=== PATIENT | male | born 1950 | race Caucasian/White ===

== ENCOUNTER 2016-04-28 04:21 | Observation (INO) | payer MEDICARE ==
[~2016-04-28] VITALS: Ht 172.7 cm; Wt 70.0 kg
[2016-04-28] VITALS (8 sets, daily range): BP systolic 92–135; BP diastolic 51–89; PULSE 63–75; RESP 16–26; TEMP 97.4–99.1; O2SAT 96–100
[~2016-04-28 04:21] MED LIST: ASPI81 PO; CIAL5TAB PO; CLOP75TA PO; LISI2.5T3 PO; METO50TA11 PO; NEXI40CA PO; NITR.4 SL; OXYC20TA; PRAV20 PO; PROT40TA PO; SPIR25TA PO
[2016-04-28] MEDS ORDERED: SODIUM CHLORIDE 0.9% FLUSH 5 ML FLUSH IVF PRN (04:45)
[2016-04-28 04:53] LABS: AUTOMATED NEUTROPHIL # 4.9 TH/MM3 (1.8-7.7); BASOPHIL # 0.1 TH/MM3 (0-0.2); BASOPHIL % 1.3 % (0.0-2.0); EOSINOPHIL # 0.6 TH/MM3 (0-0.4); EOSINOPHIL % 8.3 % (0.0-4.0); HEMATOCRIT 42.6 % (39.0-51.0); HEMO FLAGS DIFF FINAL; LYMPH % 14.4 % (9.0-44.0); MEAN CELL VOLUME 85.4 FL (80.0-100.0); MEAN CORPUSCULAR HEMOGLOBIN 28.6 PG (27.0-34.0); MEAN CORPUSCULAR HGB CONC 33.5 % (32.0-36.0); MONO % 7.7 % (0.0-8.0); NEUT % 68.3 % (16.0-70.0); PLATELET COUNT 232 TH/MM3 (150-450); RED BLOOD COUNT 4.99 MIL/MM3 (4.50-5.90); RED CELL DISTRIBUTION WIDTH 16.6 % (11.6-17.2); WHITE BLOOD COUNT 7.1 TH/MM3 (4.0-11.0)
[2016-04-28 05:04] LABS: APTT (PATIENT) 32.2 SEC (24.3-30.1); INTERNATIONAL NORMALIZED RATIO 1.8 RATIO; PROTHROMBIN TIME - PATIENT 20.7 SEC (9.8-11.6)
[2016-04-28 05:06] LABS: ANION GAP 8 MEQ/L (5-15); AST (GOT) 139 U/L (15-37); BICARBONATE 27.1 MEQ/L (21.0-32.0); BLOOD UREA NITROGEN 20 MG/DL (7-18); CHLORIDE 103 MEQ/L (98-107); GLOMERULAR FILTRATION RATE 76 ML/MIN (>89); MAGNESIUM 1.9 MG/DL (1.5-2.5); POTASSIUM 4.5 MEQ/L (3.5-5.1); SODIUM (NA) 138 MEQ/L (136-145)
[2016-04-28 05:11] LABS: ALKALINE PHOSPHATASE 157 U/L (45-117); ALT (GPT) 139 U/L (12-78); TOTAL BILIRUBIN ADULT 0.6 MG/DL (0.2-1.0)
[2016-04-28] MEDS ORDERED: LISI2.5T3 PO (05:18)
[2016-04-28] MEDS ORDERED: TORS10TA2 PO (05:18)
[2016-04-28] MEDS ORDERED: METO-426 PO (05:18)
[2016-04-28] MEDS ORDERED: COUM5TAB PO (05:18)
[2016-04-28] MEDS ORDERED: ASPI81CH CHEW (05:18)
[2016-04-28 05:28] LABS: CREATINE KINASE 58 U/L (39-308)
--- NOTE | 2016-04-28 05:32 | PD ---
HPI Chief Complaint: Respiratory Distress Time Seen by Provider: 04:37 Travel History International Travel<30 days: No Contact w/Intl Traveler<30days: No Traveled to known affect area: No History of Present Illness HPI The patient is 65 year old male who presents to the [facility] emergency department with a history of coronary artery disease and congestive heart failure with an ejection fraction that ranges between 14 and 18%, reportedly currently on the transplant list. The patient reports that he is followed by in [place], as well as a DrQian at the [facility] for his cardiac care. The patient reports that a month ago he developed atrial fibrillation. He reports that he is anticoagulated with warfarin. The patient reports that he is scheduled to have synchronized cardioversion. The patient reports that he has been experiencing shortness of breath over the last 2-3 months thought to be related to his congestive heart failure. The patient reports that this evening the shortness of breath came so severe just with any movement that he called ambulance services. He reports that he has had a chronic cough. He denies having any increased congestion, we gain, or lower extremity edema. He reports that he is on a diuretic. He reports that he last had a cardiac catheterization with stent placement in October 2015 in [place]. He reports that he's had a total of 4 stents placed previously. On review of systems, he reports that yesterday he did have an episode of diarrhea. The patient denies having any recent fevers, worsening cough, congestion, neck pain, chest pain, abdominal pain, vomiting, urinary symptoms, or neurologic symptoms. [facility] Past Medical History Narrative Medical The patient's past medical history is significant for hyperlipidemia, ulcerative colitis, history of pneumonia, history of acid reflux, history of an ischemic cardiomyopathy, history of recently being diagnosed with atrial fibrillation, coronary artery disease status post 4 prior stents being placed, history of atrial fibrillation Hx Anticoagulant Therapy: Yes Heart Rhythm Problems: No (PATIENT STATES HE DOES NOT HAVE ANY CARDIAC RHYTHM ISSUES DESPITE PACER) Cancer: No Cardiac Catheterization: Yes (4 STENTS) Cardiovascular Problems: Yes High Cholesterol: No Chest Pain: No Congestive Heart Failure: No Diminished Hearing: No Diverticulitis: Yes Endocrine: No Gastrointestinal Disorders: Yes (ULCERATIVE CHOLITIS, ESOPHAGEAL REFLUX) GERD: Yes Genitourinary: No Hiatal Hernia: Yes (REPAIRED 25 YRS AGO) Hypertension: Yes Immune Disorder: No Implanted Vascular Access Dvce: Yes Musculoskeletal: No Neurologic: No Psychiatric: No Reproductive: No Respiratory: Yes Myocardial Infarction: Yes Ulcer: Yes Influenza Vaccination: No Past Surgical History Narrative Surgical The patient's past surgical history is significant for cardiac catheterization with 4 prior stents placed, history of a hiatal hernia repair with Maribel fundoplication, bilateral rotator cuff surgery, sinus surgery, back surgery, central hernia repair, tonsillectomy, partial colon resection, appendectomy, right femoral-popliteal bypass. Abdominal Surgery: Yes (HERNIA REPAIR X2) AICD: Yes (2007 metronic defib placed on r; defib on l removed) Appendectomy: Yes Cardiac Surgery: Yes (PACEMAKER) Cholecystectomy: Yes Coronary Stent: Yes Ear Surgery: No Endocrine Surgery: No Eye Surgery: Yes (2007) Genitourinary Surgery: No Neurologic Surgery: Yes (BACK) Oral Surgery: Yes (TONSILS REMOVED) Pacemaker: Yes Thoracic Surgery: No Tonsillectomy: Yes (1966) Other Surgery: Yes (SINUS KIMBERLY; 10" bowel removed 1986; hernia 2007) Social History Alcohol Use: Yes (BEER A DAY) Tobacco Use: No Substance Use: No Allergies-Medications (Allergen,Severity, Reaction): Coded Allergies: Clindamycin (Verified Allergy, Severe, RASH, FEVER, 04/28/16) Penicillin (Verified Allergy, Severe, RASH, 04/28/16) Remicade (Verified Allergy, Severe, FEVER, RASH, 04/28/16) Reported Meds & Prescriptions Reported Meds & Active Scripts Active Reported Coumadin (Warfarin) 5 Mg Tab 5 Mg PO DAILY Torsemide 10 Mg Tab 10 Mg PO DAILY PRN Lisinopril 2.5 Mg Tab 2.5 Mg PO DAILY Metoprolol Tartrate 75 Mg Tab 75 Mg PO BID Aspirin 81 Mg Chew 81 Mg CHEW DAILY Review of Systems General / Constitutional: No: Fever Eyes: No: Visual changes HENT: No: Headaches Cardiovascular: Positive: Dyspnea on exertion, No: Chest Pain or Discomfort, Edema Respiratory: Positive: Cough (chronic, no worsening), Shortness of Breath Gastrointestinal: No: Abdominal Pain Genitourinary: No: Dysuria Musculoskeletal: No: Pain Skin: No Rash Neurologic: No: Weakness Psychiatric: No: Depression Endocrine: No: Polydipsia Hematologic/Lymphatic: No: Easy Bruising Physical Exam Narrative General: The patient is a well-developed well-nourished male in no acute distress. Head and Neck exam: Head is normocephalic atraumatic. Eyes: Pupils are equal round and reactive to light. Nose: Midline septum with pink mucous membranes Mouth: Dentition unremarkable. Moist mucus membranes. Posterior oropharynx is not erythematous. No tonsillar hypertrophy. Uvula midline. Airway patent. Neck: No palpable lymphadenopathy. No nuchal rigidity. No thyromegaly. Cardiovascular: Regular rate and rhythm without murmurs, gallops, or rubs. Atrial flutter noted on telemetry. Lungs: The patient has decreased breath sounds in bilateral bases, no wheezes, rhonchi , or crackles are audible. Patient's O2 saturation on room air is 99-100%. Abdomen: Soft, without tenderness to palpation in all 4 quadrants of the abdomen. No guarding, rebound, or rigidity. Normal bowel sounds are audible. Extremities: No clubbing or cyanosis, the patient has trace lower extremity edema. 2+ pulses in all 4 extremities. Back: No spinous process tenderness to palpation. No costovertebral angle tenderness to palpation. Neurologic Exam: Grossly nonfocal. Skin Exam: No rash noted. Intact skin that is warm and dry. Data Data Last Documented VS Vital Signs Date Time Temp Pulse Resp B/P Pulse Ox O2 Delivery O2 Flow Rate FiO2 04/28/16 04:44 100 Nasal Cannula 2 04/28/16 04:39 26 04/28/16 04:35 97.9 68 114/82 Orders Electrocardiogram (04/28/16 04:40) B-Type Natriuretic Peptide (04/28/16 04:40) Ckmb (Isoenzyme) Profile (04/28/16 04:40) Complete Blood Count With Diff (04/28/16 04:40) Comprehensive Metabolic Panel (04/28/16 04:40) D-Dimer (04/28/16 04:40) Magnesium (Mg) (04/28/16 04:40) Prothrombin Time / Inr (Pt) (04/28/16 04:40) Act Partial Throm Time (Ptt) (04/28/16 04:40) Troponin I (04/28/16 04:40) Lipase (04/28/16 04:40) Chest, Single Ap (04/28/16 04:40) Ecg Monitoring (04/28/16 04:40) Bilateral Bp Monitoring (04/28/16 04:40) Iv Access Insert/Monitor (04/28/16 04:40) Oximetry (04/28/16 04:40) Oxygen Administration (04/28/16 04:40) Sodium Chloride 0.9% Flush (Ns Flush) (04/28/16 04:45) Nitroglycerin 2% Oint (Nitroglycerin 2% (04/28/16 05:45) Aspirin Chew (Aspirin Chew) (04/28/16 05:45) Ct Pulmonary Angiogram (04/28/16 05:34) Magnesium Sulfate 1 Gm Premix (Magnesium (04/28/16 05:45) Thiamine Inj (Thiamine Inj) (04/28/16 05:45) Iohexol 350 Inj (Omnipaque 350 Inj) (04/28/16 06:05) Lactic Acid Sepsis Protocol (04/28/16 06:16) Blood Culture (04/28/16 06:16) Aztreonam Inj (Azactam Inj) (04/28/16 06:16) Levofloxacin 750 Mg Premix Inj (Levaquin (04/28/16 06:16) Furosemide Inj (Lasix Inj) (04/28/16 06:30) Admit Order (Ed Use Only) (04/28/16 06:32) Labs Laboratory Tests Test 04/28/16 04:45 White Blood Count 7.1 TH/MM3 Red Blood Count 4.99 MIL/MM3 Hemoglobin 14.3 GM/DL Hematocrit 42.6 % Mean Corpuscular Volume 85.4 FL Mean Corpuscular Hemoglobin 28.6 PG Mean Corpuscular Hemoglobin 33.5 % Concent Red Cell Distribution Width 16.6 % Platelet Count 232 TH/MM3 Mean Platelet Volume 8.1 FL Neutrophils (%) (Auto) 68.3 % Lymphocytes (%) (Auto) 14.4 % Monocytes (%) (Auto) 7.7 % Eosinophils (%) (Auto) 8.3 % Basophils (%) (Auto) 1.3 % Neutrophils # (Auto) 4.9 TH/MM3 Lymphocytes # (Auto) 1.0 TH/MM3 Monocytes # (Auto) 0.6 TH/MM3 Eosinophils # (Auto) 0.6 TH/MM3 Basophils # (Auto) 0.1 TH/MM3 CBC Comment DIFF FINAL Differential Comment Prothrombin Time 20.7 SEC Prothromb Time International 1.8 RATIO Ratio Activated Partial 32.2 SEC Thromboplast Time D-Dimer Quantitative (PE/DVT) 1.94 MG/L FEU Sodium Level 138 MEQ/L Potassium Level 4.5 MEQ/L Chloride Level 103 MEQ/L Carbon Dioxide Level 27.1 MEQ/L Anion Gap 8 MEQ/L Blood Urea Nitrogen 20 MG/DL Creatinine 0.98 MG/DL Estimat Glomerular Filtration 76 ML/MIN Rate Random Glucose 87 MG/DL Calcium Level 8.7 MG/DL Magnesium Level 1.9 MG/DL Total Bilirubin 0.6 MG/DL Aspartate Amino Transf 139 U/L (AST/SGOT) Alanine Aminotransferase 139 U/L (ALT/SGPT) Alkaline Phosphatase 157 U/L Total Creatine Kinase 58 U/L Troponin I 0.03 NG/ML B-Type Natriuretic Peptide 1264 PG/ML Total Protein 7.1 GM/DL Albumin 3.1 GM/DL Lipase 66 U/L [facility] Medical Decision Making Medical Screen Exam Complete: Yes Emergency Medical Condition: Yes Medical Record Reviewed: Yes Interpretation(s) Last Impressions Chest X-Ray 04/28/16 0440 Signed Impressions: Service Date/Time: Thursday, April 28, 2016 04:38 - CONCLUSION: 1. Bibasilar density could be atelectasis or pneumonia. 2. Cardiomegaly. Trever Hinojosa MD Differential Diagnosis Congestive heart failure exacerbation, versus pneumonia, versus pulmonary hypertension, versus pulmonary fibrosis Narrative Course During the course of the patients emergency department visit, the patients history, examination, and differential diagnosis were reviewed with the patient. The patient had IV access obtained and blood work sent for analysis. The patient was placed on a monitor technician with oximetry and blood pressure monitoring. An EKG was done on arrival. The patient's EKG shows atrial flutter heart rate of 66, no acute ST segment elevation is noted. Occasional PVCs are noted. The patient was provided aspirin 162 mg by mouth 1. The patient was given nitroglycerin 1/2 inch the chest mcdonald patient's blood pressures a systolic in the 1 teens to 120s. The patients laboratory studies were reviewed and remarkable for a CBC that shows a white count 7.1, hemoglobin 14.3, platelets 232 with eosinophils 8.3. CMP is remarkable for BUN is 20, GFR of 76, AST 139, ALT 139, alkaline phosphatase 157, total bilirubin 0.6, initial set of cardiac enzymes are negative, BNP is 1264, lipase 66, INR is 1.8, d-dimer is 1.94, CTA to rule out PE has been ordered. Radiology studies were reviewed and remarkable for a chest x-ray that shows by bibasilar infiltrates, atelectasis versus pneumonia according to the reading radiologist, cardiomegaly. I suspect that the patient's infiltrates are really related to pulmonary edema given the patient's history of congestive heart failure and elevated BNP. However, a CTA to rule out PE has also been ordered which showed shows a more detailed the patient's lungs. In the meantime the patient had blood cultures 2 collected, lactic acid was ordered. The patient was given an initial dose of IV antibiotics to cover for pneumonia. The patient was also given Lasix 40 mg IV. CTA shows a filling defect within the right lower lobe branches that could be related to small pulmonary emboli, versus unopacified blood, radiologist recommends repeating the study in 24 hours, may be warranted. Cardiomegaly with evidence of coronary artery stenting is noted, minimal right basilar density which could be atelectasis versus minimal infiltrate. Given the fact that the patient is subtherapeutic regarding his anticoagulation on Coumadin, the patient will be started on heparin while PE is being further evaluated. The patients results were discussed with the patient, including the plan of care. I explained that further testing and/ or monitoring is indicated based on the patients history, examination, and/ or laboratory findings. Therefore, I recommended admission for additional evaluation. The patient expressed understanding and was agreeable with this plan. The patient was admitted to the hospital in stable condition and [facility] Sepsis Criteria SIRS Criteria (2 or more): RR > 20 or PaCO2 < 32 Physician Communication Physician Communication The patient's case is discussed with Dr. Watts who did agree to admit the patient for further evaluation and treatment at this time. Diagnosis Primary Impression: Acute exacerbation of congestive heart failure Qualified Code: I50.23 - Acute on chronic systolic congestive heart failure Additional Impression: Atrial flutter Qualified Code: I48.92 - Atrial flutter, unspecified type Admitting Information Admitting Physician Requests: Evelyn Catherine MD Apr 28, 2016 05:32
[2016-04-28] MEDS ORDERED: MAGNESIUM SULFATE 1 GM PREMIX 100 ML IV ONE (05:45)
[2016-04-28] MEDS ORDERED: NITROGLYCERIN 2% OINT 1 GM PACKET TOPICAL ONE (05:45)
[2016-04-28] MEDS ORDERED: THIAMINE INJ 100 MG in SODIUM CHLORIDE 0.9% INJ 100 ML IV ONE (05:45)
[2016-04-28] MEDS ORDERED: ASPIRIN 81 MG CHEW TAB CHEW ONE (05:45)
--- NOTE | 2016-04-28 05:47 | RADRPT ---
EXAM DATE/TIME: 04/28/2016 04:38 [facility] COMPARISON: CHEST SINGLE AP, February 12, 2014, 5:13. INDICATIONS : Pt having shortness of breath x few hours. MEDICAL HISTORY : None. SURGICAL HISTORY : None. ENCOUNTER: Initial ACUITY: 1 day PAIN SCORE: 8/10 LOCATION: Bilateral chest FINDINGS: A single view of the chest demonstrates cardiomegaly and a right-sided defibrillator, unchanged. Righ t basilar density. The cardiomediastinal contours are unremarkable. Osseous structures are intact. CONCLUSION: 1. Bibasilar density could be atelectasis or pneumonia. 2. Cardiomegaly. Trever Hinojosa MD on April 28, 2016 at 5:43 Board Certified Radiologist. This report was verified electronically.
[2016-04-28] MEDS ORDERED: IOHEXOL 350 MG/ML 10 ML VIAL (for RAD DIAG) IV ONE (06:05)
[2016-04-28] MEDS ORDERED: LEVOFLOXACIN 750 MG PREMIX INJ 150 ML IV STA (06:16)
[2016-04-28] MEDS ORDERED: AZTREONAM INJ 2,000 MG in SODIUM CHLORIDE 0.9% INJ 100 ML IV STA (06:16)
[2016-04-28] MEDS ORDERED: FUROSEMIDE 40 MG/4 ML VIAL IV PUSH ONE (06:30)
[2016-04-28] MEDS ORDERED: BISACODYL 10 MG SUPP PR PRN (06:45)
[2016-04-28] MEDS ORDERED: SODIUM CHLORIDE 0.9% FLUSH 5 ML FLUSH FLUSH PRN (06:45)
[2016-04-28] MEDS ORDERED: RESP: ALBUTEROL 2.5 MG/IPRATROPIUM 0.5 MG NEB (PRN) NEB (06:45)
[2016-04-28] MEDS ORDERED: ACETAMINOPHEN/HYDROcodone 325 MG/5 MG TAB PO PRN (06:45)
[2016-04-28] MEDS ORDERED: ACETAMINOPHEN 325 MG TAB PO PRN (06:45)
--- NOTE | 2016-04-28 06:45 | RADRPT ---
EXAM DATE/TIME: 04/28/2016 05:52 [facility] COMPARISON: CHEST SINGLE AP, April 28, 2016, 4:38. INDICATIONS : Short of breath. Evaluate for embolism. IV CONTRAST: 80 cc Omnipaque 350 (iohexol) IV RADIATION DOSE: 9.16 CTDIvol (mGy) MEDICAL HISTORY : Hypertension. Myocardial infarction. Gastroesophageal reflux disease.Cardiac stent. SURGICAL HISTORY : Appendectomy. Cholecystectomy.Pacemaker.Cardiac catherization. ENCOUNTER: Initial ACUITY: 1 day PAIN SCALE: 0/10 LOCATION: chest TECHNIQUE: Volumetric scanning of the chest was performed using a pulmonary embolism protocol MIP images were re constructed. Using automated exposure control and adjustment of the mA and/or kV according to patien t size, radiation dose was kept as low as reasonably achievable to obtain optimal diagnostic quality images. FINDINGS: PULMONARY ARTERIES: Small filling defect within right lower lobe branches and suspected small pulmonary emboli versus sofia pacified blood. No filling defects are seen in the pulmonary arteries through the segmental level on the left.LUNGS: There is minimal density in the right lower lobe. Left lung clear. There is pneumothorax . No concer calista pulmonary nodule is visualized. PLEURAE: There is no pleural thickening or pleural effusion. MEDIASTINUM: There is good visualization of the great vessels of the middle mediastinum. No evidence of mediastin al or hilar adenopathy/mass. Cardiomegaly. Coronary artery stents. MUSCULOSKELETAL: Within normal limits for patient age. MISCELLANEOUS: The visualized upper abdominal organs demonstrate no acute abnormality. CONCLUSION: 1. Filling defects within right lower lobe branches could be related to small pulmonary emboli versus unopacified blood. Repeat study in 24 hours may be warranted. 2. Cardiomegaly and coronary artery stents. 3. Minimal right basilar density, could be atelectasis or minimal infiltrate. Trever Hinojosa MD on April 28, 2016 at 6:34 Board Certified Radiologist. This report was verified electronically.
[2016-04-28] MEDS ORDERED: PILL SPLITTER OTHER PRN (07:30)
[2016-04-28] MEDS: HEPARIN-D5W INJ 250 ML IV SCH ×2 (08:11→23:56)
--- NOTE | 2016-04-28 08:23 | EKG ---
Date Performed: 04/28/2016 Time Performed: 04:30:03 PTAGE: 65 years EKG: ATRIAL FLUTTER/TACHYCARDIA WITH ABERRANT CONDUCTION OR VENTRICULAR PREMATURE COMPLEXES ANTE ROLATERAL MYOCARDIAL INFARCTION NONSPECIFIC ST/T CHANGES ABNORMAL ECG PREVIOUS TRACING : 02/12/2014 05.05 Compared to previous tracing, atrial flutter has replaced S inus rhythm . DOCTOR: Augustin Hamilton Interpretating Date/Time 04/28/2016 08:22:05
--- NOTE | 2016-04-28 08:50 | HHI.HP ---
[facility] Nikolas Diego M.D. Admission Diagnosis CHF exacerbation Diagnoses: Chief Complaint: Shortness of breath, CHF Travel History International Travel<30 Days: No Contact w/Intl Traveler <30 Da: No Traveled to Known Affected Are: No History of Present Illness Mr. Hooker is a pleasant 65-year-old male with a history of coronary artery disease status post 4 stents, congestive heart failure with LVEF 14-18% who presents to the emergency department today due to worsening shortness of breath over the last 2-3 months. On the day of admission, his shortness of breath became very severe within small movement and subsequently called ambulance service. Per patient he is currently on a transplant list. His last cardiac catheterization with stent placements was done in October 2015 in [place]. At the time of this interview patient reports much improvement of his symptoms after Lasix in the emergency department. He denies any chest pain, shortness of breath, fever or chills. Denies any changes in bowel or bladder habits. He has seen Dr. Alicia before. Review of Systems ROS Limitations: Other (negative except as noted in the history of present illness) Past Family Social History Past Medical History Ischemic cardiomyopathy, atrial fibrillation, CAD status post stent placements. Ulcerative colitis, GERD Past Surgical History Hernia repair 2, appendectomy, cholecystectomy, pacemaker placement, tonsillectomy, back surgery, bowel resection in 1986. Reported Medications Coumadin (Warfarin) 5 Mg Tab 5 Mg PO DAILY Torsemide 10 Mg Tab 10 Mg PO DAILY PRN Lisinopril 2.5 Mg Tab 2.5 Mg PO DAILY Metoprolol Tartrate 75 Mg Tab 75 Mg PO BID Aspirin 81 Mg Chew 81 Mg CHEW DAILY Allergies: Coded Allergies: Clindamycin (Verified Allergy, Severe, RASH, FEVER, 04/28/16) Penicillin (Verified Allergy, Severe, RASH, 04/28/16) Remicade (Verified Allergy, Severe, FEVER, RASH, 04/28/16) Family History No family history of heart disease, Alzheimer's, Parkinson's. Social History Drinks 1 beer a day. Denies smoking or using illicit drugs. Physical Exam Vital Signs Vital Signs Date Time Temp Pulse Resp B/P Pulse Ox O2 Delivery O2 Flow Rate FiO2 04/28/16 06:00 63 21 135/89 100 Nasal Cannula 2 04/28/16 04:44 100 Nasal Cannula 2 04/28/16 04:39 26 100 Nasal Cannula 2 04/28/16 04:35 97.9 68 26 114/82 100 Physical Exam GENERAL: This is a well-nourished, well-developed patient, in no apparent distress. SKIN: No rashes, ecchymoses or lesions. Warm and dry. HEAD: Atraumatic. Normocephalic. No temporal or scalp tenderness. EYES: Pupils equal round and reactive. No injection or drainage. ENT: Nose without bleeding, purulent drainage or septal hematoma. Airway patent. NECK: Trachea midline. No lymphadenopathy. Supple, nontender, no meningeal signs. CARDIOVASCULAR: Regular rate and rhythm without murmurs, gallops, or rubs. No JVD. RESPIRATORY: Clear to auscultation. Breath sounds equal bilaterally. No wheezes , rales, or rhonchi. GASTROINTESTINAL: Abdomen soft, non-tender, nondistended. No guarding. MUSCULOSKELETAL: Extremities without clubbing, cyanosis, or edema. NEUROLOGICAL: Awake and alert. Cranial nerves II through XII intact. No focal neurological deficits. Normal speech. Laboratory Laboratory Tests Test 04/28/16 04/28/16 04:45 06:30 White Blood Count 7.1 Red Blood Count 4.99 Hemoglobin 14.3 Hematocrit 42.6 Mean Corpuscular Volume 85.4 Mean Corpuscular Hemoglobin 28.6 Mean Corpuscular Hemoglobin 33.5 Concent Red Cell Distribution Width 16.6 Platelet Count 232 Mean Platelet Volume 8.1 Neutrophils (%) (Auto) 68.3 Lymphocytes (%) (Auto) 14.4 Monocytes (%) (Auto) 7.7 Eosinophils (%) (Auto) 8.3 Basophils (%) (Auto) 1.3 Neutrophils # (Auto) 4.9 Lymphocytes # (Auto) 1.0 Monocytes # (Auto) 0.6 Eosinophils # (Auto) 0.6 Basophils # (Auto) 0.1 CBC Comment DIFF FINAL Differential Comment Prothrombin Time 20.7 Prothromb Time International 1.8 Ratio Activated Partial 32.2 Thromboplast Time D-Dimer Quantitative (PE/DVT) 1.94 Sodium Level 138 Potassium Level 4.5 Chloride Level 103 Carbon Dioxide Level 27.1 Anion Gap 8 Blood Urea Nitrogen 20 Creatinine 0.98 Estimat Glomerular Filtration 76 Rate Random Glucose 87 Calcium Level 8.7 Magnesium Level 1.9 Total Bilirubin 0.6 Aspartate Amino Transf 139 (AST/SGOT) Alanine Aminotransferase 139 (ALT/SGPT) Alkaline Phosphatase 157 Total Creatine Kinase 58 Troponin I 0.03 B-Type Natriuretic Peptide 1264 Total Protein 7.1 Albumin 3.1 Lipase 66 Lactic Acid Level 1.0 Date/Time Procedure Status Source Growth 04/28/16 06:35 Aerobic Blood Culture Received Blood Peripheral Pending 04/28/16 06:35 Anaerobic Blood Culture Received Blood Peripheral Pending Result Diagram: 04/28/1644404/28/[address] Angiography 04/28/1634 Signed Impressions: Service Date/Time: Thursday, April 28, 2016 05:52 - CONCLUSION: 1. Filling defects within right lower lobe branches could be related to small pulmonary emboli versus unopacified blood. Repeat study in 24 hours may be warranted. 2. Cardiomegaly and coronary artery stents. 3. Minimal right basilar density, could be atelectasis or minimal infiltrate. Trever Hinojosa MD Chest X-Ray 04/28/16439 Signed Impressions: Service Date/Time: Thursday, April 28, 2016 04:38 - CONCLUSION: 1. Bibasilar density could be atelectasis or pneumonia. 2. Cardiomegaly. Trever Hinojosa MD Assessment and Plan Problem List: (1) Acute exacerbation of congestive heart failure ICD Code: I50.9 Status: Acute (2) Ischemic cardiomyopathy ICD Code: I25.5 Status: Acute (3) CAD (coronary artery disease) ICD Code: I25.10 Status: Chronic Assessment and Plan Mr. Hooker is a 65-year-old male with a history of coronary artery disease status post 4 stents, ischemic cardiomyopathy with ejection fraction 14-18% status post AICD placement who presents to the emergency department due to shortness of breath that started 2-3 months ago but much worse last night. After Lasix in the ED patient reports much improvement of his symptoms. - Acute exacerbation of congestive heart failuresystolic - BNP 1264. - Received furosemide 40 mg IV once. Also received Levaquin IV and aztreonam IV. - CT PE protocol is equivocal regarding pulmonary embolism. Radiologist recommends repeat CT PE protocol in 24 hours. - If repeat CT PE shows no PE, we can discontinue heparin drip. - Patient's blood pressure is on the lower side. We will switch to Bumex 1mg PO Qday starting 04/29/2016. - Patient reports leg cramps when he takes Torsemide. - Possible Community Acquired pneumonia - Patient received aztreonam and levofloxacin in the ED. - We'll continue Levaquin PO for 7 days. - Ischemic cardiomyopathy - LVEF reportedly 14-18%. 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. - AICD noted on CXR - Continue Aspirin, metoprolol 75mg Qday, Lisinopril 2.5mg Qday. - Atrial flutter. - EKG reviewed by me. - Currently on warfarin. INR 1.8 on admission. - Will consult Dr. Alicia for further input. Full code. Warfarin (INR 1.8), Heparin drip. Problem Qualifiers (1) Acute exacerbation of congestive heart failure: Qualified Code: I50.23 - Acute on chronic systolic congestive heart failure Iris Damon DO Apr 28, 2016 08:50
[2016-04-28] MEDS ORDERED: WARFARIN SOD 5 MG TAB PO SCH (09:00)
[2016-04-28 09:36] LABS: HEMATOCRIT 43.2 % (39.0-51.0); MEAN CELL VOLUME 84.2 FL (80.0-100.0); MEAN CORPUSCULAR HEMOGLOBIN 28.1 PG (27.0-34.0); MEAN CORPUSCULAR HGB CONC 33.3 % (32.0-36.0); PLATELET COUNT 233 TH/MM3 (150-450); RED BLOOD COUNT 5.13 MIL/MM3 (4.50-5.90); RED CELL DISTRIBUTION WIDTH 16.4 % (11.6-17.2); REVIEW FLAG FINAL; WHITE BLOOD COUNT 7.3 TH/MM3 (4.0-11.0)
[2016-04-28 09:49] LABS: APTT (PATIENT) 39.7 SEC (24.3-30.1); INTERNATIONAL NORMALIZED RATIO 2.1 RATIO; PROTHROMBIN TIME - PATIENT 23.8 SEC (9.8-11.6)
[2016-04-28] MEDS: METOPROLOL TARTRATE 25 MG TAB PO SCH ×2 (11:03→22:59)
[2016-04-28] MEDS: LISINOPRIL 5 MG TAB PO SCH (11:03)
[2016-04-28] MEDS: SODIUM CHLORIDE 0.9% FLUSH 5 ML FLUSH FLUSH SCH ×2 (11:03→19:45)
[2016-04-28] MEDS: ONDANSETRON HCL 4 MG/2 ML VIAL IVP PRN ×2 (13:05→19:46)
[2016-04-28] MEDS ORDERED: PROCHLORPERAZINE INJ 10 MG/2 ML VIAL IM PRN (16:00)
[2016-04-28 17:26] LABS: APTT (PATIENT) 57.4 SEC (24.3-30.1)
[2016-04-28] MEDS: WARFARIN SOD 5 MG TAB PO SCH (17:48)
[2016-04-28 22:14] LABS: APTT (PATIENT) 58.4 SEC (24.3-30.1)
[2016-04-29] VITALS (8 sets, daily range): BP systolic 94–103; BP diastolic 57–74; PULSE 56–72; RESP 16–20; TEMP 96.5–98.4; O2SAT 94–99
[2016-04-29 05:13] LABS: AUTOMATED NEUTROPHIL # 4.1 TH/MM3 (1.8-7.7); BASOPHIL # 0.1 TH/MM3 (0-0.2); BASOPHIL % 1.2 % (0.0-2.0); EOSINOPHIL # 0.7 TH/MM3 (0-0.4); EOSINOPHIL % 9.4 % (0.0-4.0); HEMATOCRIT 43.7 % (39.0-51.0); HEMO FLAGS DIFF FINAL; LYMPH % 21.1 % (9.0-44.0); LYMPHOCYTE # 1.5 TH/MM3 (1.0-4.8); MEAN CELL VOLUME 84.6 FL (80.0-100.0); MEAN CORPUSCULAR HEMOGLOBIN 28.2 PG (27.0-34.0); MEAN CORPUSCULAR HGB CONC 33.3 % (32.0-36.0); MONO % 10.3 % (0.0-8.0); PLATELET COUNT 223 TH/MM3 (150-450); RED BLOOD COUNT 5.16 MIL/MM3 (4.50-5.90); RED CELL DISTRIBUTION WIDTH 16.2 % (11.6-17.2); WHITE BLOOD COUNT 7.1 TH/MM3 (4.0-11.0)
[2016-04-29 05:29] LABS: ALT (GPT) 94 U/L (12-78); ANION GAP 6 MEQ/L (5-15); AST (GOT) 46 U/L (15-37); BICARBONATE 27.8 MEQ/L (21.0-32.0); BLOOD UREA NITROGEN 19 MG/DL (7-18); CHLORIDE 103 MEQ/L (98-107); GLOMERULAR FILTRATION RATE 65 ML/MIN (>89); MAGNESIUM 1.8 MG/DL (1.5-2.5); POTASSIUM 4.1 MEQ/L (3.5-5.1); SODIUM (NA) 137 MEQ/L (136-145)
[2016-04-29 05:32] LABS: ALKALINE PHOSPHATASE 121 U/L (45-117); TOTAL BILIRUBIN ADULT 0.8 MG/DL (0.2-1.0)
[2016-04-29] MEDS ORDERED: LEVOFLOXACIN 750 MG PREMIX INJ 150 ML IV SCH (06:00)
--- NOTE | 2016-04-29 07:27 | MB ---
cc: ISAIAS COUGHLIN HANSCY M.D. DATE OF CONSULTATION: 04/28/2016 REASON FOR CONSULTATION Uncompensated heart failure. HISTORY OF PRESENT ILLNESS Mr. Hooker is a 65-year-old gentleman with coronary artery disease, previous PTCA plus stent, ejection fraction 14-18%, previously seen in my office room, was referred for transplant at [facility]. This October he was in [place] and had another stent placement. He is in atrial fibrillation/atrial flutter. He is supposed to be at [facility] today for cardioversion as well as a transplant work-up. He has atrial flutter. The gentleman developed shortness of breath and tiredness. He was brought to the emergency room. He was found in heart failure. IV diuretic was given. I was consulted for further evaluation and management. The chart was reviewed. The patient was evaluated. ALLERGIES 1. CLINDAMYCIN. 2. PENICILLIN. 3. REMICADE. SOCIAL HISTORY Negative for smoking and drinking. FAMILY HISTORY Noncontributory to his current medical condition. MEDICATIONS 1. Aspirin. 2. Heparin. 3. Levaquin. 4. Thiamine. 5. Magnesium. 6. Lasix. 7. Levofloxacin. 8. Lisinopril. 9. Metoprolol. 10.Morphine p.r.n. 11.Coumadin. REVIEW OF SYSTEMS He refers tiredness and shortness of breath, but no chest pain or chest discomfort. PHYSICAL EXAMINATION GENERAL: Alert, fully oriented. VITAL SIGNS: Blood pressure 98/63, pulse 63, respiratory rate 18. LUNGS: Ventilated. CARDIOVASCULAR: S1, S2, irregular. No gallop. ABDOMEN: Soft. No mass. EXTREMITIES: No edema. EKG DATA Electrocardiogram shows atrial flutter. LABORATORY DATA Hemoglobin 14.4, white blood cell count 7.3. Potassium 4.5, creatinine 0.98. BNP close to 1300. INR 2.1. ASSESSMENT AND RECOMMENDATION Mr. Hooker is very symptomatic. He has heart failure. He is on optimal medical treatment. He has severe coronary artery disease. Because his ejection fraction is 14% that makes him less likely to tolerate atrial flutter. He is apparently scheduled to be ablated at [facility]. At this point I am going to cardiovert him into sinus rhythm and send him to [facility] for ablation and transplant work-up. I will continue on the current medical management. He can be switched n.p.o. Lasix in the morning. The case was extensively discussed with him. I will keep him n.p.o. after breakfast and cardioversion tomorrow. MD CASSANDRA Sepulveda/TAMMY /8:05 PM /7:15 AM
[2016-04-29] MEDS: BUMETANIDE 1 MG TAB PO SCH (09:01)
[2016-04-29] MEDS: METOPROLOL TARTRATE 25 MG TAB PO SCH ×2 (09:01→20:26)
[2016-04-29] MEDS: SODIUM CHLORIDE 0.9% FLUSH 5 ML FLUSH FLUSH SCH ×2 (09:01→20:26)
[2016-04-29] MEDS: LISINOPRIL 5 MG TAB PO SCH (09:01)
[2016-04-29] MEDS: ASPIRIN 81 MG CHEW TAB CHEW SCH (09:01)
[2016-04-29] MEDS: LEVOFLOXACIN 500 MG TAB PO SCH (09:01)
[2016-04-29] MEDS ORDERED: INFLUENZA VIRUS VACCINE (QUADRIVALENT) 0.5 ML SYR IM ONE (10:00)
[2016-04-29] MEDS ORDERED: PNEUMOCOCCAL POLYVALENT INJ 25 MCG/0.5 ML SYR IM ONE (10:00)
[2016-04-29 11:02] LABS: APTT (PATIENT) 53.4 SEC (24.3-30.1)
[2016-04-29] MEDS ORDERED: PROPOFOL 200 MG/20 ML AMP IV ONE (12:26)
--- NOTE | 2016-04-29 16:43 | EKG ---
Date Performed: 04/28/2016 Time Performed: 10:56:14 PTAGE: 65 years EKG: ATRIAL FLUTTER/TACHYCARDIA WITH ABERRANT CONDUCTION OR VENTRICULAR PREMATURE COMPLEXES Prol onged corrected QT interval Consider anterolateral MA-age indterminate PREVIOUS TRACING : 04/28/2016 04.30.03 DOCTOR: Gerardo Miranda Interpretating Date/Time 04/29/2016 16:43:01
--- NOTE | 2016-04-29 16:51 | EKG ---
Date Performed: 04/28/2016 Time Performed: 17:03:55 PTAGE: 65 years EKG: ATRIAL FLUTTER/TACHYCARDIA Consider anterolateral [place]-ageindterminate. Prolonged corrected Q T interval PREVIOUS TRACING : 04/28/2016 10.56 DOCTOR: Gerardo Miranda Interpretating Date/Time 04/29/2016 16:49:51
--- NOTE | 2016-04-29 16:51 | EKG ---
Date Performed: 04/29/2016 Time Performed: 05:06:28 PTAGE: 65 years EKG: ATRIAL FLUTTER/TACHYCARDIA MARKED LEFT AXIS DEVIATION INTRAVENTRICULAR CONDUCTION DELAY Con sideranteroseptal [place]-ageindeterminate. PREVIOUS TRACING : 04/28/2016 22.40 DOCTOR: Gerardo Miranda Interpretating Date/Time 04/29/2016 16:51:19
--- NOTE | 2016-04-29 16:51 | EKG ---
Date Performed: 04/28/2016 Time Performed: 22:40:26 PTAGE: 65 years EKG: ATRIAL FLUTTER/TACHYCARDIA Consideranteroseptal [place]-ageindeterminate. Prolonged corrected QT interval PREVIOUS TRACING : 04/28/2016 17.03 DOCTOR: Gerardo Miranda Interpretating Date/Time 04/29/2016 16:50:36
[2016-04-29] MEDS: WARFARIN SOD 5 MG TAB PO SCH (17:11)
--- NOTE | 2016-04-29 17:17 | HHI.PR ---
Subjective Remarks Follow up for cardiomyopathy, Atrial flutter. Mr. Hooker is doing well. No acute concerns. He has been evaluated by EP (Dr. Alicia) and an ablation procedure is planned for today. Denies any CP, SOB, fever, chills. Objective Vitals Vital Signs Date Time Temp Pulse Resp B/P Pulse Ox O2 Delivery O2 Flow Rate FiO2 04/29/16 15:47 97.3 66 16 102/65 97 04/29/16 12:23 97.3 66 16 100/57 97 04/29/16 08:05 96.5 65 16 103/66 99 04/29/16 04:11 98.4 72 20 98/58 94 04/28/16 22:56 98.1 69 20 100/58 97 04/28/16 19:30 99.1 63 20 98/63 98 I/O 04/28/16 04/28/16 04/28/16 04/29/16 04/29/16 04/29/16 06:59 14:59 22:59 06:59 14:59 22:59 Output Total 600 ml Balance -600 ml Output Urine Total 600 ml # Voids 1 Result Diagram: 04/29/16 0500 04/29/16 [address] Angiography 04/28/16 0534 Signed Impressions: Service Date/Time: Thursday, April 28, 2016 05:52 - CONCLUSION: 1. Filling defects within right lower lobe branches could be related to small pulmonary emboli versus unopacified blood. Repeat study in 24 hours may be warranted. 2. Cardiomegaly and coronary artery stents. 3. Minimal right basilar density, could be atelectasis or minimal infiltrate. Trever Hinojosa MD Chest X-Ray 04/28/16 0440 Signed Impressions: Service Date/Time: Thursday, April 28, 2016 04:38 - CONCLUSION: 1. Bibasilar density could be atelectasis or pneumonia. 2. Cardiomegaly. Trever Hinojosa MD Objective Remarks GENERAL: AOX3, NAD. SKIN: Warm and dry. HEAD: Normocephalic. EYES: No scleral icterus. No injection or drainage. NECK: Supple, trachea midline. No JVD or lymphadenopathy. CARDIOVASCULAR: Regular rate and rhythm without murmurs, gallops, or rubs. RESPIRATORY: Breath sounds equal bilaterally. No accessory muscle use. GASTROINTESTINAL: Abdomen soft, non-tender, nondistended. MUSCULOSKELETAL: No cyanosis, or edema. BACK: Nontender without obvious deformity. No CVA tenderness. Procedures None. A/P Problem List: (1) Acute exacerbation of congestive heart failure ICD Code: I50.9 Status: Acute (2) Ischemic cardiomyopathy ICD Code: I25.5 Status: Acute (3) CAD (coronary artery disease) ICD Code: I25.10 Status: Chronic Assessment and Plan Mr. Hooker is a 65-year-old male with a history of coronary artery disease status post 4 stents, ischemic cardiomyopathy with ejection fraction 14-18% status post AICD placement who presents to the emergency department due to shortness of breath that started 2-3 months ago but much worse last night. After Lasix in the ED patient reports much improvement of his symptoms. - Acute exacerbation of congestive heart failuresystolic - BNP 1264 on admission. - Received furosemide 40 mg IV once. Also received Levaquin IV and aztreonam IV. - CT PE protocol is equivocal regarding pulmonary embolism. Radiologist recommends repeat CT PE protocol in 24 hours. - Discussed with patient at length. Patient is already on Warfarin. Repeat CT PE may not provide much benefit. - Patient opted not to undergo another CT PE study which I agree is a reasonable option. - Patient's blood pressure is on the lower side. Bumex 1mg PO Qday starting . - Patient reports leg cramps when he takes Torsemide. - Possible Community Acquired pneumonia - Patient received aztreonam and levofloxacin in the ED. - We'll continue Levaquin PO for 7 days. - Ischemic cardiomyopathy - LVEF reportedly 14-18%. 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 - AICD noted on CXR - Continue Aspirin, metoprolol 75mg Qday, Lisinopril 2.5mg Qday. - Atrial flutter. - EKG reviewed by me on 04/29/2016. - Currently on warfarin. INR 1.8 on admission. Repeat INR 2.1 on 04/28/2016. - Cardioversion planned for today 04/29/2016. Full code. Warfarin (Last INR 2.1). Will repeat INR in the AM. Problem Qualifiers (1) Acute exacerbation of congestive heart failure: Qualified Code: I50.23 - Acute on chronic systolic congestive heart failure Iris Damon DO Apr 29, 2016 17:16
--- NOTE | 2016-04-29 19:47 | HHI.PR ---
Subjective Remarks Tired Objective Vital Signs Date Time Temp Pulse Resp B/P Pulse Ox O2 Delivery O2 Flow Rate FiO2 04/29/16 15:47 97.3 66 16 102/65 97 04/29/16 12:23 97.3 66 16 100/57 97 04/29/16 08:05 96.5 65 16 103/66 99 04/29/16 04:11 98.4 72 20 98/58 94 04/28/16 22:56 98.1 69 20 100/58 97 I/O 04/28/16 04/28/16 04/28/16 04/29/16 04/29/16 04/29/16 07:00 15:00 23:00 07:00 15:00 23:00 Output Total 600 ml Balance -600 ml Output Urine Total 600 ml # Voids 1 Result Diagram: 04/29/16 0500 04/29/16 0500 Imaging Alert, fully oriented Lungs: ventilated Heart: S1, S2 irregular Abdomen: soft, no mass Ext: no edema Current Medications Medications (Trade) Dose Ordered Sig/Ami Route Start Time Stop Time Status Last Admin (NS Flush) 2 ml UNSCH PRN FLUSH 04/28/16 06:45 (NS Flush) 2 ml BID FLUSH 04/28/16 09:00 04/29/16 09:01 (Zofran Inj) 4 mg Q6H PRN IVP 04/28/16 06:45 04/28/16 19:46 (Dulcolax Supp) 10 mg DAILY PRN LA 04/28/16 06:45 (Tylenol) 650 mg Q6H PRN PO 04/28/16 06:45 ([place] 5-325 Mg) 1 tab Q4H PRN PO 04/28/16 06:45 04/28/16 11:49 (Morphine Inj) 2 mg Q3H PRN IV 04/28/16 06:45 (Aspirin Chew) 81 mg DAILY CHEW 04/29/16 09:00 04/29/16 09:01 (Prinivil) 2.5 mg DAILY PO 04/28/16 09:00 04/29/16 09:01 (Lopressor) 75 mg BID PO 04/28/16 09:00 04/29/16 09:01 (Coumadin) 5 mg DAILY@1600 PO 04/28/16 16:00 04/29/16 17:11 (Pill Splitter) 1 ea UNSCH PRN OTHER 04/28/16 07:30 (Levaquin) 500 mg DAILY PO 04/29/16 09:00 05/06/16 08:59 04/29/16 09:01 (Compazine Inj) 10 mg Q6H PRN IM 04/28/16 16:00 04/28/16 16:17 (Bumetanide) 1 mg DAILY PO 04/29/16 09:00 04/29/16 09:01 Assessment and Plan Problem List: (1) Atrial flutter Status: Acute Plan: SP cardioversion. Stable. Can be DH whenever is ok with the managing team (2) Congestive heart failure Status: Acute Plan: On optimal medical management. Follow up with the transplant team in [place] Problem Qualifiers (1) Atrial flutter: Qualified Code: I48.92 - Atrial flutter, unspecified type Joan Alicia MD Apr 29, 2016 19:47
[2016-04-30 00:08] VITALS: BP 104/58; PULSE 52; RESP 20; TEMP 97.2; O2SAT 93
[2016-04-30] MEDS: MORPHINE SULFATE 4 MG/ML INJ IV PRN ×3 (00:48→07:44)
--- NOTE | 2016-04-30 05:17 | MA ---
cc: SPARKLE LIRIANO M.D. DATE 04/29/2016 PROCEDURE Cardioversion. INDICATIONS Mr. Hooker is a 65-year-old gentleman with coronary artery disease, congestive heart failure, cardiomyopathy, dual defibrillators inserted, heart failure, on list for transplant, atrial flutter very symptomatic to undergo cardioversion. The risks, the nature and the benefit of the procedure are clearly stated to him. The risks include cardiac arrest, stroke, need for open heart surgery even . The patient understood and agreed to proceed. PROCEDURE After written informed consent was obtained, the patient was evaluated by the anesthesiologist. Once sedation verified, anterolateral pad was placed. A 200 sync biphasic joule was delivered that converted the patient into sinus rhythm. No incident reported. The patient tolerated the procedure. CONCLUSION Successful cardioversion. COMMENT AND RECOMMENDATION The patient will be kept in his room. He can be discharged home whenever it is okay with the managing team. Followup by the transplant team at [place]. MD CASSANDRA Sepulveda/CAROL /7:44 PM /5:03 AM
[2016-04-30 05:23] VITALS: BP 121/69; PULSE 69; RESP 20; TEMP 98.4; O2SAT 93
[2016-04-30 06:38] LABS: APTT (PATIENT) 34.7 SEC (24.3-30.1); INTERNATIONAL NORMALIZED RATIO 2.7 RATIO; PROTHROMBIN TIME - PATIENT 31.5 SEC (9.8-11.6)
[2016-04-30 07:12] VITALS: BP 117/77; PULSE 72; RESP 18; TEMP 97.8; O2SAT 97
[2016-04-30 07:49] VITALS: RESP 14
[2016-04-30 08:57] VITALS: PULSE 77
[2016-04-30] MEDS: SODIUM CHLORIDE 0.9% FLUSH 5 ML FLUSH FLUSH SCH (09:00)
[2016-04-30] MEDS: METOPROLOL TARTRATE 25 MG TAB PO SCH (09:43)
[2016-04-30] MEDS: ASPIRIN 81 MG CHEW TAB CHEW SCH (09:43)
[2016-04-30] MEDS: LISINOPRIL 5 MG TAB PO SCH (09:43)
[2016-04-30] MEDS: BUMETANIDE 1 MG TAB PO SCH (09:44)
[2016-04-30] MEDS: LEVOFLOXACIN 500 MG TAB PO SCH (09:44)
[2016-04-30] MEDS ORDERED: BUME1TAB PO (10:31)
--- NOTE | 2016-04-30 10:32 | HHI.PR ---
Objective Vitals Vital Signs Date Time Temp Pulse Resp B/P Pulse Ox O2 Delivery O2 Flow Rate FiO2 04/30/16 08:57 77 04/30/16 07:49 14 04/30/16 07:12 97.8 72 18 117/77 97 04/30/16 05:23 98.4 69 20 121/69 93 04/30/16 00:08 97.2 52 20 104/58 93 04/29/16 21:39 94/60 04/29/16 21:21 97.4 56 20 94 04/29/16 20:25 102/74 04/29/16 20:24 70 04/29/16 15:47 97.3 66 16 102/65 97 04/29/16 12:23 97.3 66 16 100/57 97 Result Diagram: 04/29/16 0500 04/29/16 0500 Objective Remarks GENERAL: AOX3, NAD. SKIN: Warm and dry. HEAD: Normocephalic. EYES: No scleral icterus. No injection or drainage. NECK: Supple, trachea midline. No JVD or lymphadenopathy. CARDIOVASCULAR: Regular rate and rhythm without murmurs, gallops, or rubs. RESPIRATORY: Breath sounds equal bilaterally. No accessory muscle use. GASTROINTESTINAL: Abdomen soft, non-tender, nondistended. MUSCULOSKELETAL: No cyanosis, or edema. BACK: Nontender without obvious deformity. No CVA tenderness. Procedures None. A/P Problem List: (1) Acute exacerbation of congestive heart failure ICD Code: I50.9 Status: Acute (2) Ischemic cardiomyopathy ICD Code: I25.5 Status: Acute (3) CAD (coronary artery disease) ICD Code: I25.10 Status: Chronic Assessment and Plan Mr. Hooker is a 65-year-old male with a history of coronary artery disease status post 4 stents, ischemic cardiomyopathy with ejection fraction 14-18% status post AICD placement who presents to the emergency department due to shortness of breath that started 2-3 months ago but much worse last night. After Lasix in the ED patient reports much improvement of his symptoms. - Acute exacerbation of congestive heart failuresystolic - BNP 1264 on admission. - Received furosemide 40 mg IV once. Also received Levaquin IV and aztreonam IV. - CT PE protocol is equivocal regarding pulmonary embolism. Radiologist recommends repeat CT PE protocol in 24 hours. - Discussed with patient at length. Patient is already on Warfarin. Repeat CT PE may not provide much benefit. - Patient opted not to undergo another CT PE study which I agree is a reasonable option. - Patient's blood pressure is on the lower side. Bumex 1mg PO Qday starting . - Patient reports leg cramps when he takes Torsemide. - Possible Community Acquired pneumonia - Patient received aztreonam and levofloxacin in the ED. - We'll continue Levaquin PO for 7 days. - Ischemic cardiomyopathy - LVEF reportedly 14-18%. - Followed by [facility] in [place] as well as [facility]. - AICD noted on CXR - Continue Aspirin, metoprolol 75mg Qday, Lisinopril 2.5mg Qday. - Atrial flutter. - EKG reviewed by me on 04/29/2016. - Currently on warfarin. INR 1.8 on admission. Repeat INR 2.1 on 04/28/2016. - Cardioversion planned for today 04/29/2016. Full code. Warfarin (Last INR 2.1). Will repeat INR in the AM. Problem Qualifiers (1) Acute exacerbation of congestive heart failure: Qualified Code: I50.23 - Acute on chronic systolic congestive heart failure Iris Damon DO Apr 30, 2016 10:32
--- NOTE | 2016-04-30 19:24 | HHI.DS ---
Discharge Summary Admission Date Apr 28, 2016 at 06:33 Discharge Date: Apr 30, 2016 Admitting Diagnosis CHF exacerbation (1) Acute exacerbation of congestive heart failure ICD Code: I50.9 Diagnosis: Principal (2) Ischemic cardiomyopathy ICD Code: I25.5 (3) CAD (coronary artery disease) ICD Code: I25.10 (4) Atrial flutter ICD Code: I48.92 Diagnosis: Principal Procedures None. Brief History - From Admission Mr. Hooker is a pleasant 65-year-old male with a history of coronary artery disease status post 4 stents, congestive heart failure with LVEF 14-18% who presents to the emergency department today due to worsening shortness of breath over the last 2-3 months. On the day of admission, his shortness of breath became very severe within small movement and subsequently called ambulance service. Per patient he is currently on a transplant list. His last cardiac catheterization with stent placements was done in October 2015 in [place]. At the time of this interview patient reports much improvement of his symptoms after Lasix in the emergency department. He denies any chest pain, shortness of breath, fever or chills. Denies any changes in bowel or bladder habits. He has seen Dr. Alicia before. CBC/BMP: 04/29/16 0500 04/29/16 0500 Significant Findings Laboratory Tests Test 04/28/16 04/28/16 04/28/16 04/28/16 04:45 09:26 16:35 20:59 Eosinophils (%) (Auto) 8.3 % (0.0-4.0) Eosinophils # (Auto) 0.6 TH/MM3 (0-0.4) Prothrombin Time 20.7 SEC 23.8 SEC (9.8-11.6) (9.8-11.6) Activated Partial 32.2 SEC 39.7 SEC 57.4 SEC 58.4 SEC Thromboplast Time (24.3-30.1) (24.3-30.1) (24.3-30.1) (24.3-30.1) D-Dimer Quantitative (PE/DVT) 1.94 MG/L FEU (0.00-0.50) Blood Urea Nitrogen 20 MG/DL (7-18) Estimat Glomerular Filtration 76 ML/MIN (>89) Rate Aspartate Amino Transf 139 U/L (15-37) (AST/SGOT) Alanine Aminotransferase 139 U/L (12-78) (ALT/SGPT) Alkaline Phosphatase 157 U/L (45-117) B-Type Natriuretic Peptide 1264 PG/ML (0-100) Albumin 3.1 GM/DL (3.4-5.0) Lipase 66 U/L (73-393) Test 04/29/16 04/29/16 04/30/16 05:00 10:03 05:45 Monocytes (%) (Auto) 10.3 % (0.0-8.0) Eosinophils (%) (Auto) 9.4 % (0.0-4.0) Eosinophils # (Auto) 0.7 TH/MM3 (0-0.4) Blood Urea Nitrogen 19 MG/DL (7-18) Estimat Glomerular Filtration 65 ML/MIN (>89) Rate Aspartate Amino Transf 46 U/L (15-37) (AST/SGOT) Alanine Aminotransferase 94 U/L (12-78) (ALT/SGPT) Alkaline Phosphatase 121 U/L (45-117) Albumin 2.7 GM/DL (3.4-5.0) Activated Partial 53.4 SEC 34.7 SEC Thromboplast Time (24.3-30.1) (24.3-30.1) Prothrombin Time 31.5 SEC (9.8-11.6) Imaging Last Impressions CT Angiography 04/28/16 0555 Signed Impressions: Service Date/Time: Thursday, April 28, 2016 05:52 - CONCLUSION: 1. Filling defects within right lower lobe branches could be related to small pulmonary emboli versus unopacified blood. Repeat study in 24 hours may be warranted. 2. Cardiomegaly and coronary artery stents. 3. Minimal right basilar density, could be atelectasis or minimal infiltrate. Trever Hinojosa MD Chest X-Ray 04/28/16 1507 Signed Impressions: Service Date/Time: Thursday, April 28, 2016 04:38 - CONCLUSION: 1. Bibasilar density could be atelectasis or pneumonia. 2. Cardiomegaly. Trever Hinojosa MD PE at Discharge GENERAL: AOX3, NAD. SKIN: Warm and dry. HEAD: Normocephalic. EYES: No scleral icterus. No injection or drainage. NECK: Supple, trachea midline. No JVD or lymphadenopathy. CARDIOVASCULAR: Regular rate and rhythm without murmurs, gallops, or rubs. RESPIRATORY: Breath sounds equal bilaterally. No accessory muscle use. GASTROINTESTINAL: Abdomen soft, non-tender, nondistended. MUSCULOSKELETAL: No cyanosis, or edema. BACK: Nontender without obvious deformity. No CVA tenderness. Pt update on day of discharge Mr. Hooker is doing well. No acute concerns. He underwent cardioversion on 01/2017. No CP, SOB, fever, chills. Hospital Course Mr. Hooker is a 65-year-old male with a history of coronary artery disease status post 4 stents, ischemic cardiomyopathy with ejection fraction 14-18% status post AICD placement who presents to the emergency department due to shortness of breath that started 2-3 months ago but much worse last night. After Lasix in the ED patient reports much improvement of his symptoms. - Acute exacerbation of congestive heart failuresystolic - BNP 1264 on admission. - Received furosemide 40 mg IV once. Also received Levaquin IV and aztreonam IV. - CT PE protocol is equivocal regarding pulmonary embolism. Radiologist recommends repeat CT PE protocol in 24 hours. - Discussed with patient at length. Patient is already on Warfarin. Repeat CT PE may not provide much benefit. - Patient opted not to undergo another CT PE study which I agree is a reasonable option. - Patient's blood pressure is on the lower side. Bumex 1mg PO Qday starting . - Patient reports leg cramps when he takes Torsemide. - Possible Community Acquired pneumonia - Patient received aztreonam and levofloxacin in the ED. - No sign of infection - no fever, chills, cough. No leukocytosis. - Will not continue any abx on discharge. - Ischemic cardiomyopathy - LVEF reportedly 14-18%. 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 - AICD noted on CXR - Continue Aspirin, metoprolol 75mg Qday, Lisinopril 2.5mg Qday. - Atrial flutter. - EKG reviewed by me on 04/29/2016. - Currently on warfarin. INR 1.8 on admission. Repeat INR 2.1 on 04/28/2016. - Cardioversion performed 04/29/2016. - Patient will follow up with [facility] regarding ablation and possible heart transplant. Full code. Warfarin - INR 2.7. Pt Condition on Discharge: Good Discharge Disposition: Discharge Home Discharge Time: <= 30 minutes Discharge Instructions DIET: Follow Instructions for: Heart Healthy Diet Activities you can perform: Regular-No Restrictions Follow up Referrals: PCP Follow-up - 1 Week New Medications: Bumetanide (Bumetanide) 1 Mg Tab 1 MG PO DAILY CHF #30 TAB Continued Medications: Aspirin (Aspirin) 81 Mg Chew 81 MG CHEW DAILY Ref 0 TAB Lisinopril (Lisinopril) 2.5 Mg Tab 2.5 MG PO DAILY #30 Ref 0 TAB Metoprolol Tartrate (Metoprolol Tartrate) 75 Mg Tab 75 MG PO BID #60 Ref 0 TAB Warfarin (Coumadin) 5 Mg Tab 5 MG PO DAILY Blood Clot Prevention #30 Ref 0 TAB Discontinued Medications: Torsemide (Torsemide) 10 Mg Tab 10 MG PO DAILY PRN DYSPEPSIA #30 Ref 0 TAB Iris Damon DO Apr 30, 2016 19:24
== END 2016-04-30 11:31 | disposition home or self-care (01) ==
LOC: NEPE 04:21 → NEDA 06:33 → NEPHCDU 09:06
PROVIDERS: ADMIT Hospitalist; ATTEND Hospitalist
DX: I50.23 Acute on chronic systolic (congestive) heart failure (principal); I25.5 Ischemic cardiomyopathy; I25.10 Atherosclerotic heart disease of native coronary artery without angina pectoris; I48.92 Unspecified atrial flutter; I48.91 Unspecified atrial fibrillation; I10 Essential (primary) hypertension; I25.2 Old myocardial infarction; E78.5 Hyperlipidemia, unspecified; K21.9 Gastro-esophageal reflux disease without esophagitis; Z76.82 Awaiting organ transplant status; Z87.01 Personal history of pneumonia (recurrent); Z95.0 Presence of cardiac pacemaker; Z95.5 Presence of coronary angioplasty implant and graft; Z23 Encounter for immunization; Z79.01 Long term (current) use of anticoagulants
CPT/HCPCS: 71010; 71275; 80053; 82550; 83605; 83690; 83735; 83880; 84484; 85025; 85027; 85379; 85610; 85730; 87040; 90732; 93005; 99285; G0378; J0780; J1644; J1940; J1956; J2270; J2405; Q2038; Q9967; 90471; 90472; 90686; G0008; G0009

== ENCOUNTER 2016-09-24 11:16 | Observation (INO) | payer MEDICARE ==
[~2016-09-24] VITALS: Ht 172.7 cm; Wt 70.0 kg
[2016-09-24] VITALS (9 sets, daily range): BP systolic 104–138; BP diastolic 55–91; PULSE 56–88; RESP 16–19; TEMP 98.1–98.5; O2SAT 93–96
[~2016-09-24 11:16] MED LIST changes: -ASPI81 PO; +ASPI81CH CHEW; +BUME1TAB PO; -CIAL5TAB PO; -CLOP75TA PO; +COUM5TAB PO; +METO-426 PO; -METO50TA11 PO; -NEXI40CA PO; -NITR.4 SL; -OXYC20TA; -PRAV20 PO; -PROT40TA PO; -SPIR25TA PO
[2016-09-24] MEDS ORDERED: SODIUM CHLORIDE 0.9% FLUSH 10 ML FLUSH IVF PRN (11:30)
[2016-09-24 11:52] LABS: AUTOMATED NEUTROPHIL # 6.7 TH/MM3 (1.8-7.7); BASOPHIL # 0.1 TH/MM3 (0-0.2); BASOPHIL % 0.9 % (0.0-2.0); EOSINOPHIL # 0.3 TH/MM3 (0-0.4); EOSINOPHIL % 3.4 % (0.0-4.0); HEMATOCRIT 47.5 % (39.0-51.0); HEMO FLAGS DIFF FINAL; LYMPH % 11.9 % (9.0-44.0); LYMPHOCYTE # 1.1 TH/MM3 (1.0-4.8); MEAN CELL VOLUME 88.8 FL (80.0-100.0); MEAN CORPUSCULAR HEMOGLOBIN 30.2 PG (27.0-34.0); MONO % 10.3 % (0.0-8.0); NEUT % 73.5 % (16.0-70.0); PLATELET COUNT 183 TH/MM3 (150-450); RED BLOOD COUNT 5.35 MIL/MM3 (4.50-5.90); RED CELL DISTRIBUTION WIDTH 16.2 % (11.6-17.2); WHITE BLOOD COUNT 9.1 TH/MM3 (4.0-11.0)
[2016-09-24 12:02] LABS: APTT (PATIENT) 32.4 SEC (24.3-30.1); INTERNATIONAL NORMALIZED RATIO 2.1 RATIO; PROTHROMBIN TIME - PATIENT 23.6 SEC (9.8-11.6)
--- NOTE | 2016-09-24 12:02 | RADRPT ---
EXAM DATE/TIME: 09/24/2016 11:31 [place] COMPARISON: CT PULMONARY ANGIOGRAM, April 28, 2016, 5:52. CHEST SINGLE AP, April 28, 2016, 4:38. INDICATIONS : Chest pain. MEDICAL HISTORY : Myocardial infarction. Hypertension SURGICAL HISTORY : Pacemaker. Coronary artery stent. ENCOUNTER: Initial ACUITY: 1 day PAIN SCORE: 10/10 LOCATION: Left upper chest FINDINGS: Single lead left-sided AICD device in stable position. No significant focal pleural or parenchymal op acities. Stable enlargement of the cardiac silhouette. Minimal mediastinal prominence likely due to t he portable technique. Bony thorax is intact. CONCLUSION: 1. Cardiomegaly without evidence for failure. 2. No acute abnormality. Karl Robbins MD on September 24, 2016 at 11:57 Board Certified Radiologist. This report was verified electronically.
[2016-09-24 12:09] LABS: ALT (GPT) 21 U/L (12-78); ANION GAP 8 MEQ/L (5-15); AST (GOT) 16 U/L (15-37); BICARBONATE 28.3 MEQ/L (21.0-32.0); BLOOD UREA NITROGEN 23 MG/DL (7-18); CHLORIDE 105 MEQ/L (98-107); GLOMERULAR FILTRATION RATE 65 ML/MIN (>89); MAGNESIUM 2.2 MG/DL (1.5-2.5); POTASSIUM 4.2 MEQ/L (3.5-5.1); SODIUM (NA) 141 MEQ/L (136-145)
[2016-09-24 12:13] LABS: ALKALINE PHOSPHATASE 81 U/L (45-117); TOTAL BILIRUBIN ADULT 0.4 MG/DL (0.2-1.0)
[2016-09-24 12:16] LABS: CREATINE KINASE 49 U/L (39-308)
--- NOTE | 2016-09-24 12:57 | PD ---
HPI Chief Complaint: Chest Pain Time Seen by Provider: 11:21 Travel History International Travel<30 days: No Contact w/Intl Traveler<30days: No Traveled to known affect area: No History of Present Illness HPI 65-year-old male with history of previous OR, defibrillator, hypertension, presents to the ER today brought in by EMS because he states he has been dizzy for several days, and this morning he felt like he was going to pass out and his defibrillator fired. He reports no chest pains, shortness of breath, or any other symptoms. On initial evaluation by EMS, they noted that he had ST elevations in the V1 and V2 and V3 leads and they're concerned of an ST elevation OR and ST elevation OR was called in the field. Modifying Factors: None Associated Signs & Symptoms: Defibrillator firing, possible ST elevation OR Risk Factors: Previous OR, defibrillator PFSH Past Medical History Hx Anticoagulant Therapy: Yes Heart Rhythm Problems: No (PATIENT STATES HE DOES NOT HAVE ANY CARDIAC RHYTHM ISSUES DESPITE PACER) Cancer: No Cardiac Catheterization: Yes (4 STENTS) Cardiovascular Problems: Yes (OR, DEFIBULATOR, AND PACEMAKER ) High Cholesterol: No Chest Pain: No Congestive Heart Failure: No Diminished Hearing: No Diverticulitis: Yes Endocrine: No Gastrointestinal Disorders: Yes (ULCERATIVE CHOLITIS, ESOPHAGEAL REFLUX) GERD: Yes Genitourinary: No Hiatal Hernia: Yes (REPAIRED 25 YRS AGO) Hypertension: Yes Immune Disorder: No Implanted Vascular Access Dvce: Yes Musculoskeletal: No Neurologic: No Psychiatric: No Reproductive: No Respiratory: Yes Myocardial Infarction: Yes Ulcer: Yes Tetanus Vaccination: Unknown Past Surgical History Abdominal Surgery: Yes (HERNIA REPAIR X2) AICD: Yes (2007 metronic defib placed on r; defib on l removed) Appendectomy: Yes Cardiac Surgery: Yes (PACEMAKER) Cholecystectomy: Yes Coronary Stent: Yes Ear Surgery: No Endocrine Surgery: No Eye Surgery: Yes (2007) Genitourinary Surgery: No Neurologic Surgery: Yes (BACK) Oral Surgery: Yes (TONSILS REMOVED) Pacemaker: Yes Thoracic Surgery: No Tonsillectomy: Yes (1966) Other Surgery: Yes (SINUS KIMBERLY; 10" bowel removed 1986; hernia 2007) Social History Alcohol Use: Yes (BEER A DAY) Tobacco Use: No Substance Use: No Allergies-Medications (Allergen,Severity, Reaction): Coded Allergies: Clindamycin (Verified Allergy, Severe, RASH, FEVER, 09/24/16) Penicillin (Verified Allergy, Severe, RASH, 09/24/16) STATES HES NOT ALLERGIC ANY MORE Remicade (Verified Allergy, Severe, FEVER, RASH, 09/24/16) Reported Meds & Prescriptions Reported Meds & Active Scripts Active Bumetanide 1 Mg Tab 1 Mg PO DAILY Reported Coumadin (Warfarin) 5 Mg Tab 5 Mg PO DAILY Lisinopril 2.5 Mg Tab 2.5 Mg PO DAILY Metoprolol Tartrate 75 Mg Tab 75 Mg PO BID Aspirin 81 Mg Chew 81 Mg CHEW DAILY Review of Systems Except as stated in HPI: all other systems reviewed are Neg Physical Exam Narrative GENERAL: Well-developed elderly white male patient currently in mild distress. Awake and oriented 3. SKIN: Focused skin assessment warm/dry. HEAD: Atraumatic. Normocephalic. EYES: Pupils equal and round. No scleral icterus. No injection or drainage. ENT: No nasal bleeding or discharge. Mucous membranes pink and moist. NECK: Trachea midline. No JVD. CARDIOVASCULAR: Regular rate and rhythm. No murmur appreciated. Pulses are present and equal bilaterally. RESPIRATORY: No accessory muscle use. Clear to auscultation. Breath sounds equal bilaterally. GASTROINTESTINAL: Abdomen soft, non-tender, nondistended. Hepatic and splenic margins not palpable. MUSCULOSKELETAL: No obvious deformities. No clubbing. No cyanosis. No edema. NEUROLOGICAL: Awake and alert. No obvious cranial nerve deficits. Motor grossly within normal limits. Normal speech. PSYCHIATRIC: Appropriate mood and affect; insight and judgment normal. Data Data Last Documented VS Vital Signs Date Time Temp Pulse Resp B/P Pulse Ox O2 Delivery O2 Flow Rate FiO2 09/24/16 11:54 96 Nasal Cannula 2.00 09/24/16 11:36 88 127/79 09/24/16 11:27 16 09/24/16 11:22 98.5 09/24/16 11:22 21 Orders Electrocardiogram (09/24/16 11:27) Ckmb (Isoenzyme) Profile (09/24/16 11:27) Complete Blood Count With Diff (09/24/16 11:27) Comprehensive Metabolic Panel (09/24/16 11:27) Magnesium (Mg) (09/24/16 11:27) Prothrombin Time / Inr (Pt) (09/24/16 11:27) Act Partial Throm Time (Ptt) (09/24/16 11:27) Troponin I (09/24/16 11:27) Chest, Single Ap (09/24/16 11:27) Ecg Monitoring (09/24/16 11:27) Bilateral Bp Monitoring (09/24/16 11:27) Iv Access Insert/Monitor (09/24/16 11:27) Oximetry (09/24/16 11:27) Oxygen Administration (09/24/16 11:27) Sodium Chloride 0.9% Flush (Ns Flush) (09/24/16 11:30) Admit Order (Ed Use Only) (09/24/16 12:49) Consult Cardiology (09/24/16 ) Labs Laboratory Tests Test 09/24/16 11:34 White Blood Count 9.1 TH/MM3 Red Blood Count 5.35 MIL/MM3 Hemoglobin 16.1 GM/DL Hematocrit 47.5 % Mean Corpuscular Volume 88.8 FL Mean Corpuscular Hemoglobin 30.2 PG Mean Corpuscular Hemoglobin 34.0 % Concent Red Cell Distribution Width 16.2 % Platelet Count 183 TH/MM3 Mean Platelet Volume 9.1 FL Neutrophils (%) (Auto) 73.5 % Lymphocytes (%) (Auto) 11.9 % Monocytes (%) (Auto) 10.3 % Eosinophils (%) (Auto) 3.4 % Basophils (%) (Auto) 0.9 % Neutrophils # (Auto) 6.7 TH/MM3 Lymphocytes # (Auto) 1.1 TH/MM3 Monocytes # (Auto) 0.9 TH/MM3 Eosinophils # (Auto) 0.3 TH/MM3 Basophils # (Auto) 0.1 TH/MM3 CBC Comment DIFF FINAL Differential Comment Prothrombin Time 23.6 SEC Prothromb Time International 2.1 RATIO Ratio Activated Partial 32.4 SEC Thromboplast Time Sodium Level 141 MEQ/L Potassium Level 4.2 MEQ/L Chloride Level 105 MEQ/L Carbon Dioxide Level 28.3 MEQ/L Anion Gap 8 MEQ/L Blood Urea Nitrogen 23 MG/DL Creatinine 1.12 MG/DL Estimat Glomerular Filtration 65 ML/MIN Rate Random Glucose 102 MG/DL Calcium Level 9.0 MG/DL Magnesium Level 2.2 MG/DL Total Bilirubin 0.4 MG/DL Aspartate Amino Transf 16 U/L (AST/SGOT) Alanine Aminotransferase 21 U/L (ALT/SGPT) Alkaline Phosphatase 81 U/L Total Creatine Kinase 49 U/L Troponin I 0.03 NG/ML Total Protein 7.1 GM/DL Albumin 3.5 GM/DL MDM Medical Decision Making Medical Screen Exam Complete: Yes Emergency Medical Condition: Yes Medical Record Reviewed: Yes Interpretation(s) Initial EKG shows questionable ST elevations in V2 and V3 otherwise did not see any significant ST depressions. When compared to previous EKG in 2013, the STs segments do not look significantly changed. Laboratory Tests Test 09/24/16 11:34 Neutrophils (%) (Auto) 73.5 % (16.0-70.0) Monocytes (%) (Auto) 10.3 % (0.0-8.0) Prothrombin Time 23.6 SEC (9.8-11.6) Activated Partial 32.4 SEC Thromboplast Time (24.3-30.1) Blood Urea Nitrogen 23 MG/DL (7-18) Estimat Glomerular Filtration 65 ML/MIN (>89) Rate Last 24 hours Impressions Chest X-Ray 09/24/16 1127 Signed Impressions: Service Date/Time: Saturday, September 24, 2016 11:31 - CONCLUSION: 1. Cardiomegaly without evidence for failure. 2. No acute abnormality. Karl Robbins MD Differential Diagnosis ST elevation OR versus dysrhythmias versus metabolic issues versus pericarditis Narrative Course Case was initially discussed with Dr. Kearney who saw the EKGs and agrees that he has not impressed for an ST elevation OR. At this point, he has recommended that we get further pacemaker and defibrillator interrogations and admission. Case was admitted to [facility] practice resident service. Lab work returned not showing any significant cardiac enzyme elevation or significant metabolic issues. Diagnosis Primary Impression: Syncope Additional Impression: Defibrillator discharge Admitting Information Admitting Physician Requests: Admit Sorin Crooks MD Sep 24, 2016 12:57
[2016-09-24] MEDS ORDERED: DOCUSATE SODIUM 50 MG/SENNA 8.6 MG TAB PO PRN (14:15)
[2016-09-24] MEDS ORDERED: NALOXONE HCL 0.4 MG/ML AMP IV PRN (14:15)
[2016-09-24] MEDS ORDERED: ONDANSETRON HCL 4 MG/2 ML VIAL IVP PRN (14:15)
[2016-09-24] MEDS ORDERED: SODIUM CHLORIDE 0.9% FLUSH 10 ML FLUSH IV FLUSH PRN (14:15)
[2016-09-24] MEDS ORDERED: WARF-18 PO (15:21)
[2016-09-24] MEDS ORDERED: SPIR25TA PO (15:22)
--- NOTE | 2016-09-24 16:36 | HHI.HP ---
[facility] Service Family Medicine Primary Care Physician Unknown Admission Diagnosis tachycardia dysrhythmia/defibrillator fired Diagnoses: International Travel<30 Days: No Contact w/Intl Traveler<30days: No Known Affected Area: No History of Present Illness 65 year old male with a history of prior OK, defibrillator/pacemaker, severe cardiomyopathy with poor ejection fraction, presents after defibrillator fired. It occurred this morning at about 10:30 AM. He was sitting on the couch. He leaned forward and felt lightheaded and faint. At that time the defibrillator went off. He did not lose consciousness. He has no chest pain or shortness of breath. He has diarrhea and crampy abdominal pain with nausea, but no vomiting, for the past 4 weeks. He has a history of chronic colitis. He is having one to two soft to liquid stools a day. No blood in stools noted. He was recently on amoxicillin and Z-pack for a respiratory infection back in July. He has been getting lightheaded over the past few weeks with standing. He has not lost consciousness during any of these events. He notes that his defibrillator has fired about 5 times over the past 5 years. The defibrillator was reviewed and was noted to have discharged for a heart rate in the low 200's. ST elevations were noted on the EKG by EMS in V1, V2, V3. Case was initially discussed with Dr. Kearney who saw the EKGs and agrees that he has not impressed for an ST elevation OK. Initial troponin negative, subsequent cardiac enzymes and EKG's are pending. He sometimes feels his heart pounding, but this is a chronic issue for him. He gets mild dyspnea when walking to the mailbox. No lower extremity edema. Review of Systems Constitutional: COMPLAINS OF: Change in appetite, DENIES: Diaphoretic episodes , Fever Endocrine: DENIES: Polydipsia, Polyuria Eyes: DENIES: Diplopia, Eye inflammation, Double Vision Ears, nose, mouth, throat: DENIES: Oral lesions, Running Nose, Sinus Pain Respiratory: DENIES: Cough, Sputum production, Shortness of breath Cardiovascular: COMPLAINS OF: Palpitations, DENIES: Chest pain, Syncope, Lower Extremity Edema Gastrointestinal: COMPLAINS OF: Abdominal pain, Diarrhea, Nausea, DENIES: Black stools, Bloody stools, Constipation, Vomiting Genitourinary: DENIES: Dysuria Integumentary: DENIES: Rash Hematologic/lymphatic: DENIES: Lymphadenopathy Neurologic: DENIES: Headache, Seizures, Poor Balance Psychiatric: DENIES: Anxiety, Confusion, Mood changes Past Family Social History Past Medical History OK 12 years ago On list for heart transplant Had 4 coronary artery stents Defibrillator/pacemaker dependent Historiography Professor is Dr. Alicia Has mild Crohn's disease GI doctor is Dr. Baldwin Had Atrial flutter that was electrically cardioverted 18% EF one year ago Past Surgical History Stents X4 Pacemaker/defibrillator Hemangioma removed Tonsillectomy rotator cuff surgery bilateral Aneurysm of leg - bypass Colectomy for diverticulitis 3 hernia repairs: abdominal Sinus surgery Reported Medications Reported Meds & Active Scripts Active Reported Spironolactone 25 Mg Tab 12.5 Mg PO DAILY Warfarin 2.5 Mg Tab 2.5 Mg PO EVERY OTHER DAY Coumadin (Warfarin) 5 Mg Tab 5 Mg PO DAILY Lisinopril 2.5 Mg Tab 2.5 Mg PO DAILY Metoprolol Tartrate 75 Mg Tab 75 Mg PO BID Aspirin 81 Mg Chew 81 Mg CHEW DAILY Allergies: Coded Allergies: Clindamycin (Verified Allergy, Severe, RASH, FEVER, 09/24/16) Penicillin (Verified Allergy, Severe, RASH, 09/24/16) STATES HES NOT ALLERGIC ANY MORE Remicade (Verified Allergy, Severe, FEVER, RASH, 09/24/16) Active Ordered Medications Inpatient Medications Acetaminophen (Tylenol) 650 mg Q4H PRN PO TEMP > 100.4; Start 09/24/16 at 14:15 Aspirin (Aspirin Chew) 81 mg DAILY CHEW ; Start 09/25/16 at 09:00 Bumetanide (Bumetanide) 1 mg DAILY PO ; Start 09/25/16 at 09:00 Lisinopril (Prinivil) 2.5 mg DAILY PO ; Start 09/25/16 at 09:00 Metoprolol Tartrate (Lopressor) 75 mg BID PO ; Start 09/24/16 at 21:00 Naloxone HCl (Narcan Inj) 0.4 mg UNSCH PRN IV SEE LABEL COMMENTS; Start at 14:15 Ondansetron HCl (Zofran Inj) 4 mg Q6H PRN IVP NAUSEA OR VOMITING; Start at 14:15 Senna/Docusate Sodium (Radha-Colace) 1 tab BID PRN PO CONSTIPATION; Start at 14:15 Sodium Chloride (NS Flush) 2 ml BID IV FLUSH ; Start 09/24/16 at 21:00 Warfarin Sodium (Coumadin) 5 mg DAILY PO ; Start 09/25/16 at 09:00 Family History Mom: stroke age 69 Father age 84 Sisters: GI problems Social History Smoked for 18 years, PPD Quit at age 40 Rare alcohol use No drug use Lives with Retired Physical Exam Vital Signs Vital Signs Date Time Temp Pulse Resp B/P Pulse Ox O2 Delivery O2 Flow Rate FiO2 09/24/16 11:54 96 Nasal Cannula 2.00 09/24/16 11:36 88 127/79 09/24/16 11:33 97 Nasal Cannula 2 09/24/16 11:27 80 16 95 Room Air 09/24/16 11:22 98.5 80 18 138/91 96 09/24/16 11:22 95 21 Physical Exam GENERAL: Lying in bed, no distress, comfortable SKIN: No rashes, ecchymoses or lesions. HEAD: Atraumatic. Normocephalic. No temporal or scalp tenderness. EYES: Pupils equal round and reactive. Extraocular motions intact. No scleral icterus. No injection or drainage. ENT: Nose without bleeding, purulent drainage or septal hematoma. Throat without erythema, tonsillar hypertrophy or exudate. Uvula midline. Airway patent. NECK: Trachea midline. No JVD or lymphadenopathy. Supple, nontender, no meningeal signs. CARDIOVASCULAR: Regular rate and rhythm without murmurs, gallops, or rubs. Defibrillator palpable on right chest. RESPIRATORY: Clear to auscultation. Breath sounds equal bilaterally. No wheezes , rales, or rhonchi. GASTROINTESTINAL: Abdomen soft, non-tender, nondistended. No hepato-splenomegaly , or palpable masses. No guarding. Normal bowel sounds. MUSCULOSKELETAL: Extremities without clubbing, cyanosis, or edema. No joint tenderness, effusion, or edema noted. No calf tenderness. Negative Homans sign bilaterally. NEUROLOGICAL: Awake and alert. Cranial nerves II through XII intact. Motor and sensory grossly within normal limits. Five out of 5 muscle strength in all muscle groups. Normal speech. Laboratory Laboratory Tests Test 09/24/16 11:34 White Blood Count 9.1 Red Blood Count 5.35 Hemoglobin 16.1 Hematocrit 47.5 Mean Corpuscular Volume 88.8 Mean Corpuscular Hemoglobin 30.2 Mean Corpuscular Hemoglobin 34.0 Concent Red Cell Distribution Width 16.2 Platelet Count 183 Mean Platelet Volume 9.1 Neutrophils (%) (Auto) 73.5 Lymphocytes (%) (Auto) 11.9 Monocytes (%) (Auto) 10.3 Eosinophils (%) (Auto) 3.4 Basophils (%) (Auto) 0.9 Neutrophils # (Auto) 6.7 Lymphocytes # (Auto) 1.1 Monocytes # (Auto) 0.9 Eosinophils # (Auto) 0.3 Basophils # (Auto) 0.1 CBC Comment DIFF FINAL Differential Comment Prothrombin Time 23.6 Prothromb Time International 2.1 Ratio Activated Partial 32.4 Thromboplast Time Sodium Level 141 Potassium Level 4.2 Chloride Level 105 Carbon Dioxide Level 28.3 Anion Gap 8 Blood Urea Nitrogen 23 Creatinine 1.12 Estimat Glomerular Filtration 65 Rate Random Glucose 102 Calcium Level 9.0 Magnesium Level 2.2 Total Bilirubin 0.4 Aspartate Amino Transf 16 (AST/SGOT) Alanine Aminotransferase 21 (ALT/SGPT) Alkaline Phosphatase 81 Total Creatine Kinase 49 Troponin I 0.03 Total Protein 7.1 Albumin 3.5 Result Diagram: 09/24/16 1134 09/24/16 1134 Imaging Last 72 hours Impressions Chest X-Ray 09/24/16 1127 Signed Impressions: Service Date/Time: Saturday, September 24, 2016 11:31 - CONCLUSION: 1. Cardiomegaly without evidence for failure. 2. No acute abnormality. Karl Robbins MD Septic Shock Reassessment Heart: Regular rate and rhythm Lungs: Clear Skin: Warm Capillary Refill: <2 seconds Assessment and Plan Assessment and Plan 65 year old male with defibrillator discharge after pulse in the low 200's, feelings of lightheadedness with standing, crampy abdominal pain, nausea, and diarrhea Code Status FULL CODE Discussed Condition With Seen and discussed with Dr. Muhammad, Dr. Cornelius Problem List: (1) Defibrillator discharge Status: Acute Plan: Defibrillator discharge after rate in the low 200's. EKG showing ST elevations in V1, V2, V3, V4. No chest pain or shortness of breath. EKG reviewed with assistant department manager, no immediate intervention indicated at this time per the assistant department manager. Similar to EKG in 2014. - Continuous cardiac monitoring. - Trend cardiac enzymes and EKG's. - Cardiology on board - Fall precautions - Orthostatic vital signs (2) Lightheadedness Status: Acute Plan: Lightheadedness especially with standing. No loss of consciousness. Most recent episode of lightheadedness occurred with defibrillator discharge. - Continuous cardiac monitoring. - Echocardiogram - Cardiology consulted (3) Ischemic cardiomyopathy Status: Acute Plan: History of ischemic cardiomyopathy with 18% ejection fraction. No evidence of acute CHF exacerbation. History of OK with 4 stents. - Continue Lisinopril 2.5 mg daily - Continue metoprolol 75 mg bid - Continue Bumex 1 mg daily - Continue daily aspirin 81 mg daily (4) Diarrhea Status: Acute Plan: One to two loose stools daily for the past month. Has a history of mild Crohn's disease. GI doctor is Dr. Baldwin. Mild dehydration with lightheadedness with standing. - Zofran for nausea - PO fluids for hydration due to history of poor ejection fraction - Orthostatic vitals for lightheadedness when standing. (5) No contraindication to deep vein thrombosis (DVT) prophylaxis Status: Acute Plan: - Continue Coumadin from home, INR is 2.1 (6) Nutrition, metabolism, and development symptoms Status: Acute Plan: PO fluids Electrolytes stable Heart healthy diet Sohail Ch MD R2 Sep 24, 2016 16:36
--- NOTE | 2016-09-24 16:46 | HHI.FPPN ---
Subjective Remarks Patient seen, examined and discussed with the medicine team. This is a 65-year-old male with a long cardiac history who has a pacemaker and defibrillator who this morning, sitting on the couch, leaned forward and felt faint and lightheaded and his defibrillator went off. For the past few months he's had a sensation of some irregular or pounding heartbeats particularly when he goes to bed. Not really noticing fast heart rate but frequent periods of lightheadedness. He's also experience some GI issues over the last few months related to intermittent loose stools. He reports having a touch of Crohn's and reports also discussed current bowel symptom constellation does not seem like his Crohn's. He's had multiple stents placed after an RI. He's really not having chest pain now, and feels minimally short of breath with exertion such as walking to the mailbox. See detailed history and physical examination for this admission for additional historical information such as past, family, social history and review of systems for this admission. is with the patient and helps him recall details. He quit smoking more than 10 years ago, rare alcohol, no illicits. At times seen, he is resting in bed and does not complain of any chest pain or shortness of breath at rest. Prior to the onset of his symptoms of intermittent loose stools, he was on antibiotics for a sinus problem, namely ampicillin followed by a Z-Ronn. He sees Dr. Alicia for his cardiology physician. Dr. Baldwin is his GI doctor. Objective Vitals Vital Signs Date Time Temp Pulse Resp B/P Pulse Ox O2 Delivery O2 Flow Rate FiO2 09/24/16 11:54 96 Nasal Cannula 2.00 09/24/16 11:36 88 127/79 09/24/16 11:33 97 Nasal Cannula 2 09/24/16 11:27 80 16 95 Room Air 09/24/16 11:22 98.5 80 18 138/91 96 09/24/16 11:22 95 21 Result Diagram: 09/24/16 1134 09/24/16 1134 Other Results Laboratory Tests Test 09/24/16 11:34 Neutrophils (%) (Auto) 73.5 % Monocytes (%) (Auto) 10.3 % Prothrombin Time 23.6 SEC Activated Partial 32.4 SEC Thromboplast Time Blood Urea Nitrogen 23 MG/DL Estimat Glomerular Filtration 65 ML/MIN Rate Imaging EKG shows ST elevation and ST depression as well as multiple premature complexes. When compared to 2013, very similar. Last Impressions Chest X-Ray 09/24/16 1127 Signed Impressions: Service Date/Time: Saturday, September 24, 2016 11:31 - CONCLUSION: 1. Cardiomegaly without evidence for failure. 2. No acute abnormality. Karl Robbins MD Objective Remarks O. CONSTITUTIONAL/GEN: normally nourished, in NAD. EYES: conjunctiva normal, PERRLA, EOMI. ENT: Mouth and pharynx normal. NECK: Supple LUNGS: clear A-P, respiratory effort is normal. Increased AP diameter CARDIOVASCULAR: RR without murmur or gallop. No significant edema. He has implanted pacer and defibrillator. GI/ABD: soft without masses, without organomegaly. Active bowel sounds : no CVA tenderness NEURO: No focal deficits. SKIN: color normal, no rashes noted. HEME/LYMPH: no bruising, petechia or significant adenopathy MUSC: back is kyphotic in appearance. Extremities are normal in appearance except perhaps some mild ulnar deviation of his fingers and varicosities in the right lower extremity. PSYCH/MENTAL STATUS: Alert and oriented x 3. A/P Assessment and Plan Tachycardia with implanted defibrillator discharge in a 65-year-old male with a long cardiac history. Attending Attestation Patient seen and examined. Case reviewed and discussed with the resident team. Agree with plan of care as discussed with me and documented in the resident note. Karen Muhammad MD Sep 24, 2016 16:46
--- NOTE | 2016-09-24 18:34 | MB ---
cc: DIONE LOZANO DATE OF CONSULTATION 09/24/2016 DATE OF 1950 REASON FOR CONSULTATION AICD shocks. HISTORY OF PRESENT ILLNESS 65-year-old male with past medical history significant for ischemic cardiomyopathy on transplant least at [facility], atrial flutter status post dilation that presented to the hospital after AICD shock. The patient reports he was in his usual state of health at home when AICD fired. He denies any chest pain, shortness of breath, dizziness, syncope, fever or chills. However, he reports diarrhea for the last 2 weeks and decreased p.o. intake. EKG showed interventricular conduction delay concerning for ST elevation, however this EKG is unchanged from previous. Thus STEMI was cancel. Cardiology has been consulted for further management and evaluation. REVIEW OF SYSTEMS Negative except for what is mentioned in HPI. PAST MEDICAL HISTORY 1. Ischemic cardiomyopathy status post AICD [employer]. 2. Hypertension. 3. Hyperlipidemia. 4. Atrial flutter status post ablation. 5. Diverticulitis. 6. Peripheral vascular disease. 7. Gastroesophageal reflux disease. PAST SURGICAL HISTORY 1. Hernia repair. 2. AICD placement. 3. Tonsillectomy. SOCIAL HISTORY Denies alcohol use, tobacco abuse or illicit substance use. ALLERGIES CLINDAMYCIN, PENICILLIN AND REMICADE. MEDICATIONS Cardiac home medications: 1. Lisinopril 2.5 mg p.o. daily. 2. Metoprolol 75 mg p.o. b.i.d. 3. Aspirin 81 mg p.o. daily. 4. Coumadin 5 mg p.o. daily. FAMILY HISTORY Noncontributory. PHYSICAL EXAMINATION VITAL SIGNS: Temperature 98, respiratory rate 18, pulse 80, blood pressure 138/91, O2 sat 95% room air. GENERAL: Awake, alert and oriented times three in no acute distress. NECK: No JVD, no carotid bruits. CARDIOVASCULAR: Heart regular rate and rhythm. No murmurs, rubs or gallops. LUNGS: Clear to auscultation bilaterally. ABDOMEN: Soft, nontender, nondistended. Positive bowel sounds. EXTREMITIES: No cyanosis or edema. LABORATORY DATA CBC, hemoglobin 16, hematocrit 47, platelet count 183. INR 2.1. Chemistries sodium 141, potassium 4.2, BUN 23, creatinine 1.1. Troponin less than 0.03. EKG normal sinus rhythm with interventricular conduction delay. IMAGING Chest x-ray unremarkable. ASSESSMENT/PLAN 65-year-old with a known history of coronary artery disease presented after an AICD shock in the setting of recent gastric illness with diarrhea and nausea, decreased p.o. intake. He remains afebrile and hemodynamically stable with no cardiovascular complaints. At this point I agree with admission to the hospital for observation, cycle cardiac enzymes, AICD interrogation and optimization of medical therapy for coronary artery disease. Thank you for the opportunity to take part in the care of this patient. Further management to be determined. MD SALAS Bryant/MASON /4:12 PM /5:59 PM [email or web address]
[2016-09-24] MEDS ORDERED: AMBI12.5 (18:37)
[2016-09-24] MEDS: METOPROLOL TARTRATE 25 MG TAB PO SCH (21:00)
[2016-09-24] MEDS: SODIUM CHLORIDE 0.9% FLUSH 10 ML FLUSH IV FLUSH SCH (21:15)
[2016-09-24] MEDS: ZOLPIDEM TARTRATE 10 MG TAB PO PRN (23:30)
[2016-09-25] VITALS (10 sets, daily range): BP systolic 80–130; BP diastolic 52–78; PULSE 61–79; RESP 17–19; TEMP 96.1–98.7; O2SAT 94–97
[2016-09-25 03:16] LABS: AUTOMATED NEUTROPHIL # 5.4 TH/MM3 (1.8-7.7); BASOPHIL # 0.1 TH/MM3 (0-0.2); BASOPHIL % 1.2 % (0.0-2.0); EOSINOPHIL # 0.6 TH/MM3 (0-0.4); EOSINOPHIL % 6.7 % (0.0-4.0); HEMATOCRIT 45.3 % (39.0-51.0); HEMO FLAGS DIFF FINAL; LYMPH % 17.9 % (9.0-44.0); LYMPHOCYTE # 1.5 TH/MM3 (1.0-4.8); MEAN CELL VOLUME 87.4 FL (80.0-100.0); MEAN CORPUSCULAR HEMOGLOBIN 30.3 PG (27.0-34.0); MEAN CORPUSCULAR HGB CONC 34.7 % (32.0-36.0); MONO % 9.4 % (0.0-8.0); NEUT % 64.8 % (16.0-70.0); PLATELET COUNT 181 TH/MM3 (150-450); RED BLOOD COUNT 5.18 MIL/MM3 (4.50-5.90); RED CELL DISTRIBUTION WIDTH 15.9 % (11.6-17.2); WHITE BLOOD COUNT 8.3 TH/MM3 (4.0-11.0)
[2016-09-25 03:46] LABS: BICARBONATE 28.4 MEQ/L (21.0-32.0)
[2016-09-25] MEDS: LISINOPRIL 5 MG TAB PO SCH (08:02)
[2016-09-25] MEDS: METOPROLOL TARTRATE 25 MG TAB PO SCH ×2 (08:02→20:35)
[2016-09-25] MEDS: BUMETANIDE 1 MG TAB PO SCH (08:13)
[2016-09-25] MEDS: ASPIRIN 81 MG CHEW TAB CHEW SCH (08:13)
[2016-09-25] MEDS: WARFARIN SOD 5 MG TAB PO SCH (08:13)
[2016-09-25] MEDS: SODIUM CHLORIDE 0.9% FLUSH 10 ML FLUSH IV FLUSH SCH ×2 (08:13→20:35)
--- NOTE | 2016-09-25 08:24 | HHI.DCPOC ---
Discharge Care Plan Diagnosis: (1) Congestive heart failure (2) Defibrillator discharge (3) Diarrhea (4) Pre-syncope Goals to Promote Your Health * To prevent worsening of your condition and complications * To maintain your health at the optimal level Directions to Meet Your Goals Take your medications as prescribed Follow your dietary instruction Follow activity as directed Keep your appointments as scheduled Take your immunizations and boosters as scheduled If your symptoms worsen call your PCP, if no PCP go to Urgent Care Center or Emergency Room Smoking is Dangerous to Your Health. Avoid second hand smoke Call the 24-hour hour crisis hotline for domestic abuse at Sohail Ch MD R2 Sep 25, 2016 08:24
[2016-09-25] MEDS: ACETAMINOPHEN 325 MG TAB PO PRN (10:35)
--- NOTE | 2016-09-25 11:38 | ECHRPT ---
Indication: Syncope and collapse CONCLUSIONS Technically difficult study. Moderately dilated left ventricle. Wall thickness is measured at the upper limits of normal. The lef t ventricular systolic function is severely reduced with an estimated ejection fraction in the range o f 20-25%. There is diffuse global hypokinesis with distinct regional wall motion abnormalities. Akinetic mid t o distal anterior, apical, anteroseptal, [id number] anterolateral. wall motion. A pacemaker wire is noted. There is mild tricuspid valve regurgitation. Pulmonary arterial systolic pressure could not be ko mated due to an insufficient tricuspid valve regurgitation doppler jet for measurement. BP: 96 / 56 HR: 70 Rhythm: Other MEASUREMENTS (Male / Female) Normal Values Technical Quality:Technically difficult study 2D ECHO RV Internal Dim ED PLAX 2.9 cm LVOT Diameter 2.2 cm LA Systolic Diameter LX 4.0 cm 3.0 - 4.0 / 2.7 - 3.8 cm LV Ejection Fraction MOD BP 7.3 % >= 55 % LV Cardiac Index MOD BP 887.8 cm/minm LV Ejection Fraction MOD 4C 5.5 % LV Cardiac Index MOD 4C 694.8 cm/minm LV Ejection Fraction 4C AL 5.6 % LV Cardiac Index 4C AL 731.7 cm/minm LV Ejection Fraction MOD 2C 3.7 % LV Cardiac Index MOD 2C 424.6 cm/minm LV Ejection Fraction 2C AL 5.8 % LV Cardiac Index 2C AL 687.7 cm/minm M-MODE Aortic Root Diameter MM 3.6 cm LA Systolic Diameter MM 4.6 cm LA Ao Ratio MM 1.3 DOPPLER AV Peak Velocity 162.0 cm/s AV Peak Gradient 10.5 mmHg AI Peak Velocity 322.0 cm/s AI Peak Gradient 41.5 mmHg AI Pressure Half Time 1210.0 ms LVOT Peak Velocity 68.1 cm/s LVOT Peak Gradient 1.9 mmHg AV Area Cont Eq pk 1.6 cm LV E' Lateral Velocity 11.7 cm/s LV E' Septal Velocity 2.7 cm/s TR Peak Velocity 244.0 cm/s TR Peak Gradient 23.8 mmHg FINDINGS Left Ventricle Moderately dilated left ventricle. Wall thickness is measured at the upper limits of normal. The lef t ventricular systolic function is severely reduced with an estimated ejection fraction in the range o f 20-25%. There is diffuse global hypokinesis with distinct regional wall motion abnormalities. Akinetic mid t o distal anterior, apical, anteroseptal, [id number] anterolateral. wall motion. Right Ventricle A pacemaker wire is noted. Normal right ventricular size and systolic function. Left Atrium The left atrial size is normal. Right Atrium The right atrial size is normal. Atrial Septum Normal atrial septal thickness without atrial level shunting by limited color doppler interrogation. Aorta The aortic root and proximal ascending aorta are normal in size on limited imaging. Mitral Valve Structurally normal mitral valve. No mitral valve stenosis or regurgitation. Aortic Valve Trileaflet aortic valve. No aortic valve stenosis or regurgitation. Tricuspid Valve There is mild tricuspid valve regurgitation. Pulmonary arterial systolic pressure could not be ko mated due to an insufficient tricuspid valve regurgitation doppler jet for measurement. Pulmonary Valve The pulmonary valve is not well visualized. Vessels The inferior vena cava is normal in size. Pericardium No pericardial effusion. Arya Major MD, FACC (Electronically Signed) Final Date:25 September 2016 11:38
--- NOTE | 2016-09-25 11:42 | PD.CARD.PN ---
Subjective Subjective Remarks No CV complaints, however reports dizziness Objective Medications Current Medications Medications (Trade) Dose Ordered Sig/Ami Route Start Time Stop Time Status Last Admin (Aspirin Chew) 81 mg DAILY CHEW 09/25/16 09:00 09/25/16 08:13 (Bumetanide) 1 mg DAILY PO 09/25/16 09:00 09/25/16 08:13 (Lopressor) 75 mg BID PO 09/24/16 21:00 (Coumadin) 5 mg DAILY PO 09/25/16 09:00 09/25/16 08:13 (Prinivil) 2.5 mg DAILY PO 09/25/16 09:00 (NS Flush) 2 ml UNSCH PRN IV FLUSH 09/24/16 14:15 (NS Flush) 2 ml BID IV FLUSH 09/24/16 21:00 09/25/16 08:13 (Tylenol) 650 mg Q4H PRN PO 09/24/16 14:15 09/25/16 10:35 (Zofran Inj) 4 mg Q6H PRN IVP 09/24/16 14:15 (Narcan Inj) 0.4 mg UNSCH PRN IV 09/24/16 14:15 (Radha-Colace) 1 tab BID PRN PO 09/24/16 14:15 (Ambien) 10 mg HS PRN PO 09/24/16 23:00 09/24/16 23:30 Vital Signs / I&O Vital Signs Date Time Temp Pulse Resp B/P Pulse Ox O2 Delivery O2 Flow Rate FiO2 09/25/16 11:14 98.7 66 18 107/60 96 09/25/16 08:28 96 09/25/16 07:20 98.4 70 19 96/56 95 09/25/16 04:21 98.0 70 18 130/78 97 09/25/16 01:13 98.4 66 18 95/52 94 09/24/16 20:00 68 09/24/16 19:57 94 21 09/24/16 19:52 98.4 56 16 104/63 93 09/24/16 17:59 98.1 76 19 111/59 96 123/71 113/65 09/24/16 16:46 76 16 125/55 95 Nasal Cannula 2 09/24/16 16:42 85 18 120/55 96 09/24/16 11:54 96 Nasal Cannula 2.00 I/O 09/24/16 09/24/16 09/24/16 09/25/16 09/25/16 09/25/16 06:59 14:59 22:59 06:59 14:59 22:59 Intake Total 250 ml Balance 250 ml Intake Oral 250 ml # Voids 2 Physical Exam GENERAL: Well-nourished, well-developed patient. SKIN: Warm and dry. HEAD: Normocephalic. EYES: No scleral icterus. No injection or drainage. NECK: Supple, trachea midline. No JVD or lymphadenopathy. CARDIOVASCULAR: Regular rate and rhythm without murmurs, gallops, or rubs. RESPIRATORY: Breath sounds equal bilaterally. No accessory muscle use. GASTROINTESTINAL: Abdomen soft, non-tender, nondistended. EXTREMITIES: No cyanosis, or edema. NEUROLOGICAL: Awake, alert, and oriented x 3. Non-focal. Laboratory Laboratory Tests Test 09/24/16 09/25/16 20:20 03:04 Total Creatine Kinase 54 U/L 45 U/L Troponin I 0.08 NG/ML 0.06 NG/ML White Blood Count 8.3 TH/MM3 Red Blood Count 5.18 MIL/MM3 Hemoglobin 15.7 GM/DL Hematocrit 45.3 % Mean Corpuscular Volume 87.4 FL Mean Corpuscular Hemoglobin 30.3 PG Mean Corpuscular Hemoglobin 34.7 % Concent Red Cell Distribution Width 15.9 % Platelet Count 181 TH/MM3 Mean Platelet Volume 8.8 FL Neutrophils (%) (Auto) 64.8 % Lymphocytes (%) (Auto) 17.9 % Monocytes (%) (Auto) 9.4 % Eosinophils (%) (Auto) 6.7 % Basophils (%) (Auto) 1.2 % Neutrophils # (Auto) 5.4 TH/MM3 Lymphocytes # (Auto) 1.5 TH/MM3 Monocytes # (Auto) 0.8 TH/MM3 Eosinophils # (Auto) 0.6 TH/MM3 Basophils # (Auto) 0.1 TH/MM3 CBC Comment DIFF FINAL Differential Comment Sodium Level 141 MEQ/L Potassium Level 4.0 MEQ/L Chloride Level 104 MEQ/L Carbon Dioxide Level 28.4 MEQ/L Anion Gap 9 MEQ/L Blood Urea Nitrogen 23 MG/DL Creatinine 0.94 MG/DL Estimat Glomerular Filtration 80 ML/MIN Rate Random Glucose 94 MG/DL Calcium Level 8.8 MG/DL Imaging Last Impressions Chest X-Ray 09/24/16 1127 Signed Impressions: Service Date/Time: Saturday, September 24, 2016 11:31 - CONCLUSION: 1. Cardiomegaly without evidence for failure. 2. No acute abnormality. Karl Robbins MD Assessment and Plan Problem List: (1) Defibrillator discharge Assessment and Plan: No CV complaints AICD interrogation- SVT No need for [facility] Continue medical management Follow up with [place] [facility] upon discharge (2) Peripheral vascular disease (3) Hypertension (4) Paroxysmal SVT (supraventricular tachycardia) (5) Atrial flutter (6) CAD (coronary artery disease) (7) Ischemic cardiomyopathy (8) Diarrhea Lloyd Dozier MD Sep 25, 2016 11:42 Lloyd Dozier MD Sep 25, 2016 11:42
[2016-09-25] MEDS: IBUPROFEN 400 MG TAB PO PRN (13:35)
--- NOTE | 2016-09-25 14:29 | EKG ---
Date Performed: 09/24/2016 Time Performed: 11:19:07 PTAGE: 65 years EKG: Sinus rhythm WITH FIRST DEGREE AV BLOCK WITH FREQUENT VENTRICULAR PREMATURE COMPLEXES ANTEROLATERAL MYOCARDIAL IN FARCTION PREVIOUS TRACING : 04/29/2016 05.06.28 Compared to previous tracing, sinus rhythm has rep laced atrial flutter and old anterior/anteroseptal NE is present. The ST elevations seen in leads V1- V3 are more prominent, however, so consider acute ischemia/injury. DOCTOR: Nikolas Contreras Interpretating Date/Time 09/25/2016 14:28:59
[2016-09-25] MEDS ORDERED: CIME200T23 (16:14)
--- NOTE | 2016-09-25 18:14 | HHI.FPPN ---
Subjective Remarks Patient seen and examined this morning by medical team. No acute events overnight with vital signs stable. Patient currently complaining of 10/10 headache with radiation down his neck. He states that he needed has had this headache intermittently since his ICD fired. He asks examiners to palpate his neck for a finding, however none was found. Otherwise he has no complaints and denies any fevers, chills, shortness of breath, chest pain, NVD, abdominal pain , or calf tenderness. (Leonel Cornelius MD R1) Objective Vitals Vital Signs Date Time Temp Pulse Resp B/P Pulse Ox O2 Delivery O2 Flow Rate FiO2 09/25/16 15:15 98.7 62 18 103/62 95 09/25/16 14:40 19 09/25/16 11:14 98.7 66 18 107/60 96 09/25/16 10:15 79 09/25/16 08:28 96 09/25/16 07:20 98.4 70 19 96/56 95 09/25/16 04:21 98.0 70 18 130/78 97 09/25/16 01:13 98.4 66 18 95/52 94 09/24/16 20:00 68 09/24/16 19:57 94 21 09/24/16 19:52 98.4 56 16 104/63 93 I/O 09/24/16 09/24/16 09/24/16 09/25/16 09/25/16 09/25/16 07:00 15:00 23:00 07:00 15:00 23:00 Intake Total 250 ml Balance 250 ml Intake Oral 250 ml # Voids 2 (Leonel Cornelius MD R1) Result Diagram: 09/25/16 0304 09/25/16 0304 Objective Remarks GENERAL: 65-year-old male lying in bed in mild distress secondary to headache. SKIN: No rashes, ecchymoses or lesions. HEENT: Atraumatic, normocephalic with EOMI. MMM. No LAD or JVD appreciated. CARDIOVASCULAR: Regular rate and rhythm without murmurs, gallops, or rubs. Defibrillator palpable on right chest. RESPIRATORY: Clear to auscultation bilaterally with no CRW. GASTROINTESTINAL: Abdomen soft, non-tender, nondistended with positive bowel sounds. No masses appreciated. MUSCULOSKELETAL: Extremities without cyanosis or edema. No calf tenderness. NEUROLOGICAL: AAO 3. Motor and sensory grossly within normal limits. Five out of 5 muscle strength in all muscle groups. Normal speech (Leonel Cornelius MD R1) A/P Assessment and Plan Mr. Blank is a 65-year-old male admitted for observation s/p his ICD firing secondary to SVT. Discharge Planning Likely tomorrow pending clinical course. (Leonel Cornelius MD R1) Attending Attestation Patient seen and examined. Case reviewed and discussed with the resident team. Agree with plan of care as discussed with me and documented in the resident note. (Karen Muhammad MD) Problem List: (1) Defibrillator discharge Status: Acute Plan: Defibrillator discharge after rate in the low 200's (SVT). EKG showing ST elevations in V1, V2, V3, V4. No chest pain or shortness of breath. EKG reviewed with chief guard, no immediate intervention indicated at this time per the chief guard. Similar to EKG in 2014. - Continuous cardiac monitoring. - Troponins: 0.03, 0.08, 0.06 - Fall precautions - Orthostatic vital signs - Cardiology consulted and recommends continuing medical management. - Patient to follow-up with the [facility] cardiology upon discharge. (2) Lightheadedness Status: Acute Plan: Lightheadedness especially with standing. No loss of consciousness. Most recent episode of lightheadedness occurred with defibrillator discharge. - Continuous cardiac monitoring. - Echocardiogram: Left ventricular systolic function is severely reduced with an estimated ejection fraction in the range of 20-25%. There is global diffuse hypokinesis with distinct regional wall motion abnormalities. Akinetic mid to distal anterior, apical, anteroseptal, and anterolateral wall motion. Mild tricuspid valve regurgitation. Pulmonary artery systolic pressure could not be estimated due to insufficient tricuspid valve regurgitation Doppler jet for measurement. - Cardiology consulted (3) Ischemic cardiomyopathy Status: Acute Plan: History of ischemic cardiomyopathy with 18% ejection fraction. No evidence of acute CHF exacerbation. History of [place] with 4 stents. - Continue Lisinopril 2.5 mg daily - Continue metoprolol 75 mg bid - Continue Bumex 1 mg daily - Continue daily aspirin 81 mg daily (4) Diarrhea Status: Acute Plan: One to two loose stools daily for the past month. Has a history of mild Crohn's disease. GI doctor is Dr. Baldwin. Mild dehydration with lightheadedness with standing. - Zofran for nausea - PO fluids for hydration due to history of poor ejection fraction - Orthostatic vitals for lightheadedness when standing. (5) No contraindication to deep vein thrombosis (DVT) prophylaxis Status: Acute Plan: - Continue Coumadin from home, INR is 2.1 at admission (6) Nutrition, metabolism, and development symptoms Status: Acute Plan: PO fluids Electrolytes stable Heart healthy diet (Leonel Cornelius MD R1) Leonel Cornelius MD R1 Sep 25, 2016 18:14 Karen Muhammad MD Sep 25, 2016 19:19
[2016-09-25] MEDS: ZOLPIDEM TARTRATE 10 MG TAB PO PRN (18:55)
[2016-09-26] MEDS: ACETAMINOPHEN 325 MG TAB PO PRN (00:22)
[2016-09-26 05:40] VITALS: BP 123/68; PULSE 61; RESP 18; TEMP 97.5; O2SAT 96
[2016-09-26 07:20] VITALS: BP 110/75; PULSE 88; RESP 18; TEMP 98.1; O2SAT 96
[2016-09-26 07:24] VITALS: O2SAT 96
[2016-09-26 08:04] VITALS: PULSE 84
[2016-09-26] MEDS: IBUPROFEN 400 MG TAB PO PRN (08:16)
[2016-09-26] MEDS: ASPIRIN 81 MG CHEW TAB CHEW SCH (08:17)
[2016-09-26] MEDS: METOPROLOL TARTRATE 25 MG TAB PO SCH (08:17)
[2016-09-26] MEDS: LISINOPRIL 5 MG TAB PO SCH (08:17)
[2016-09-26] MEDS: WARFARIN SOD 5 MG TAB PO SCH (08:17)
[2016-09-26] MEDS: BUMETANIDE 1 MG TAB PO SCH (08:17)
[2016-09-26] MEDS: SODIUM CHLORIDE 0.9% FLUSH 10 ML FLUSH IV FLUSH SCH (08:17)
--- NOTE | 2016-09-26 10:50 | HHI.FPPN ---
Subjective Remarks No acute events. He is resting in bed. No chest pain or shortness of breath. No abdominal pain. Has mild nausea but no vomiting. No calf tenderness. Headache is mild. It starts in his neck muscles and goes to the back of his head. He states it is chronic and relieved by tylenol/nsaids. No lightheadedness or fainting. (Sohail Ch MD R2) Objective Vitals Vital Signs Date Time Temp Pulse Resp B/P Pulse Ox O2 Delivery O2 Flow Rate FiO2 09/26/16 07:24 96 21 09/26/16 07:20 98.1 88 18 110/75 96 09/26/16 05:40 97.5 61 18 123/68 96 09/25/16 23:30 98.6 61 17 121/67 96 09/25/16 20:22 96.1 64 18 80/52 94 09/25/16 18:25 78 09/25/16 15:15 98.7 62 18 103/62 95 09/25/16 14:40 19 09/25/16 11:14 98.7 66 18 107/60 96 I/O 09/25/16 09/25/16 09/25/16 09/26/16 09/26/16 09/26/16 07:00 15:00 23:00 07:00 15:00 23:00 Intake Total 240 ml Output Total 500 ml Balance -260 ml Intake Oral 240 ml Output Urine Total 500 ml # Voids 1 (Sohail Ch MD R2) Result Diagram: 09/25/16 0304 09/25/16 0304 Objective Remarks GENERAL: No distress, resting in bed SKIN: No rashes, ecchymoses or lesions. HEENT: Atraumatic, normocephalic with EOMI. MMM. No LAD or JVD CARDIOVASCULAR: Regular rate and rhythm without murmurs, gallops, or rubs. Defibrillator palpable on right chest. RESPIRATORY: Clear to auscultation bilaterally with no CRW. GASTROINTESTINAL: Abdomen soft, non-tender, nondistended with positive bowel sounds. No masses appreciated. MUSCULOSKELETAL: Extremities without cyanosis or edema. No calf tenderness. NEUROLOGICAL: AAO 3. Motor and sensory grossly within normal limits. Five out of 5 muscle strength in all muscle groups. Normal speech (Sohail Ch MD R2 ) A/P Assessment and Plan 65-year-old male admitted for observation s/p his ICD firing secondary to SVT. Also with lightheadedness, nausea, and vomiting, but no syncope. Discharge Planning Likely today. Continue current management at discharge. Will need to follow up at [place] for his potential heart transplant as scheduled. (Sohail Ch MD R2 ) Attending Attestation Patient seen and examined. Case reviewed and discussed with the resident team. Agree with plan of care as discussed with me and documented in the resident note. (Karen Muhammad MD) Problem List: (1) Defibrillator discharge Status: Acute Plan: Defibrillator discharge after rate in the low 200's (SVT). EKG showing ST elevations in V1, V2, V3, V4. No chest pain or shortness of breath. EKG reviewed with friction paint machine tender, no immediate intervention indicated at this time per the friction paint machine tender. Similar to EKG in 2014. Trops .03, .08, .06. No chest pain. ECHO showing EF of 20-25, improved from priors. - Cardiology consulted and recommends continuing medical management. - Patient to follow-up with the [facility] cardiology upon discharge. - Currently on heart transplant list for severe CHF/cardiomyopathy ] - Continue previous management with aspirin, eric inhibitor, beta kia, spironolactone (2) Lightheadedness Status: Acute Plan: Lightheadedness especially with standing. No loss of consciousness. Most recent episode of lightheadedness occurred with defibrillator discharge. Echocardiogram: Left ventricular systolic function is severely reduced with an estimated ejection fraction in the range of 20-25%. Likely there is an element of dehydration as he had some nausea/vomiting and loose stools prior to coming to the hospital. He has chronic colitis. Also multiple antihypertensive medications and diuretics may be contributing. - Cardiology consulted - Encourage good hydration - Stand up slowly - Charles machuca (3) Ischemic cardiomyopathy Status: Acute Plan: History of ischemic cardiomyopathy with 18% ejection fraction. No evidence of acute CHF exacerbation. History of [place] with 4 stents. - Continue Lisinopril 2.5 mg daily - Continue metoprolol 75 mg bid - Continue Bumex 1 mg daily - Continue spironolactone - Continue daily aspirin 81 mg daily (4) Diarrhea Status: Acute Plan: One to two loose stools daily for the past month. Has a history of mild Crohn's disease. GI doctor is Dr. Baldwin. Mild dehydration with lightheadedness with standing. - Zofran for nausea - PO fluids for hydration due to history of poor ejection fraction - Orthostatic vitals for lightheadedness when standing. (5) No contraindication to deep vein thrombosis (DVT) prophylaxis Status: Acute Plan: - Continue Coumadin from home, INR is 2.1 at admission (6) Nutrition, metabolism, and development symptoms Status: Acute Plan: PO fluids Electrolytes stable Heart healthy diet (Sohail Ch MD R2) Sohail Ch MD R2 Sep 26, 2016 10:50 Karen Muhammad MD Sep 26, 2016 12:06
[2016-09-26 12:04] VITALS: BP 90/57; PULSE 67; RESP 18; TEMP 97.6; O2SAT 96
--- NOTE | 2016-09-26 14:54 | HHI.DS ---
Discharge Summary Admission Date Sep 24, 2016 at 12:50 pm Discharge Date: Sep 26, 2016 Admitting Diagnosis tachycardia dysrhythmia/defibrillator fired (1) Defibrillator discharge Diagnosis: Principal Plan: Defibrillator discharge after rate in the low 200's (SVT). EKG showing ST elevations in V1, V2, V3, V4. No chest pain or shortness of breath. EKG reviewed with supervisor yard, no immediate intervention indicated at this time per the supervisor yard. Similar to EKG in 2014. Trops .03, .08, .06. No chest pain. ECHO showing EF of 20-25, improved from priors. - Cardiology consulted and recommends continuing medical management. - Patient to follow-up with the [facility] cardiology upon discharge. - Currently on heart transplant list for severe CHF/cardiomyopathy ] - Continue previous management with aspirin, eric inhibitor, beta kia, spironolactone (2) Lightheadedness Diagnosis: Principal Plan: Lightheadedness especially with standing. No loss of consciousness. Most recent episode of lightheadedness occurred with defibrillator discharge. Echocardiogram: Left ventricular systolic function is severely reduced with an estimated ejection fraction in the range of 20-25%. Likely there is an element of dehydration as he had some nausea/vomiting and loose stools prior to coming to the hospital. He has chronic colitis. Also multiple antihypertensive medications and diuretics may be contributing. - Cardiology consulted - Encourage good hydration - Stand up slowly - Charles machuca (3) Ischemic cardiomyopathy Diagnosis: Principal Plan: History of ischemic cardiomyopathy with 18% ejection fraction. No evidence of acute CHF exacerbation. History of OH with 4 stents. - Continue Lisinopril 2.5 mg daily - Continue metoprolol 75 mg bid - Continue Bumex 1 mg daily - Continue spironolactone - Continue daily aspirin 81 mg daily (4) Diarrhea Diagnosis: Secondary Plan: One to two loose stools daily for the past month. Has a history of mild Crohn's disease. GI doctor is Dr. Baldwin. Mild dehydration with lightheadedness with standing. - Zofran for nausea - PO fluids for hydration due to history of poor ejection fraction - Orthostatic vitals for lightheadedness when standing. (5) No contraindication to deep vein thrombosis (DVT) prophylaxis Diagnosis: Secondary Plan: - Continue Coumadin from home, INR is 2.1 at admission (6) Nutrition, metabolism, and development symptoms Diagnosis: Secondary Plan: PO fluids Electrolytes stable Heart healthy diet [facility] Cardiology Procedures ICD interrogation Brief History 65 year old male with a history of prior OH, defibrillator/pacemaker, severe cardiomyopathy with poor ejection fraction, presents after defibrillator fired. It occurred this morning at about 10:30 AM. He was sitting on the couch. He leaned forward and felt lightheaded and faint. At that time the defibrillator went off. He did not lose consciousness. He has no chest pain or shortness of breath. He has diarrhea and crampy abdominal pain with nausea, but no vomiting, for the past 4 weeks. He has a history of chronic colitis. He is having one to two soft to liquid stools a day. No blood in stools noted. He was recently on amoxicillin and Z-pack for a respiratory infection back in July. He has been getting lightheaded over the past few weeks with standing. He has not lost consciousness during any of these events. He notes that his defibrillator has fired about 5 times over the past 5 years. The defibrillator was reviewed and was noted to have discharged for a heart rate in the low 200's. ST elevations were noted on the EKG by EMS in V1, V2, V3. Case was initially discussed with Dr. Kearney who saw the EKGs and agrees that he has not impressed for an ST elevation OH. Initial troponin negative, subsequent cardiac enzymes and EKG's are pending. He sometimes feels his heart pounding, but this is a chronic issue for him. He gets mild dyspnea when walking to the mailbox. No lower extremity edema. CBC/BMP: 09/25/16 0304 09/25/16 0304 Significant Findings Laboratory Tests Test 09/24/16 09/24/16 09/25/16 11:34 20:20 03:04 Neutrophils (%) (Auto) 73.5 % (16.0-70.0) Monocytes (%) (Auto) 10.3 % 9.4 % (0.0-8.0) (0.0-8.0) Prothrombin Time 23.6 SEC (9.8-11.6) Activated Partial 32.4 SEC Thromboplast Time (24.3-30.1) Blood Urea Nitrogen 23 MG/DL (7-18) 23 MG/DL (7-18) Estimat Glomerular Filtration 65 ML/MIN (>89) 80 ML/MIN (>89) Rate Troponin I 0.08 NG/ML 0.06 NG/ML (0.02-0.05) (0.02-0.05) Eosinophils (%) (Auto) 6.7 % (0.0-4.0) Eosinophils # (Auto) 0.6 TH/MM3 (0-0.4) PE at Discharge GENERAL: No distress, resting in bed SKIN: No rashes, ecchymoses or lesions. HEENT: Atraumatic, normocephalic with EOMI. MMM. No LAD or JVD CARDIOVASCULAR: Regular rate and rhythm without murmurs, gallops, or rubs. Defibrillator palpable on right chest. RESPIRATORY: Clear to auscultation bilaterally with no CRW. GASTROINTESTINAL: Abdomen soft, non-tender, nondistended with positive bowel sounds. No masses appreciated. MUSCULOSKELETAL: Extremities without cyanosis or edema. No calf tenderness. NEUROLOGICAL: AAO 3. Motor and sensory grossly within normal limits. Five out of 5 muscle strength in all muscle groups. Normal speech Hospital Course 65 year old male with history of prior OH, defibrillator/pacemaker dependent, severe cardiomyopathy presented after defibrillator fired for SVT. He was leaning foward and felt lightheaded and faint when his defibrillator fired. He has chronic colitis and had some vomiting and diarrhea leading up to the event. He has noticed getting lightheaded with standing recently. He was admitted for observation with continuous cardiac monitoring. Cardiac enzymes were trended and acute OH was ruled out. Echocardiogram was done and showed EF of 20-25% which was improved from prior ECHO's. After two night of no events, he was discharged. He will continue with treatment for CHF including lisinopril 2.5 mg daily, metoprolol 75 mg bid, Bumex 1 mg daily, aspirin 81 mg daily. He is on a heart transplant waiting list and has an appointment to follow up with [facility]. He will also follow up with cardiology and his PCP. Pt Condition on Discharge: Stable Discharge Disposition: Discharge Home Discharge Instructions DIET: Follow Instructions for: Heart Healthy Diet Activities you can perform: Regular-No Restrictions Other Activity Instructions: Stand up slowly Get low to ground when feeling lightheaded Good hydration Follow up Referrals: Cardiology - 1 Week PCP Follow-up - 1 Week Continued Medications: Aspirin (Aspirin) 81 Mg Chew 81 MG CHEW DAILY Ref 0 TAB Lisinopril (Lisinopril) 2.5 Mg Tab 2.5 MG PO DAILY #30 Ref 0 TAB Metoprolol Tartrate (Metoprolol Tartrate) 75 Mg Tab 75 MG PO BID #60 Ref 0 TAB Spironolactone (Spironolactone) 25 Mg Tab 12.5 MG PO DAILY #15 Ref 0 TAB Warfarin (Coumadin) 5 Mg Tab 5 MG PO DAILY Blood Clot Prevention #30 Ref 0 TAB Warfarin (Warfarin) 2.5 Mg Tab 2.5 MG PO EVERY OTHER DAY Blood Clot Prevention #30 Ref 0 TAB Zolpidem ER (Ambien CR) 12.5 Mg Tab 12.5 MG .ROUTE HS PRN SLEEP #1 Ref 0 TAB Sohail Ch MD R2 Sep 26, 2016 2:53 pm
== END 2016-09-26 14:02 | disposition home or self-care (01) ==
LOC: NEPE 11:16 → INTOOBSV 12:50 → NEDA 12:50 → NEPFCDU 17:57
PROVIDERS: ADMIT Family Medicine; ATTEND Family Medicine
DX: T82.191A Other mechanical complication of cardiac pulse generator (battery), initial encounter (principal); R42 Dizziness and giddiness; I11.0 Hypertensive heart disease with heart failure; I50.9 Heart failure, unspecified; I25.5 Ischemic cardiomyopathy; I25.10 Atherosclerotic heart disease of native coronary artery without angina pectoris; E86.0 Dehydration; K52.9 Noninfective gastroenteritis and colitis, unspecified; Y83.1 Surgical operation with implant of artificial internal device as the cause of abnormal reaction of the patient, or of later complication, without mention of misadventure at the time of the procedure; R11.2 Nausea with vomiting, unspecified; I73.9 Peripheral vascular disease, unspecified; I47.1 Supraventricular tachycardia; I25.2 Old myocardial infarction; I48.92 Unspecified atrial flutter; Z95.5 Presence of coronary angioplasty implant and graft; Z79.01 Long term (current) use of anticoagulants; Z79.82 Long term (current) use of aspirin; Z88.1 Allergy status to other antibiotic agents; Z88.0 Allergy status to penicillin; Z88.8 Allergy status to other drugs, medicaments and biological substances; Z87.891 Personal history of nicotine dependence
CPT/HCPCS: 71010; 80048; 80053; 82550; 83735; 84484; 85025; 85610; 85730; 93005; 93306; 99285; G0378

== ENCOUNTER 2016-12-31 03:19 | Inpatient (IN) | payer MEDICARE ==
[~2016-12-31] VITALS: Ht 170.2 cm; Wt 65.6 kg
[2016-12-31] VITALS (17 sets, daily range): BP systolic 94–110; BP diastolic 55–77; PULSE 46–72; RESP 16–20; TEMP 98.1–98.4; O2SAT 67–99
[~2016-12-31 03:19] MED LIST changes: +AMBI12.5; -BUME1TAB PO; +CIME200T23; +SPIR25TA PO; +WARF-18 PO
[2016-12-31] MEDS ORDERED: ATROPINE SULFATE 1 MG/ML VIAL ONE (04:16)
--- NOTE | 2016-12-31 06:02 | RADRPT ---
EXAM DATE/TIME: 12/31/2016 05:08 [place] COMPARISON: CHEST SINGLE AP, September 24, 2016, 11:31. INDICATIONS : Shortness of breath. MEDICAL HISTORY : Myocardial infarction. Hypertension SURGICAL HISTORY : Pacemaker. Coronary artery stent ENCOUNTER: Initial ACUITY: 1 day PAIN SCORE: 0/10 LOCATION: Bilateral chest FINDINGS: Left PICC line tip in superior vena cava. Pacer lead overlies right ventricle. Mild cardiomegaly. Tor tuous aorta. No focal consolidation or effusion. No pneumothorax. CONCLUSION: 1. Left PICC line in superior vena cava. Tortuous aorta. No active disease. Cliff Kearney MD on December 31, 2016 at 5:59 Board Certified Radiologist. This report was verified electronically.
[2016-12-31 06:16] LABS: AUTOMATED NEUTROPHIL # 6.4 TH/MM3 (1.8-7.7); BASOPHIL # 0.1 TH/MM3 (0-0.2); BASOPHIL % 1.2 % (0.0-2.0); EOSINOPHIL # 0.4 TH/MM3 (0-0.4); EOSINOPHIL % 4.6 % (0.0-4.0); HEMATOCRIT 45.1 % (39.0-51.0); HEMO FLAGS DIFF FINAL; LYMPH % 11.1 % (9.0-44.0); MEAN CELL VOLUME 89.5 FL (80.0-100.0); MEAN CORPUSCULAR HEMOGLOBIN 29.9 PG (27.0-34.0); MEAN CORPUSCULAR HGB CONC 33.4 % (32.0-36.0); MONO % 9.8 % (0.0-8.0); NEUT % 73.3 % (16.0-70.0); PLATELET COUNT 169 TH/MM3 (150-450); RED BLOOD COUNT 5.04 MIL/MM3 (4.50-5.90); RED CELL DISTRIBUTION WIDTH 14.1 % (11.6-17.2); WHITE BLOOD COUNT 8.7 TH/MM3 (4.0-11.0)
[2016-12-31 06:23] LABS: APTT (PATIENT) 41.1 SEC (24.3-30.1); INTERNATIONAL NORMALIZED RATIO 2.9 RATIO; PROTHROMBIN TIME - PATIENT 34.1 SEC (9.8-11.6)
[2016-12-31 06:32] LABS: ANION GAP 9 MEQ/L (5-15); AST (GOT) 14 U/L (15-37); BICARBONATE 26.1 MEQ/L (21.0-32.0); BLOOD UREA NITROGEN 18 MG/DL (7-18); CHLORIDE 99 MEQ/L (98-107); GLOMERULAR FILTRATION RATE 69 ML/MIN (>89); MAGNESIUM 1.9 MG/DL (1.5-2.5); SODIUM (NA) 134 MEQ/L (136-145)
[2016-12-31 06:33] LABS: ALT (GPT) 18 U/L (12-78)
[2016-12-31 06:42] LABS: ALKALINE PHOSPHATASE 69 U/L (45-117); TOTAL BILIRUBIN ADULT 0.6 MG/DL (0.2-1.0)
[2016-12-31 06:45] LABS: CREATINE KINASE 82 U/L (39-308)
[2016-12-31] MEDS ORDERED: WARF-23 PO (07:07)
[2016-12-31] MEDS ORDERED: MILRINJ2 (07:07)
[2016-12-31] MEDS ORDERED: METO25TA3 PO (07:07)
[2016-12-31] MEDS ORDERED: LACTULOSE SYRUP 20 GM/30 ML CUP PO PRN (09:00)
[2016-12-31] MEDS: SODIUM CHLORIDE 0.9% FLUSH 10 ML FLUSH IV FLUSH SCH ×2 (09:00→20:05)
[2016-12-31] MEDS ORDERED: SENNOSIDES 8.6 MG TAB PO PRN (09:00)
[2016-12-31] MEDS: DOCUSATE SODIUM 50 MG/SENNA 8.6 MG TAB PO SCH ×2 (09:00→20:05)
[2016-12-31] MEDS ORDERED: MAGNESIUM HYDROXIDE SUSP 30 ML CUP PO PRN (09:00)
[2016-12-31] MEDS ORDERED: BISACODYL 10 MG SUPP RECTAL PRN (09:00)
[2016-12-31] MEDS ORDERED: ONDANSETRON HCL 4 MG/2 ML VIAL IVP PRN (09:00)
[2016-12-31] MEDS ORDERED: NALOXONE HCL 0.4 MG/ML AMP IV PRN (09:00)
[2016-12-31] MEDS ORDERED: SODIUM CHLORIDE 0.9% FLUSH 10 ML FLUSH IV FLUSH PRN (09:00)
--- NOTE | 2016-12-31 09:24 | PD ---
HPI Chief Complaint: Medical Clearance Time Seen by Provider: 05:04 Travel History International Travel<30 days: No Contact w/Intl Traveler<30days: No Traveled to known affect area: No History of Present Illness HPI The patient is a 66 year old male who presents to the [facility] emergency department with a history of generalized fatigue that he reports has gradually been worsening over the last 6 months. The patient has a history of coronary artery disease and an ischemic cardiomyopathy with an ejection fraction that he reports is gradually been worsening recently. He reports he was most recently admitted in [place] related to a congestive heart failure exacerbation. He reports that his ejection fraction at that time was between 5 and 10%. He was discharged from the hospital a week ago on a milrinone infusion. The patient reports that he is in the process of being worked up to be placed on the cardiac transplant list. The patient reports that since being discharged she has had generalized body aches, increased fatigue, headaches, chest tightness, and shortness of breath. On review of systems otherwise, he denies any known recent fevers, productive cough, congestion, neck pain, abdominal pain , vomiting, diarrhea, urinary symptoms, or focal neurologic symptoms. [facility] Past Medical History Narrative Medical The patient's past medical history is significant for ischemic cardiomyopathy, atrial fibrillation chronically anticoagulated on Coumadin, history of coronary artery disease with 4 prior stents placed, history of acid reflux, ulcerative colitis. Hx Anticoagulant Therapy: Yes Asthma: No Blood Disorders: No Anxiety: No Depression: No Cancer: No Cardiac Catheterization: Yes (4 STENTS) Cardiovascular Problems: Yes (PA, DEFIBRILATOR, AND PACEMAKER ) High Cholesterol: No Chemotherapy: No Chest Pain: No Congestive Heart Failure: No COPD: No Diabetes: No Diminished Hearing: No Diverticulitis: Yes Endocrine: No Gastrointestinal Disorders: Yes (ULCERATIVE CHOLITIS, CHRONES ESOPHAGEAL REFLUX ) GERD: Yes Genitourinary: No Hiatal Hernia: Yes (REPAIRED 25 YRS AGO) Hypertension: Yes Immune Disorder: No Implanted Vascular Access Dvce: Yes Musculoskeletal: No Neurologic: No Psychiatric: No Reproductive: No Respiratory: Yes (FREQUENT SOB ON EXERTION) Myocardial Infarction: Yes Radiation Therapy: No Sleep Apnea: No Thyroid Disease: No Ulcer: Yes Tetanus Vaccination: < 5 Years Influenza Vaccination: Yes Past Surgical History Narrative Surgical The patient's past surgical history is significant for hernia repair, appendectomy, cholecystectomy, pacemaker placement, tonsillectomy, back surgery , bowel resection, cardiac catheterization with 4 prior stents placed. Abdominal Surgery: Yes (HERNIA REPAIR X3) AICD: Yes (2007 metronic defib placed on r; defib on l removed) Appendectomy: Yes Cardiac Surgery: Yes (PACEMAKER) Cholecystectomy: Yes Coronary Stent: Yes Ear Surgery: No Endocrine Surgery: No Eye Surgery: Yes (2007) Genitourinary Surgery: No Neurologic Surgery: Yes (BACK) Oral Surgery: Yes (TONSILS REMOVED) Pacemaker: Yes Thoracic Surgery: No Tonsillectomy: Yes (1966) Other Surgery: Yes (SINUS KIMBERLY; 10" bowel removed 1986; hernia 2007) Social History Alcohol Use: No Tobacco Use: No Substance Use: No Allergies-Medications (Allergen,Severity, Reaction): Coded Allergies: clindamycin (Unverified Allergy, Severe, RASH, FEVER, 12/31/16) infliximab (Unverified Allergy, Severe, FEVER, RASH, 12/31/16) infliximab-dyyb (Unverified Allergy, Severe, FEVER, RASH, 12/31/16) penicillin G (Unverified Allergy, Severe, RASH, 12/31/16) STATES HES NOT ALLERGIC ANY MORE amiodarone (Verified Allergy, Unknown, Hypotension, 12/31/16) "MY BODY DIDN'T REACT THE RIGHT WAY TO IT" Reported Meds & Prescriptions Reported Meds & Active Scripts Active Reported Milrinone in Dextrose 20 mg/100Ml (Milrinone in Dextrose) 20 Mg/100 Ml (200 Mcg/ Ml) Inj 0.125 Mcg DAILY Warfarin 5 Mg Tab 5 Mg PO EVERY OTHER DAY Metoprolol Tartrate 25 Mg Tab 25 Mg PO DAILY Tagamet Hb (Cimetidine) 200 Mg Tab 200 Mg .ROUTE BID PRN Ambien CR (Zolpidem Tartrate) 12.5 Mg Tab 12.5 Mg .ROUTE HS PRN Warfarin 2.5 Mg Tab 2.5 Mg PO EVERY OTHER DAY Lisinopril 2.5 Mg Tab 2.5 Mg PO DAILY Aspirin 81 Mg Chew 81 Mg CHEW DAILY Review of Systems Except as stated in HPI: all other systems reviewed are Neg General / Constitutional: No: Fever Eyes: No: Visual changes HENT: Positive: Headaches, No: Congestion, Neck Stiffness, Neck Pain Cardiovascular: Positive: Chest Pain or Discomfort, Dyspnea on exertion Respiratory: Positive: Shortness of Breath, No: Cough Gastrointestinal: No: Nausea, Vomiting, Diarrhea, Abdominal Pain Genitourinary: No: Dysuria Musculoskeletal: Positive: Myalgias, Pain Skin: No Rash Neurologic: Positive: Weakness (generalized fatigue and weakness), Headache, No : Focal Abnormalities, Coordination Problem, Change in Mentation, Slurred Speech , Sensory Disturbance Psychiatric: No: Depression Endocrine: No: Polydipsia Hematologic/Lymphatic: No: Easy Bruising Physical Exam Narrative General: The patient is a well-developed thin appearing male in no acute distress. Head and Neck exam: Head is normocephalic atraumatic. Eyes: EOMI, pupils are equal round and reactive to light. Nose: Midline septum with pink mucous membranes Mouth: Dentition unremarkable. Moist mucus membranes. Posterior oropharynx is not erythematous. No tonsillar hypertrophy. Uvula midline. Airway patent. Neck: No palpable lymphadenopathy. No nuchal rigidity. No thyromegaly. Cardiovascular: Irregularly irregular with a rate in the 40s to 60s without murmurs, gallops, or rubs. Lungs: Clear to auscultation bilaterally. No wheezes, rhonchi, or rales. Abdomen: Soft, without tenderness to palpation in all 4 quadrants of the abdomen. No guarding, rebound, or rigidity. Normal bowel sounds are audible. No tenderness on palpation of McBurney's point Extremities: No clubbing, cyanosis, or edema. 2+ pulses in all 4 extremities. No calf tenderness on palpation. Back: No spinous process tenderness to palpation. No costovertebral angle tenderness to palpation. Neurologic Exam: Grossly nonfocal. Skin Exam: No rash noted. Intact skin that is warm and dry. Data Data Last Documented VS Vital Signs Date Time Temp Pulse Resp B/P (MAP) Pulse Ox O2 Delivery O2 Flow Rate FiO2 12/31/16 07:30 46 16 108/65 (79) 99 12/31/16 06:11 Room Air 12/31/16 04:32 2.00 12/31/16 03:21 98.1 Orders Orders Atropine Inj (Atropine Inj) (12/31/16 04:16) Electrocardiogram (12/31/16 05:04) Complete Blood Count With Diff (12/31/16 05:04) Comprehensive Metabolic Panel (12/31/16 05:04) Creatine Kinase (Cpk) (12/31/16 05:04) Ckmb (Isoenzyme) Profile (12/31/16 05:04) Troponin I (12/31/16 05:04) B-Type Natriuretic Peptide (12/31/16 05:04) Prothrombin Time / Inr (Pt) (12/31/16 05:04) Act Partial Throm Time (Ptt) (12/31/16 05:04) Lipase (12/31/16 05:04) Urinalysis - C+S If Indicated (12/31/16 05:04) Magnesium (Mg) (12/31/16 05:04) Thyroid Stimulating Hormone (12/31/16 05:04) Iv Access Insert/Monitor (12/31/16 05:04) Ecg Monitoring (12/31/16 05:04) Oximetry (12/31/16 05:04) Lactic Acid Sepsis Protocol (12/31/16 05:04) Chest, Single Ap (12/31/16 05:06) Admit Order (Ed Use Only) (12/31/16 08:44) Place In Observation (12/31/16 ) Vital Signs (Adult) Q4H (12/31/16 08:47) Activity Oob With Assistance (12/31/16 08:47) Manual Plate Filler / Telemetry .CONTINUOUS (12/31/16 08:47) Diet Heart Healthy (12/31/16 Breakfast) Sodium Chloride 0.9% Flush (Ns Flush) (12/31/16 09:00) Sodium Chloride 0.9% Flush (Ns Flush) (12/31/16 09:00) Acetaminophen (Tylenol) (12/31/16 09:00) Ondansetron Inj (Zofran Inj) (12/31/16 09:00) Resp Oxygen Gabriel C Titrat 1-4 L (12/31/16 ) Naloxone Inj (Narcan Inj) (12/31/16 09:00) Docusate Sodium-Senna (Radha-Colace) (12/31/16 09:00) Magnesium Hydroxide Liq (Milk Of Magnesi (12/31/16 09:00) Sennosides (Senokot) (12/31/16 09:00) Bisacodyl Supp (Dulcolax Supp) (12/31/16 09:00) Lactulose Liq (Lactulose Liq) (12/31/16 09:00) Labs Laboratory Tests Test 12/31/16 05:50 White Blood Count 8.7 TH/MM3 Red Blood Count 5.04 MIL/MM3 Hemoglobin 15.1 GM/DL Hematocrit 45.1 % Mean Corpuscular Volume 89.5 FL Mean Corpuscular Hemoglobin 29.9 PG Mean Corpuscular Hemoglobin Concent 33.4 % Red Cell Distribution Width 14.1 % Platelet Count 169 TH/MM3 Mean Platelet Volume 8.4 FL Neutrophils (%) (Auto) 73.3 % Lymphocytes (%) (Auto) 11.1 % Monocytes (%) (Auto) 9.8 % Eosinophils (%) (Auto) 4.6 % Basophils (%) (Auto) 1.2 % Neutrophils # (Auto) 6.4 TH/MM3 Lymphocytes # (Auto) 1.0 TH/MM3 Monocytes # (Auto) 0.8 TH/MM3 Eosinophils # (Auto) 0.4 TH/MM3 Basophils # (Auto) 0.1 TH/MM3 CBC Comment DIFF FINAL Differential Comment Prothrombin Time 34.1 SEC Prothromb Time International Ratio 2.9 RATIO Activated Partial Thromboplast Time 41.1 SEC Blood Urea Nitrogen 18 MG/DL Creatinine 1.07 MG/DL Random Glucose 107 MG/DL Total Protein 6.6 GM/DL Albumin 3.5 GM/DL Calcium Level 9.0 MG/DL Magnesium Level 1.9 MG/DL Alkaline Phosphatase 69 U/L Aspartate Amino Transf (AST/SGOT) 14 U/L Alanine Aminotransferase (ALT/SGPT) 18 U/L Total Bilirubin 0.6 MG/DL Sodium Level 134 MEQ/L Potassium Level 4.0 MEQ/L Chloride Level 99 MEQ/L Carbon Dioxide Level 26.1 MEQ/L Anion Gap 9 MEQ/L Estimat Glomerular Filtration Rate 69 ML/MIN Lactic Acid Level 0.8 mmol/L Total Creatine Kinase 82 U/L Troponin I 0.03 NG/ML B-Type Natriuretic Peptide 505 PG/ML Lipase 78 U/L Thyroid Stimulating Hormone 3rd Gen 1.360 uIU/ML MDM Medical Decision Making Medical Screen Exam Complete: Yes Emergency Medical Condition: Yes Medical Record Reviewed: Yes Interpretation(s) Last Impressions Chest X-Ray 12/31/16 0506 Signed Impressions: Service Date/Time: Saturday, December 31, 2016 05:08 - CONCLUSION: 1. Left PICC line in superior vena cava. Tortuous aorta. No active disease. Cliff Kearney MD Differential Diagnosis Acute coronary syndrome, versus congestive heart failure exacerbation, versus pneumonia, versus symptomatic bradycardia Narrative Course During the course of the patients emergency department visit, the patients history, examination, and differential diagnosis were reviewed with the patient. The patient had IV access obtained and blood work sent for analysis. The patient was placed on a youth nutritional monitor with oximetry and blood pressure monitoring. An ECG was done on arrival. The patient's ECG reveals sinus rhythm heart rate of 65 with frequent ventricular premature complexes. No acute ST segment elevation. T waves are inverted in V5, V6. The patients laboratory studies were reviewed and remarkable for white count of 8.7, hemoglobin 15.1, platelets 169 with 73.3 neutrophils, monocytes 9.8. CMP is remarkable for a sodium of 134, glucose 107, AST 14, initial set of cardiac enzymes are negative, BNP is 505, lipase 78, TSH 1.36, PTT 34.1, INR 2.9, PTT 41.1 Radiology studies were reviewed and remarkable for a chest x-ray that shows a left PICC line in superior vena cava, tortuous aorta, no active cardiopulmonary disease. The patients results were discussed with the patient, including the plan of care. I explained that further testing and/ or monitoring is indicated based on the patients history, examination, and/ or laboratory findings. Therefore, I recommended admission for additional evaluation. The patient expressed understanding and was agreeable with this plan. The patient was admitted to the hospital in guarded condition and sent to a bed under the care of the [facility]. Physician Communication Physician Communication The patient's case was discussed with Dr. Damon who did agree to admit the patient for further evaluation and treatment at this time. Diagnosis Primary Impression: Chest pain, rule out acute myocardial infarction Additional Impressions: Bradycardia Congestive heart failure Qualified Codes: I50.20 - Unspecified systolic (congestive) heart failure Admitting Information Admitting Physician Requests: it Evelyn Tanner MD Dec 31, 2016 09:24
[2016-12-31] MEDS ORDERED: ASPIRIN 81 MG CHEW TAB CHEW ONE (09:30)
[2016-12-31] MEDS ORDERED: NITROGLYCERIN 2% OINT 1 GM PACKET TOPICAL ONE (09:30)
--- NOTE | 2016-12-31 10:09 | HHI.HP ---
HPI Service [facility] Primary Care Physician Nikolas Diego M.D. Admission Diagnosis Cp r/o ND, ChF exacerbation Diagnoses: Chief Complaint: Congestive heart failure symptoms worsen with milrinone. Travel History International Travel<30 Days: No Contact w/Intl Traveler <30 Da: No Traveled to Known Affected Are: No History of Present Illness Mr. Hooker is a pleasant 66-year-old male with a history of CAD, ischemic cardiomyopathy, likely LV thrombus, atrial flutter who presents to the emergency department due to worsening lower chest wall pain radiating to his lower substernal area, headache as well as shortness of breath. The symptoms have been worsening over last 1 month. He recently went to the ER at [facility] on December 20, 2016 with shortness of breath. Per patient he underwent cardiac catheterization which did not show any acute CAD. He was discharged from [facility] on milrinone drip. He reports no improvement of his symptoms while on milrinone drip. He denies any cough, fever or chills. Denies any abdominal pain. No changes in bladder or bowel habits. He follows up with Dr. Alicia in [place]. Review of Systems Except as stated in HPI: all other systems reviewed are Neg Past Family Social History Past Medical History Coronary artery disease status post 4 stents placement Ischemic cardiomyopathy status post AICD placement Ulcerative colitis Hiatal hernia Past Surgical History Hernia repair 3, AICD placement, tonsillectomy, sinus surgery, back surgery. Reported Medications Milrinone in Dextrose 20 mg/100Ml (Milrinone in Dextrose) 20 Mg/100 Ml (200 Mcg/ Ml) Inj 0.125 Mcg DAILY Warfarin 5 Mg Tab 5 Mg PO EVERY OTHER DAY Metoprolol Tartrate 25 Mg Tab 25 Mg PO DAILY Tagamet Hb (Cimetidine) 200 Mg Tab 200 Mg .ROUTE BID PRN Ambien CR (Zolpidem Tartrate) 12.5 Mg Tab 12.5 Mg .ROUTE HS PRN Warfarin 2.5 Mg Tab 2.5 Mg PO EVERY OTHER DAY Lisinopril 2.5 Mg Tab 2.5 Mg PO DAILY Aspirin 81 Mg Chew 81 Mg CHEW DAILY Allergies: Coded Allergies: clindamycin (Unverified Allergy, Severe, RASH, FEVER, 12/31/16) infliximab (Unverified Allergy, Severe, FEVER, RASH, 12/31/16) infliximab-dyyb (Unverified Allergy, Severe, FEVER, RASH, 12/31/16) penicillin G (Unverified Allergy, Severe, RASH, 12/31/16) STATES HES NOT ALLERGIC ANY MORE amiodarone (Verified Allergy, Unknown, Hypotension, 12/31/16) "MY BODY DIDN'T REACT THE RIGHT WAY TO IT" Family History Mother - digestive disease Father - COPD Social History Patient denies using tobacco, alcohol, illicit drugs. Physical Exam Vital Signs Vital Signs Date Time Temp Pulse Resp B/P (MAP) Pulse Ox O2 Delivery O2 Flow Rate FiO2 12/31/16 08:54 97 Nasal Cannula 2.00 12/31/16 07:30 46 16 108/65 (79) 99 12/31/16 06:11 60 16 110/71 (84) 97 Room Air 12/31/16 06:03 98 12/31/16 04:32 60 16 107/55 (72) 99 Nasal Cannula 2.00 12/31/16 03:21 98.1 47 20 110/60 (77) 97 Room Air Physical Exam GENERAL: This is a well-nourished, well-developed patient, in no apparent distress. On nasal cannula SKIN: No rashes, ecchymoses or lesions. Warm and dry. HEAD: Atraumatic. Normocephalic. No temporal or scalp tenderness. EYES: Pupils equal round and reactive. No injection or drainage. ENT: Nose without bleeding, purulent drainage or septal hematoma. Airway patent. NECK: Trachea midline. No lymphadenopathy. Supple, nontender, no meningeal signs. CARDIOVASCULAR: Regular rate and rhythm without murmurs, gallops, or rubs. No JVD. RESPIRATORY: Clear to auscultation. Breath sounds equal bilaterally. No wheezes , rales, or rhonchi. GASTROINTESTINAL: Abdomen soft, non-tender, nondistended. No guarding. MUSCULOSKELETAL: Extremities without clubbing, cyanosis. No lower extremity edema. NEUROLOGICAL: Awake and alert. Cranial nerves II through XII intact. No focal neurological deficits. Normal speech. Laboratory Laboratory Tests Test 12/31/16 05:50 White Blood Count 8.7 Red Blood Count 5.04 Hemoglobin 15.1 Hematocrit 45.1 Mean Corpuscular Volume 89.5 Mean Corpuscular Hemoglobin 29.9 Mean Corpuscular Hemoglobin Concent 33.4 Red Cell Distribution Width 14.1 Platelet Count 169 Mean Platelet Volume 8.4 Neutrophils (%) (Auto) 73.3 Lymphocytes (%) (Auto) 11.1 Monocytes (%) (Auto) 9.8 Eosinophils (%) (Auto) 4.6 Basophils (%) (Auto) 1.2 Neutrophils # (Auto) 6.4 Lymphocytes # (Auto) 1.0 Monocytes # (Auto) 0.8 Eosinophils # (Auto) 0.4 Basophils # (Auto) 0.1 CBC Comment DIFF FINAL Differential Comment Prothrombin Time 34.1 Prothromb Time International Ratio 2.9 Activated Partial Thromboplast Time 41.1 Blood Urea Nitrogen 18 Creatinine 1.07 Random Glucose 107 Total Protein 6.6 Albumin 3.5 Calcium Level 9.0 Magnesium Level 1.9 Alkaline Phosphatase 69 Aspartate Amino Transf (AST/SGOT) 14 Alanine Aminotransferase (ALT/SGPT) 18 Total Bilirubin 0.6 Sodium Level 134 Potassium Level 4.0 Chloride Level 99 Carbon Dioxide Level 26.1 Anion Gap 9 Estimat Glomerular Filtration Rate 69 Lactic Acid Level 0.8 Total Creatine Kinase 82 Troponin I 0.03 B-Type Natriuretic Peptide 505 Lipase 78 Thyroid Stimulating Hormone 3rd Gen 1.360 Result Diagram: 12/31/16 0550 12/31/16 0550 Imaging Last Impressions Chest X-Ray 12/31/16 0506 Signed Impressions: Service Date/Time: Saturday, December 31, 2016 05:08 - CONCLUSION: 1. Left PICC line in superior vena cava. Tortuous aorta. No active disease. Cliff Kearney MD Caprini VTE Risk Assessment Caprini VTE Risk Assessment: Mod/High Risk (score >= 2) Caprini Risk Assessment Model Point Value = 1 Point Value = 2 Point Value = 3 Point Value = 5 Age 41-60 Minor surgery BMI > 25 kg/m2 Swollen legs Varicose veins or History of unexplained or recurrent spontaneous Oral contraceptives or hormone replacement Sepsis (< 1 month) Serious lung disease, including pneumonia (< 1 month) Abnormal pulmonary function Acute myocardial infarction Congestive heart failure (< 1 month) History of inflammatory bowel disease Medical patient at bed rest Age 61-74 Arthroscopic surgery Major open surgery (> 45 min) Laparoscopic surgery (> 45 min) Malignancy Confined to bed (> 72 hours) Immobilizing plaster cast Central venous access Age >= 75 History of VTE Family history of VTE Factor V Leiden Prothrombin [id number] Lupus anticoagulant Anticardiolipin antibodies Elevated serum homocysteine Heparin-induced thrombocytopenia Other congenital or acquired thrombophilia Stroke (< 1 month) Elective arthroplasty Hip, pelvis, or leg fracture Acute spinal cord injury (< 1 month) Prophylaxis Regimen Total Risk Factor Score Risk Level Prophylaxis Regimen 0-1 Low Early ambulation 2 Moderate Order ONE of the following: *Sequential Compression Device (SCD) *Heparin 5000 units SQ BID 3-4 Higher Order ONE of the following medications: *Heparin 5000 units SQ TID *Enoxaparin/Lovenox 40 mg SQ daily (WT < 150 kg, CrCl > 30 mL/min) *Enoxaparin/Lovenox 30 mg SQ daily (WT < 150 kg, CrCl > 10-29 mL/min) *Enoxaparin/Lovenox 30 mg SQ BID (WT < 150 kg, CrCl > 30 mL/min) AND/OR *Sequential Compression Device (SCD) 5 or more Highest Order ONE of the following medications: *Heparin 5000 units SQ TID (Preferred with Epidurals) *Enoxaparin/Lovenox 40 mg SQ daily (WT < 150 kg, CrCl > 30 mL/min) *Enoxaparin/Lovenox 30 mg SQ daily (WT < 150 kg, CrCl > 10-29 mL/min) *Enoxaparin/Lovenox 30 mg SQ BID (WT < 150 kg, CrCl > 30 mL/min) AND *Sequential Compression Device (SCD) Assessment and Plan Problem List: (1) Congestive heart failure ICD Code: I50.9 - Congestive heart failure Status: Acute (2) CAD (coronary artery disease) ICD Code: I25.10 - CAD (coronary artery disease) Status: Chronic (3) Atrial flutter ICD Code: I48.92 - Unspecified atrial flutter Status: Acute Assessment and Plan Mr. Hooker is a pleasant 66-year-old male with a history of CAD, ICM , atrial flutter, probable LV thrombus who presents to the emergency department due to lower chest wall pain right more than left radiating to his lower part of the substernal area. He also complains of headache. Given that his symptoms started about a month ago, his symptoms are worsening. He was recently admitted to [facility] on 12/20/2016 and was discharged on milrinone drip. Patient underwent cardiac catheterization without any intervention at [facility]. He follows up with Dr. Alicia (EP) in [place] and follows up with [facility] heart transplant unit. His transplant surgeon at [facility] is Dr. Cast. - Coronary artery disease with previous stent placement - Chronic systolic congestive heart failure - Severe ischemic cardiomyopathy - Patient's last echo on 09/25/2016 --> Technically difficult study. EF 20-25% , diffuse global hypokinesis. - Currently on Aspirin 81mg Qday, Metoprolol tartrate 25mg Qday, Lisinopril 2.5mg Qday. - Will switch metoprolol tartrate to metoprolol succinate. Continue lisinopril. - Will request records from [facility] including cath report, progress notes and echo report. - Cardiology consult pending. - Patient's HF is consistent with NYHA Class II symptoms. Milrinone may not be very helpful and in fact can be harmful. - Discussed at length with transplant surgeon Dr. Cast from [facility] who agreed with discontinuing Milrinone. - Depending on the dosage pt is on, we will either taper off or stop Milrinone. - Hx of Probable LV thrombus - Hx of Atrial flutter - Will continue Metoprolol - Continue Warfarin. INR 2.9 today. - Headache - Insomnia - Will try Acetaminophen. If that does not work, we will try Fioricet. - Ambien 10mg QHS for insomnia (home med). Full code. Warfarin. INR 2.9. Discussed Condition With Discussed with Cardiology at [place], Transplant surgeon at [facility]. Physician Certification 2 Midnight Certification Type: Admission for Inpatient Services Order for Inpatient Services The services are ordered in accordance with Medicare regulations or non- Medicare payer requirements, as applicable. In the case of services not specified as inpatient-only, they are appropriately provided as inpatient services in accordance with the 2-midnight benchmark. Estimated LOS (days): 2 days is the estimated time the patient will need to remain in the hospital, assuming treatment plan goals are met and no additional complications. Post-Hospital Plan: Home Iris Damon DO Dec 31, 2016 10:09 am
[2016-12-31] MEDS ORDERED: PILL SPLITTER OTHER PRN (12:45)
[2016-12-31] MEDS ORDERED: ACETAMIN 325 MG/BUTALBITAL 50 MG/CAFFEINE 40 MG TAB PO PRN (13:45)
[2016-12-31 14:17] LABS: BLOOD, URINE MOD (NEG); COMMENT (UR) CULT NOT INDICATED; CULTURE IF INDICATED CULT NOT INDICATED; GLUCOSE,URINE NEG (NEG); KETONE, URINE NEG (NEG); NITRITE,URINE NEG (NEG); SQUAMOUS EPITHELIAL CELL URINE <1 /hpf (0-5); URINE COLOR YELLOW (YELLW/STRAW)
[2016-12-31] MEDS ORDERED: TAMSULOSIN HCL 0.4 MG CAP PO ONE (14:45)
[2016-12-31] MEDS: WARFARIN SOD 5 MG TAB PO SCH (16:00)
[2016-12-31] MEDS ORDERED: CYCLOBENZAPRINE HCL 10 MG TAB PO ONE (17:45)
[2016-12-31] MEDS ORDERED: oxyCODONE/ACETAMINOPHEN 7.5 MG/325 MG TAB PO ONE (17:45)
[2016-12-31] MEDS: ZOLPIDEM TARTRATE 10 MG TAB PO PRN (20:05)
--- NOTE | 2016-12-31 20:59 | MB ---
cc: SPARKLE LIRIANO M.D. DATE OF CONSULTATION: 12/31/2016 REASON FOR CONSULTATION: Heart failure. HISTORY OF PRESENT ILLNESS: Mr. Hooker is a 66-year-old gentleman with coronary artery disease, cardiomyopathy, episode of atrial fibrillation, atrial tachycardia, not a candidate for heart transplant, end-stage heart disease, multiple previous hospitalizations, admitted to the emergency room due to shortness of breath and dizziness on minimal activity and headache. The chart was reviewed. The patient was evaluated. ALLERGIES AMIODARONE CLINDAMYCIN INFLIXIMAB INFLIXIMAB-DYYB PENICILLIN SOCIAL HISTORY The patient is negative for smoking and drinking. FAMILY HISTORY Noncontributory to his current medical condition. MEDICATIONS 1. Coumadin. 2. Metoprolol 3. Lisinopril. 4. Aspirin. REVIEW OF SYSTEMS Currently refers headache and shortness of breath on minimal activity but no chest pain or discomfort. PHYSICAL EXAMINATION: Alert, fully oriented. VITAL SIGNS: Blood pressure is 102/77, pulse 61, respiratory rate 20. LUNGS: Ventilated. CARDIOVASCULAR: S1-S2, regular, no gallop. ABDOMEN: Soft, no masses. No bruits. EXTREMITIES: No edema. Electrocardiogram: Sinus rhythm, PACs, PVCs. Diffuse ST changes. LABORATORY DATA: Hemoglobin is 15.1, white blood cell 8.7, potassium 4.0, creatinine is 1.07, troponin 0.03. BNP 500. INR 2.9. ASSESSMENT AND RECOMMENDATIONS Mr. Hooker has end stage heart disease. He is not a candidate for transplant. Apparently recently he was in the ER and was on milrinone. He was discharged home. His troponin is 0.03. This is not acute heart failure. He has chronic failure and decompensated heart. There is no need to re-initiate milrinone. He is complaining about headache and dizziness when standing. His systolic blood pressure is 102. Blood pressure supine and standing need to be measured. RECOMMENDATIONS Continue with current management. When the patient is stable he can be can be discharged home. Again this is a end-stage heart disease patient. Sparkle Liriano MD /WIN /6:22 PM /8:14 PM
--- NOTE | 2016-12-31 21:15 | EKG ---
Date Performed: 12/31/2016 Time Performed: 04:10:49 PTAGE: 66 years EKG: Sinus rhythm WITH FIRST DEGREE AV BLOCK WITH FREQUENT VENTRICULAR PREMATURE COMPLEXES ANTERIOR MYOCARDIAL INFARCT ION, OLD Compared to prior tracing no significant change DOCTOR: Adore Cherry Interpretating Date/Time 12/31/2016 21:14:32
[2017-01-01] VITALS (25 sets, daily range): BP systolic 96–110; BP diastolic 54–68; PULSE 60–96; RESP 18–20; TEMP 97.6–98.5; O2SAT 96–98
[2017-01-01] MEDS: ACETAMINOPHEN 325 MG TAB PO PRN ×2 (07:47→21:34)
[2017-01-01] MEDS: DOCUSATE SODIUM 50 MG/SENNA 8.6 MG TAB PO SCH ×2 (09:00→21:32)
[2017-01-01] MEDS ORDERED: METOPROLOL SUCCINATE 25 MG EXTENDED RELEASE TAB PO SCH (09:00)
[2017-01-01] MEDS ORDERED: LISINOPRIL 5 MG TAB PO SCH ×2 (09:00)
[2017-01-01] MEDS: TAMSULOSIN HCL 0.4 MG CAP PO SCH (09:12)
[2017-01-01] MEDS: ASPIRIN 81 MG CHEW TAB CHEW SCH (09:13)
[2017-01-01] MEDS: METOPROLOL SUCCINATE 25 MG EXTENDED RELEASE TAB PO SCH (09:14)
[2017-01-01] MEDS: SODIUM CHLORIDE 0.9% FLUSH 10 ML FLUSH IV FLUSH SCH ×2 (09:16→21:00)
--- NOTE | 2017-01-01 10:05 | HHI.PR ---
Subjective Remarks Follow up for systolic heart failure. Patient complains of headache. He also feels somewhat dizzy and lightheaded when he walks. No CP, SOB or fever/chills. Objective Vitals Vital Signs Date Time Temp Pulse Resp B/P (MAP) Pulse Ox O2 Delivery O2 Flow Rate FiO2 01/01/17 09:11 18 01/01/17 07:00 97.6 96 18 110/66 (81) 96 01/01/17 07:00 Room Air 01/01/17 07:00 79 01/01/17 06:00 63 01/01/17 05:00 64 01/01/17 04:41 Room Air 01/01/17 04:00 98.2 60 18 96/54 (68) 97 01/01/17 04:00 61 01/01/17 03:00 60 01/01/17 02:00 63 01/01/17 01:00 64 01/01/17 00:00 98.1 62 20 97/62 (74) 97 01/01/17 00:00 62 01/01/17 00:00 Room Air 12/31/16 23:00 67 12/31/16 22:00 63 12/31/16 21:00 65 12/31/16 20:00 98.4 66 20 94/65 (75) 98 12/31/16 20:00 66 12/31/16 20:00 Room Air 12/31/16 18:38 66 12/31/16 17:35 97 Nasal Cannula 2.00 12/31/16 17:00 72 12/31/16 16:00 70 12/31/16 15:00 66 12/31/16 15:00 98.2 61 17 102/77 (85) 67 12/31/16 14:00 64 12/31/16 13:00 72 12/31/16 12:46 I/O 12/31/16 12/31/16 12/31/16 01/01/17 01/01/17 01/01/17 07:00 15:00 23:00 07:00 15:00 23:00 Intake Total 400 ml 250 ml Output Total 200 ml 500 ml Balance 200 ml -250 ml Intake Oral 400 ml 240 ml IV Total 10 ml Output Urine Total 200 ml 500 ml # Bowel Movements 0 0 Result Diagram: 12/31/16 0550 12/31/16 0550 Imaging Last Impressions Chest X-Ray 12/31/16 0506 Signed Impressions: Service Date/Time: Saturday, December 31, 2016 05:08 - CONCLUSION: 1. Left PICC line in superior vena cava. Tortuous aorta. No active disease. Cliff Kearney MD Objective Remarks GENERAL: AOX3, NAD. SKIN: Warm and dry. HEAD: Normocephalic. EYES: No scleral icterus. No injection or drainage. NECK: Supple, trachea midline. No JVD or lymphadenopathy. CARDIOVASCULAR: Regular rate and rhythm without murmurs, gallops, or rubs. RESPIRATORY: Breath sounds equal bilaterally. No accessory muscle use. GASTROINTESTINAL: Abdomen soft, non-tender, nondistended. MUSCULOSKELETAL: No cyanosis, or edema. BACK: Nontender without obvious deformity. No CVA tenderness. Procedures None. A/P Problem List: (1) Congestive heart failure ICD Code: I50.9 - Congestive heart failure Status: Acute (2) CAD (coronary artery disease) ICD Code: I25.10 - CAD (coronary artery disease) Status: Chronic (3) Atrial flutter ICD Code: I48.92 - Unspecified atrial flutter Status: Acute Assessment and Plan Mr. Hooker is a pleasant 66-year-old male with a history of CAD, ICM , atrial flutter, probable LV thrombus who presents to the emergency department due to lower chest wall pain right more than left radiating to his lower part of the substernal area. He also complains of headache. Given that his symptoms started about a month ago, his symptoms are worsening. He was recently admitted to [facility] on 12/20/2016 and was discharged on milrinone drip. Patient underwent cardiac catheterization without any intervention at [facility]. He follows up with Dr. Alicia (EP) in [place] and follows up with [facility] heart transplant unit. His transplant surgeon at [facility] is Dr. Cats. - Coronary artery disease with previous stent placement - Chronic systolic congestive heart failure - Severe ischemic cardiomyopathy - Patient's last echo on 09/25/2016 --> Technically difficult study. EF 20-25% , diffuse global hypokinesis. - Currently on Aspirin 81mg Qday, Metoprolol tartrate 12.5 mg Qday, Lisinopril 5mg Qday. - Will request records from [facility] including cath report, progress notes and echo report. - Cardiology consulted - stated patient has end stage heart failure and not a candidate for heart transplant. - Patient's HF is consistent with NYHA Class II symptoms. No further milrinone. - Discussed at length with transplant surgeon Dr. Cast from [facility] on 12/31/2016 who agreed with discontinuing Milrinone. - Advised patient to see [facility] heart failure program if possible. - Hx of Probable LV thrombus - Hx of Atrial flutter - Will continue Metoprolol 12.5mg Qday. - Continue Warfarin. INR 2.9 on 12/31/2016. - Headache - Insomnia - Per patient, only Percocet helps with headache. I informed him that too much opioids can cause headache as well. - Will continue Percocet for symptom control for now. - Ambien 10mg QHS for insomnia (home med). Full code. Warfarin. Iris Damon DO Jan 01, 2017 10:05 am
[2017-01-01] MEDS: oxyCODONE/ACETAMINOPHEN 5 MG/325 MG TAB PO PRN ×2 (11:22→17:23)
--- NOTE | 2017-01-01 14:31 | HHI.PR ---
Subjective Remarks Some SOB Objective Vital Signs Date Time Temp Pulse Resp B/P (MAP) Pulse Ox O2 Delivery O2 Flow Rate FiO2 01/01/17 13:43 80 01/01/17 12:22 18 01/01/17 12:00 74 01/01/17 11:45 98.5 60 18 100/65 (77) 97 01/01/17 11:45 92 01/01/17 10:05 73 01/01/17 09:11 18 01/01/17 09:00 80 01/01/17 08:00 84 01/01/17 07:00 97.6 96 18 110/66 (81) 96 01/01/17 07:00 Room Air 01/01/17 07:00 79 01/01/17 06:00 63 01/01/17 05:00 64 01/01/17 04:41 Room Air 01/01/17 04:00 98.2 60 18 96/54 (68) 97 01/01/17 04:00 61 01/01/17 03:00 60 01/01/17 02:00 63 01/01/17 01:00 64 01/01/17 00:00 98.1 62 20 97/62 (74) 97 01/01/17 00:00 62 01/01/17 00:00 Room Air 12/31/16 23:00 67 12/31/16 22:00 63 12/31/16 21:00 65 12/31/16 20:00 98.4 66 20 94/65 (75) 98 12/31/16 20:00 66 12/31/16 20:00 Room Air 12/31/16 18:38 66 12/31/16 17:35 97 Nasal Cannula 2.00 12/31/16 17:00 72 12/31/16 16:00 70 12/31/16 15:00 66 12/31/16 15:00 98.2 61 17 102/77 (85) 67 I/O 12/31/16 12/31/16 12/31/16 01/01/17 01/01/17 01/01/17 07:00 15:00 23:00 07:00 15:00 23:00 Intake Total 400 ml 250 ml Output Total 200 ml 500 ml Balance 200 ml -250 ml Intake Oral 400 ml 240 ml IV Total 10 ml Output Urine Total 200 ml 500 ml # Bowel Movements 0 0 Result Diagram: 12/31/16 0550 12/31/16 0550 Imaging Alert, oriented, in bed, complaining about his head feels heavy Lungs: ventilated Heart: S1, S2 regular Abdomen: soft, no mass Ext: no edema Last Impressions Chest X-Ray 12/31/16 0506 Signed Impressions: Service Date/Time: Saturday, December 31, 2016 05:08 - CONCLUSION: 1. Left PICC line in superior vena cava. Tortuous aorta. No active disease. Cliff Keraney MD Current Medications Medications (Trade) Dose Ordered Sig/Ami Route Start Time Stop Time Status Last Admin (NS Flush) 2 ml UNSCH PRN IV FLUSH 12/31/16 09:00 (NS Flush) 2 ml BID IV FLUSH 12/31/16 09:00 01/01/17 09:16 (Tylenol) 650 mg Q4H PRN PO 12/31/16 09:00 01/01/17 07:47 (Zofran Inj) 4 mg Q6H PRN IVP 12/31/16 09:00 (Narcan Inj) 0.4 mg UNSCH PRN IV 12/31/16 09:00 (Radha-Colace) 1 tab BID PO 12/31/16 09:00 01/01/17 09:00 (Milk Of Magnesia Liq) 30 ml Q12H PRN PO 12/31/16 09:00 (Senokot) 17.2 mg Q12H PRN PO 12/31/16 09:00 (Dulcolax Supp) 10 mg DAILY PRN RECTAL 12/31/16 09:00 (Lactulose Liq) 30 ml DAILY PRN PO 12/31/16 09:00 (Aspirin Chew) 81 mg DAILY CHEW 01/01/17 09:00 01/01/17 09:13 (Pill Splitter) 1 ea UNSCH PRN OTHER 12/31/16 12:45 (Toprol Xl) 12.5 mg DAILY PO 01/01/17 09:00 01/01/17 09:14 (Flomax) 0.4 mg DAILY PO 01/01/17 09:00 01/01/17 09:12 (Ambien) 10 mg HS PRN PO 12/31/16 14:45 12/31/16 20:05 (Coumadin) 5 mg MoWeFr@16 PO 12/31/16 16:00 12/31/16 16:00 (Percocet 5-325 Mg) 1 tab Q6H PRN PO 01/01/17 10:15 01/01/17 11:22 (Prinivil) 10 mg DAILY PO 01/02/17 09:00 Assessment and Plan Problem List: (1) Congestive heart failure ICD Codes: I50.9 - Congestive heart failure Status: Acute Plan: On optimal medical management. Not a candidate for milrinone Endstage heart disease Continue with current management Poor prognosis (2) Hypertension ICD Codes: I10 - Hypertension Status: Acute Plan: SBP 100 (3) Ischemic cardiomyopathy ICD Codes: I25.5 - Ischemic cardiomyopathy Status: Acute Plan: No significant chest pain Not a candidate for revascularization Joan Alicia MD Jan 01, 2017 14:31
[2017-01-01] MEDS: ZOLPIDEM TARTRATE 10 MG TAB PO PRN (21:32)
[2017-01-02] VITALS (30 sets, daily range): BP systolic 97–106; BP diastolic 62–78; PULSE 62–205; RESP 18–20; TEMP 97.8–98.4; O2SAT 97–98
[2017-01-02] MEDS: oxyCODONE/ACETAMINOPHEN 5 MG/325 MG TAB PO PRN ×2 (07:55→14:27)
[2017-01-02] MEDS: METOPROLOL SUCCINATE 25 MG EXTENDED RELEASE TAB PO SCH (08:22)
[2017-01-02] MEDS: SODIUM CHLORIDE 0.9% FLUSH 10 ML FLUSH IV FLUSH SCH ×2 (08:23→21:13)
[2017-01-02] MEDS: ASPIRIN 81 MG CHEW TAB CHEW SCH (08:23)
[2017-01-02] MEDS: TAMSULOSIN HCL 0.4 MG CAP PO SCH (08:23)
[2017-01-02] MEDS: LISINOPRIL 10 MG TAB PO SCH (08:23)
[2017-01-02] MEDS: DOCUSATE SODIUM 50 MG/SENNA 8.6 MG TAB PO SCH ×2 (08:24→21:13)
--- NOTE | 2017-01-02 09:15 | HHI.PR ---
Subjective Remarks Follow-up for severe ischemic cardiomyopathy. Patient is currently in room air. No chest pain, shortness of breath. However he still feels dizzy and lightheaded. No fever or chills. Objective Vitals Vital Signs Date Time Temp Pulse Resp B/P (MAP) Pulse Ox O2 Delivery O2 Flow Rate FiO2 01/02/17 08:57 98 01/02/17 06:00 74 01/02/17 05:00 74 01/02/17 04:00 62 01/02/17 03:00 97.8 71 18 106/68 (81) 97 01/02/17 03:00 70 01/02/17 02:00 68 01/02/17 01:00 74 01/02/17 00:00 64 01/01/17 23:00 66 01/01/17 23:00 97.9 74 20 100/66 (77) 98 01/01/17 22:00 92 01/01/17 21:00 72 01/01/17 20:30 Room Air 01/01/17 20:00 98.3 94 20 110/64 (79) 98 01/01/17 20:00 94 01/01/17 19:00 82 01/01/17 18:24 19 01/01/17 18:00 79 01/01/17 17:00 80 01/01/17 16:00 80 01/01/17 15:40 97.8 65 20 98/68 (78) 98 Manual Cuff/Doppler 01/01/17 15:00 77 01/01/17 14:00 82 01/01/17 13:43 80 01/01/17 12:00 74 01/01/17 11:45 98.5 60 18 100/65 (77) 97 01/01/17 11:45 92 01/01/17 10:05 73 I/O 01/01/17 01/01/17 01/01/17 01/02/17 01/02/17 01/02/17 07:00 15:00 23:00 07:00 15:00 23:00 Intake Total 250 ml 360 ml 480 ml Output Total 500 ml 585 ml Balance -250 ml -225 ml 480 ml Intake Oral 240 ml 360 ml 480 ml IV Total 10 ml Output Urine Total 500 ml 585 ml # Voids 1 # Bowel Movements 0 0 Result Diagram: 12/31/16 0550 12/31/16 0550 Imaging Last Impressions Chest X-Ray 12/31/16 0506 Signed Impressions: Service Date/Time: Saturday, December 31, 2016 05:08 - CONCLUSION: 1. Left PICC line in superior vena cava. Tortuous aorta. No active disease. Cliff Kearney MD Objective Remarks GENERAL: AOX3, NAD. SKIN: Warm and dry. HEAD: Normocephalic. EYES: No scleral icterus. No injection or drainage. NECK: Supple, trachea midline. No JVD or lymphadenopathy. CARDIOVASCULAR: Regular rate and rhythm without murmurs, gallops, or rubs. RESPIRATORY: Breath sounds equal bilaterally. No accessory muscle use. GASTROINTESTINAL: Abdomen soft, non-tender, nondistended. MUSCULOSKELETAL: No cyanosis, or edema. BACK: Nontender without obvious deformity. No CVA tenderness. Procedures None. A/P Problem List: (1) Congestive heart failure ICD Code: I50.9 - Congestive heart failure Status: Acute (2) CAD (coronary artery disease) ICD Code: I25.10 - CAD (coronary artery disease) Status: Chronic (3) Atrial flutter ICD Code: I48.92 - Unspecified atrial flutter Status: Acute Assessment and Plan Mr. Hooker is a pleasant 66-year-old male with a history of CAD, ICM , atrial flutter, probable LV thrombus who presents to the emergency department due to lower chest wall pain right more than left radiating to his lower part of the substernal area. He also complains of headache. Given that his symptoms started about a month ago, his symptoms are worsening. He was recently admitted to [facility] on 12/20/2016 and was discharged on milrinone drip. Patient underwent cardiac catheterization without any intervention at [facility]. He follows up with Dr. Alicia (EP) in [place] and follows up with [facility] heart transplant unit. His transplant surgeon at [facility] is Dr. Cast. - Coronary artery disease with previous stent placement - Chronic systolic congestive heart failure - Severe ischemic cardiomyopathy - Patient's last echo on 09/25/2016 --> Technically difficult study. EF 20-25% , diffuse global hypokinesis. - Currently on Aspirin 81mg Qday, Metoprolol tartrate 12.5 mg Qday, Lisinopril 5mg Qday. - Will request records from [facility] including cath report, progress notes and echo report. - Cardiology consulted - stated patient has end stage heart failure and not a candidate for heart transplant. - Patient's HF is consistent with NYHA Class II symptoms. No further milrinone. - Discussed at length with transplant surgeon Dr. Cast from [facility] on 12/31/2016 who agreed with discontinuing Milrinone. - Reviewed echocardiogram done at [facility] - shows ejection fraction 5-10%. - Patient is advised to follow-up with heart failure program at [facility]. Also he agrees to discuss with palliative care team at [place]. - Hx of Probable LV thrombus - Hx of Atrial flutter - Will continue Metoprolol 12.5mg Qday. - Continue Warfarin. INR 2.9 on 12/31/2016. - Headache - Insomnia - Per patient, only Percocet helps with headache. I informed him that too much opioids can cause headache as well. - Will continue Percocet for symptom control for now. - Ambien 10mg QHS for insomnia (home med). Full code. Warfarin. Will check INR tomorrow morning. Likely discharge to Rehab on 01/03/2017. Iris Damon DO Jan 02, 2017 9:15 am
[2017-01-02] MEDS: WARFARIN SOD 5 MG TAB PO SCH (16:09)
[2017-01-02] MEDS: ACETAMINOPHEN 325 MG TAB PO PRN (16:11)
--- NOTE | 2017-01-02 16:22 | HHI.PR ---
Subjective Remarks Tired Objective Vital Signs Date Time Temp Pulse Resp B/P (MAP) Pulse Ox O2 Delivery O2 Flow Rate FiO2 01/02/17 15:43 98.2 88 20 102/78 (86) 98 01/02/17 15:00 91 01/02/17 14:08 98.0 65 20 97/71 (80) 98 01/02/17 14:00 76 01/02/17 13:00 76 01/02/17 12:00 88 01/02/17 11:00 86 01/02/17 10:35 98.0 65 20 97/71 (80) 98 01/02/17 10:17 205 01/02/17 10:00 88 01/02/17 09:56 Room Air 01/02/17 09:55 72 01/02/17 09:00 70 01/02/17 08:57 98 01/02/17 08:00 74 01/02/17 07:00 70 01/02/17 07:00 65 01/02/17 06:00 74 01/02/17 05:00 74 01/02/17 04:00 62 01/02/17 03:00 97.8 71 18 106/68 (81) 97 01/02/17 03:00 70 01/02/17 02:00 68 01/02/17 01:00 74 01/02/17 00:00 64 01/01/17 23:00 66 01/01/17 23:00 97.9 74 20 100/66 (77) 98 01/01/17 22:00 92 01/01/17 21:00 72 01/01/17 20:30 Room Air 01/01/17 20:00 98.3 94 20 110/64 (79) 98 01/01/17 20:00 94 01/01/17 19:00 82 01/01/17 18:24 19 01/01/17 18:00 79 01/01/17 17:00 80 I/O 01/01/17 01/01/17 01/01/17 01/02/17 01/02/17 01/02/17 07:00 15:00 23:00 07:00 15:00 23:00 Intake Total 250 ml 360 ml 480 ml Output Total 500 ml 585 ml Balance -250 ml -225 ml 480 ml Intake Oral 240 ml 360 ml 480 ml IV Total 10 ml Output Urine Total 500 ml 585 ml # Voids 1 # Bowel Movements 0 0 Result Diagram: 12/31/16 0550 12/31/16 0550 Imaging Alert, fully oriented Lungs: ventilated Heart: s1, S2 regular, no gallop Abdomen: soft, no mass Ext: no edema Last Impressions Chest X-Ray 12/31/16 0506 Signed Impressions: Service Date/Time: Saturday, December 31, 2016 05:08 - CONCLUSION: 1. Left PICC line in superior vena cava. Tortuous aorta. No active disease. Cliff Kearney MD Current Medications Medications (Trade) Dose Ordered Sig/Ami Route Start Time Stop Time Status Last Admin (NS Flush) 2 ml UNSCH PRN IV FLUSH 12/31/16 09:00 (NS Flush) 2 ml BID IV FLUSH 12/31/16 09:00 01/02/17 08:23 (Tylenol) 650 mg Q4H PRN PO 12/31/16 09:00 01/02/17 16:11 (Zofran Inj) 4 mg Q6H PRN IVP 12/31/16 09:00 (Narcan Inj) 0.4 mg UNSCH PRN IV 12/31/16 09:00 (Radha-Colace) 1 tab BID PO 12/31/16 09:00 01/02/17 08:24 (Milk Of Magnesia Liq) 30 ml Q12H PRN PO 12/31/16 09:00 (Senokot) 17.2 mg Q12H PRN PO 12/31/16 09:00 (Dulcolax Supp) 10 mg DAILY PRN RECTAL 12/31/16 09:00 (Lactulose Liq) 30 ml DAILY PRN PO 12/31/16 09:00 (Aspirin Chew) 81 mg DAILY CHEW 01/01/17 09:00 01/02/17 08:23 (Pill Splitter) 1 ea UNSCH PRN OTHER 12/31/16 12:45 (Toprol Xl) 12.5 mg DAILY PO 01/01/17 09:00 01/01/17 09:14 (Flomax) 0.4 mg DAILY PO 01/01/17 09:00 01/02/17 08:23 (Ambien) 10 mg HS PRN PO 12/31/16 14:45 01/01/17 21:32 (Coumadin) 5 mg MoWeFr@16 PO 12/31/16 16:00 01/02/17 16:09 (Percocet 5-325 Mg) 1 tab Q6H PRN PO 01/01/17 10:15 01/02/17 14:27 (Prinivil) 10 mg DAILY PO 01/02/17 09:00 Assessment and Plan Problem List: (1) Congestive heart failure ICD Codes: I50.9 - Congestive heart failure Status: Acute Plan: Stable cannot tolerate milrinone Endstage heart disease. Ok to DH I will be available on a PRN basis Follow up heart failure team at . (2) Hypertension ICD Codes: I10 - Hypertension Status: Acute Plan: SBP 102 (3) Ischemic cardiomyopathy ICD Codes: I25.5 - Ischemic cardiomyopathy Status: Acute Plan: No significant chest pain Not a candidate for revascularization Joan Alicia MD Jan 02, 2017 16:22
--- NOTE | 2017-01-02 17:33 | PD.CONS ---
Consult Service Palliative Care Consult Requested By Dr. Damon Primary Care Physician Nikolas Diego M.D. Reason for Consultation a. To assist with evaluation and management of symptoms including: Dyspnea, chest pain, dizziness b. To assist medical decision maker(s) with: better understanding of current medical conditions; weighing benefits/burdens of medical treatment options; making medical treatment decisions. HPI History of Present Illness This is a 66-year-old male with a history of end-stage heart disease, coronary artery disease, cardiomyopathy, atrial fibrillation, atrial tachycardia , previously worked up at [facility] for heart transplantation, per Dr. Alicia' s note, not a candidate for heart transplant. The patient is unaware of that determination. He states that to his knowledge he had completed the workup but had no knowledge of any further outcome. He states that he learned today that there was no further interventions available to him. He has been frequently treated with milrinone to assist through exacerbations of heart failure. His most recent echocardiogram shows an ejection fraction of 20-25%. He has symptoms of continual dizziness for the last several months with adequate blood pressure. Clinical findings show WBC 8.7, hemoglobin 15.1, hematocrit 5.1, platelets 169, PT 34.1, INR 2.9, sodium 134, potassium 4.0, BUN 18, creatinine 1.07, troponin 0.03. Function/Cognitive Trajectory He is having difficulty with his daily activities due to dizziness and shortness of breath. This is been progressive over the past year. He does note increasing fatigue and difficulty organizing his thoughts. Past Family Social History Coded Allergies: clindamycin (Unverified Allergy, Severe, RASH, FEVER, 12/31/16) infliximab (Unverified Allergy, Severe, FEVER, RASH, 12/31/16) infliximab-dyyb (Unverified Allergy, Severe, FEVER, RASH, 12/31/16) penicillin G (Unverified Allergy, Severe, RASH, 12/31/16) STATES HES NOT ALLERGIC ANY MORE amiodarone (Verified Allergy, Unknown, Hypotension, 12/31/16) "MY BODY DIDN'T REACT THE RIGHT WAY TO IT" Past Medical History Coronary artery disease status post 4 stents placement Ischemic cardiomyopathy status post AICD placement Ulcerative colitis Hiatal hernia Past Surgical History Hernia repair 3, AICD placement Tonsillectomy Sinus surgery Back surgery. Reported Medications Reported Meds & Active Scripts Active Reported Milrinone in Dextrose 20 mg/100Ml (Milrinone in Dextrose) 20 Mg/100 Ml (200 Mcg/ Ml) Inj 0.125 Mcg DAILY Warfarin 5 Mg Tab 5 Mg PO EVERY OTHER DAY Metoprolol Tartrate 25 Mg Tab 25 Mg PO DAILY Tagamet Hb (Cimetidine) 200 Mg Tab 200 Mg .ROUTE BID PRN Ambien CR (Zolpidem Tartrate) 12.5 Mg Tab 12.5 Mg .ROUTE HS PRN Warfarin 2.5 Mg Tab 2.5 Mg PO EVERY OTHER DAY Lisinopril 2.5 Mg Tab 2.5 Mg PO DAILY Aspirin 81 Mg Chew 81 Mg CHEW DAILY Current Medications Medications (Trade) Dose Ordered Sig/Ami Route Start Time Stop Time Status Last Admin (NS Flush) 2 ml UNSCH PRN IV FLUSH 12/31/16 09:00 (NS Flush) 2 ml BID IV FLUSH 12/31/16 09:00 01/02/17 08:23 (Tylenol) 650 mg Q4H PRN PO 12/31/16 09:00 01/02/17 16:11 (Zofran Inj) 4 mg Q6H PRN IVP 12/31/16 09:00 (Narcan Inj) 0.4 mg UNSCH PRN IV 12/31/16 09:00 (Radha-Colace) 1 tab BID PO 12/31/16 09:00 01/02/17 08:24 (Milk Of Magnesia Liq) 30 ml Q12H PRN PO 12/31/16 09:00 (Senokot) 17.2 mg Q12H PRN PO 12/31/16 09:00 (Dulcolax Supp) 10 mg DAILY PRN RECTAL 12/31/16 09:00 (Lactulose Liq) 30 ml DAILY PRN PO 12/31/16 09:00 (Aspirin Chew) 81 mg DAILY CHEW 01/01/17 09:00 01/02/17 08:23 (Pill Splitter) 1 ea UNSCH PRN OTHER 12/31/16 12:45 (Toprol Xl) 12.5 mg DAILY PO 01/01/17 09:00 01/01/17 09:14 (Flomax) 0.4 mg DAILY PO 01/01/17 09:00 01/02/17 08:23 (Ambien) 10 mg HS PRN PO 12/31/16 14:45 01/01/17 21:32 (Coumadin) 5 mg MoWeFr@16 PO 12/31/16 16:00 01/02/17 16:09 (Percocet 5-325 Mg) 1 tab Q6H PRN PO 01/01/17 10:15 01/02/17 14:27 (Prinivil) 10 mg DAILY PO 01/02/17 09:00 Family History Mother - digestive disease Father - COPD Substance Use Tobacco: Denies Alcohol: Denies Prescription med abuse: Denies Illicits: Denies Psychosocial History This is a 66-year-old male previously lived in [place], currently resides in [place], . He states that he learned today that he has end-stage heart disease with no further interventions available and at this time does not wish to talk. Spiritual/Cultural Factors Paper Steamer available. Living Will: Copy in medical record Health Care Surrogate: Never completed Durable Power of Rat Exterminator: Never completed Documented care wishes: He states he would wish his to make his decisions in case he was incapacitated. As he just received the news of no further interventions available for treatment, he wishes to go home and consider his options, follow- up with Dr. Alicia next week and discuss end-of-life care and discontinuation of the defibrillator. Physical Exam Vital Signs Date Time Temp Pulse Resp B/P (MAP) Pulse Ox O2 Delivery O2 Flow Rate FiO2 01/02/17 16:00 90 01/02/17 15:43 98.2 88 20 102/78 (86) 98 01/02/17 15:00 91 01/02/17 14:08 98.0 65 20 97/71 (80) 98 01/02/17 14:00 76 01/02/17 13:00 76 01/02/17 12:00 88 01/02/17 11:00 86 01/02/17 10:35 98.0 65 20 97/71 (80) 98 01/02/17 10:17 205 01/02/17 10:00 88 01/02/17 09:56 Room Air 01/02/17 09:55 72 01/02/17 09:00 70 01/02/17 08:57 98 01/02/17 08:00 98.4 71 18 104/62 (76) 97 01/02/17 08:00 74 01/02/17 07:00 70 01/02/17 07:00 65 01/02/17 06:00 74 01/02/17 05:00 74 01/02/17 04:00 62 01/02/17 03:00 97.8 71 18 106/68 (81) 97 01/02/17 03:00 70 01/02/17 02:00 68 01/02/17 01:00 74 01/02/17 00:00 64 01/01/17 23:00 66 01/01/17 23:00 97.9 74 20 100/66 (77) 98 01/01/17 22:00 92 01/01/17 21:00 72 01/01/17 20:30 Room Air 01/01/17 20:00 98.3 94 20 110/64 (79) 98 01/01/17 20:00 94 01/01/17 19:00 82 01/01/17 18:24 19 01/01/17 18:00 79 01/01/17 17:00 80 Exam CONSTITUTIONAL/GENERAL: This is an adequately nourished patient, in no apparent distress. TUBES/LINES/DRAINS: RFA PIV SKIN: No jaundice, rashes, or lesions. Ecchymoses on upper extremities. No wounds seen anteriorly. Skin temperature appropriate. Not diaphoretic. HEAD: Atraumatic. Normocephalic. EYES: Pupils equal and round and reactive. Extraocular motions intact. No scleral icterus. No injection or drainage. Fundi not examined. ENT: Hearing grossly normal. Nose without bleeding or purulent drainage. Throat without visible erythema, exudates, masses, or lesions. NECK: Trachea midline. Supple, nontender. No palpable thyroid enlargement or nodularity. CARDIOVASCULAR: Regular rhythm, controlled rate, positive lift, no rub or gallop. RESPIRATORY/CHEST: Symmetric, unlabored respirations. Clear to auscultation. Breath sounds equal bilaterally. No wheezes, rales, or rhonchi. GASTROINTESTINAL: Abdomen soft, non-tender, nondistended. No hepato-splenomegaly , or palpable masses. No guarding. Bowel sounds present. GENITOURINARY: Without palpable bladder distension. MUSCULOSKELETAL: Extremities without clubbing, cyanosis, or edema. No joint tenderness or effusion noted. No calf tenderness. No mottling or clubbing. LYMPHATICS: No palpable cervical or supraclavicular adenopathy. NEUROLOGICAL: Awake and alert. Motor and sensory grossly within normal limits. Follows commands. Cognitively sharp. Moves all extremities. PSYCHIATRIC: Flat affect, mildly distracted, no apparent hallucinations or other psychotic thought process. Diagnostic Tests Laboratory Laboratory Tests Test 12/31/16 05:50 12/31/16 13:50 White Blood Count 8.7 TH/MM3 (4.0-11.0) Red Blood Count 5.04 MIL/MM3 (4.50-5.90) Hemoglobin 15.1 GM/DL (13.0-17.0) Hematocrit 45.1 % (39.0-51.0) Mean Corpuscular Volume 89.5 FL (80.0-100.0) Mean Corpuscular Hemoglobin 29.9 PG (27.0-34.0) Mean Corpuscular Hemoglobin Concent 33.4 % (32.0-36.0) Red Cell Distribution Width 14.1 % (11.6-17.2) Platelet Count 169 TH/MM3 (150-450) Mean Platelet Volume 8.4 FL (7.0-11.0) Neutrophils (%) (Auto) 73.3 % (16.0-70.0) Lymphocytes (%) (Auto) 11.1 % (9.0-44.0) Monocytes (%) (Auto) 9.8 % (0.0-8.0) Eosinophils (%) (Auto) 4.6 % (0.0-4.0) Basophils (%) (Auto) 1.2 % (0.0-2.0) Neutrophils # (Auto) 6.4 TH/MM3 (1.8-7.7) Lymphocytes # (Auto) 1.0 TH/MM3 (1.0-4.8) Monocytes # (Auto) 0.8 TH/MM3 (0-0.9) Eosinophils # (Auto) 0.4 TH/MM3 (0-0.4) Basophils # (Auto) 0.1 TH/MM3 (0-0.2) CBC Comment DIFF FINAL Differential Comment Prothrombin Time 34.1 SEC (9.8-11.6) Prothromb Time International Ratio 2.9 RATIO Activated Partial Thromboplast Time 41.1 SEC (24.3-30.1) Blood Urea Nitrogen 18 MG/DL (7-18) Creatinine 1.07 MG/DL (0.60-1.30) Random Glucose 107 MG/DL (74-106) Total Protein 6.6 GM/DL (6.4-8.2) Albumin 3.5 GM/DL (3.4-5.0) Calcium Level 9.0 MG/DL (8.5-10.1) Magnesium Level 1.9 MG/DL (1.5-2.5) Alkaline Phosphatase 69 U/L (45-117) Aspartate Amino Transf (AST/SGOT) 14 U/L (15-37) Alanine Aminotransferase (ALT/SGPT) 18 U/L (12-78) Total Bilirubin 0.6 MG/DL (0.2-1.0) Sodium Level 134 MEQ/L (136-145) Potassium Level 4.0 MEQ/L (3.5-5.1) Chloride Level 99 MEQ/L (98-107) Carbon Dioxide Level 26.1 MEQ/L (21.0-32.0) Anion Gap 9 MEQ/L (5-15) Estimat Glomerular Filtration Rate 69 ML/MIN (>89) Lactic Acid Level 0.8 mmol/L (0.4-2.0) Total Creatine Kinase 82 U/L (39-308) Troponin I 0.03 NG/ML (0.02-0.05) B-Type Natriuretic Peptide 505 PG/ML (0-100) Lipase 78 U/L (73-393) Thyroid Stimulating Hormone 3rd Gen 1.360 uIU/ML (0.358-3.740) Urine Color YELLOW (YELLW/STRAW) Urine Turbidity CLEAR (CLEAR) Urine pH 6.0 (5.0-8.5) Urine Specific [place] 1.014 (1.002-1.035) Urine Protein NEG mg/dL (NEG-TRACE) Urine Glucose (UA) NEG mg/dL (NEG) Urine Ketones NEG mg/dL (NEG) Urine Occult Blood MOD (NEG) Urine Nitrite NEG (NEG) Urine Bilirubin NEG (NEG) Urine Urobilinogen LESS THAN 2.0 MG/DL (LESS Urine Leukocyte Esterase SMALL (NEG) Urine RBC 30 /hpf (0-3) Urine WBC 2 /hpf (0-5) Urine Squamous Epithelial Cells <1 /hpf (0-5) Microscopic Urinalysis Comment CULT NOT INDICATED Result Diagram: 12/31/16 0550 12/31/16 0550 Imaging Last Impressions Chest X-Ray 12/31/16 0506 Signed Impressions: Service Date/Time: Saturday, December 31, 2016 05:08 - CONCLUSION: 1. Left PICC line in superior vena cava. Tortuous aorta. No active disease. Cliff Kearney MD Patient/Family Conference Present at Family Conference: No family members available during discussion with patient. Issues Discussed: * Palliative care role, purpose, approach * Additional medical, psychosocial, and spiritual history * Patients general health, functional status, and cognitive changes in the months leading up to the current hospitalization * Patient/family understanding of the current medical problems * Patient/family understanding of prognosis * Patients goals of care as best understood from advance directives and/or conversations and/or values * Current medical treatment options and benefits/burdens of those options * Likely scenarios comparing ongoing aggressive care with a transition to comfort measures only * Questions answered to the best of my ability * Palliative care contact information provided Assessment and Plan Pertinent Non-Medical Issues Psychosocial: This is a 66-year-old male previously lived in [place], currently resides in [place], . He states that he learned today that he has end-stage heart disease with no further interventions available and at this time does not wish to talk. Spiritual: Paper Steamer available. Legal: He wishes to be his decision maker. Ethical issues impacting care: None Important Contacts -Cass Patel Prognosis His prognosis is poor. His ejection fraction continues to decline and has been as low as a documented 5-10%. He has been worked up at [facility] for heart transplant, but per Dr. Alicia's note he is not a candidate for heart transplant. He does have a implanted defibrillator and we did discuss the possibility of deactivating the defibrillator portion as he is staying at this time he thinks he should be a DO NOT RESUSCITATE. He does wish to spend the weekend considering this new diagnosis, discuss it with his and then see his regular table assembler metal, Dr. Alicia early next week to determine whether or not to deactivate the defibrillator and change his status to DNR. He has been cleared for discharge home at this time. Contact information was provided to him for the palliative care team in case he required more information or had questions. Code Status: Full Code Plan PLAN: Legal decision maker: Patient is currently capacitated to make his own decisions however would want his , Cass to make decisions in case he was unable to. Goals: Currently aggressive. CODE STATUS: FULL CODE SYMPTOMS: * Dyspnea - currently stable on room air. At risk for significant dyspnea secondary to chronic systolic heart failure, end-stage heart disease. * Chest pain - currently having no chest pain. On aspirin, metoprolol, lisinopril, oxycodone. Medications optimized for heart failure. * Dizziness - patient complains of chronic dizziness in spite of adequate blood pressure. This is likely a side effect of the end-stage heart disease. Ejection fraction in September was 20-25% but has been documented as low as 5-10% in [place] during his [facility] workup for heart transplant. Summary: This is a 66-year-old male with end-stage ischemic cardiomyopathy, heart failure , no further aggressive interventions are available for treatment. As he was given this diagnosis today he wishes to take some time to process this information, discussed with his and then consult with his table assembler metal Dr. Alicia next week for end-of-life decisions. This was discussed with Dr. Alicia and he is in agreement with this plan, wishing the patient to take some time to process prior to making decisions for a DO NOT RESUSCITATE and defibrillator deactivation. He is scheduled for discharge home during the weekend. He palliative care contact information was provided to the patient in case any further questions arise after discharge. Palliative care will continue to follow the patient during hospital course as condition evolves, to assist patient/decision-maker with understanding of their medical conditions, weighing benefits/burdens of treatment options, for clarification of goals of treatment. Additionally will assist with any symptoms of palliative concern Time Spent >50% Counseling/Coord of Care: Yes Thank you for the opportunity to participate in the care of Mr. Hooker. Attestation To help prompt me to consider important information that might be impacting today's encounter and assessment, information from prior notes written by myself or my colleagues may have been "brought forward" into today's note. My signature on this note, however, is an attestation that I personally performed the exam, history, and/or decision-making noted today, and, unless otherwise indicated, the interactions with patient, family, and staff as well as the review of records all occurred today. I also attest that the listed assessment and stated plan reflect my best clinical judgment today based on the combination of historical information, prior notes, and today's exam/ interactions. When time spent is documented, it refers only to time spent today by the signer, or if indicated, combined time spent today by collaborating physician/nurse practitioner. Yoli Marin Jan 02, 2017 5:33 pm
[2017-01-02] MEDS ORDERED: PANTOPRAZOLE SOD 40 MG DELAYED RELEASE TAB PO ONE (18:45)
[2017-01-02] MEDS: ZOLPIDEM TARTRATE 10 MG TAB PO PRN (21:13)
[2017-01-03] VITALS (15 sets, daily range): BP systolic 95–118; BP diastolic 56–74; PULSE 54–95; RESP 16–18; TEMP 98.1–98.6; O2SAT 95–98
[2017-01-03] MEDS: oxyCODONE/ACETAMINOPHEN 5 MG/325 MG TAB PO PRN ×2 (03:18→09:01)
[2017-01-03 07:15] LABS: INTERNATIONAL NORMALIZED RATIO 3.4 RATIO; PROTHROMBIN TIME - PATIENT 39.2 SEC (9.8-11.6)
[2017-01-03] MEDS ORDERED: PANTOPRAZOLE SOD 40 MG DELAYED RELEASE TAB PO SCH (09:00)
[2017-01-03] MEDS: SODIUM CHLORIDE 0.9% FLUSH 10 ML FLUSH IV FLUSH SCH (09:00)
[2017-01-03] MEDS: LISINOPRIL 10 MG TAB PO SCH (09:01)
[2017-01-03] MEDS: METOPROLOL SUCCINATE 25 MG EXTENDED RELEASE TAB PO SCH (09:02)
[2017-01-03] MEDS: TAMSULOSIN HCL 0.4 MG CAP PO SCH (09:02)
[2017-01-03] MEDS: DOCUSATE SODIUM 50 MG/SENNA 8.6 MG TAB PO SCH (09:02)
[2017-01-03] MEDS: ASPIRIN 81 MG CHEW TAB CHEW SCH (09:02)
[2017-01-03] MEDS ORDERED: PANT40TA3 PO (12:46)
[2017-01-03] MEDS ORDERED: OXYC1TAB63 PO (12:46)
[2017-01-03] MEDS ORDERED: LISI10TA3 PO ×2 (12:46→12:51)
[2017-01-03] MEDS ORDERED: METO25TA6 PO (12:46)
--- NOTE | 2017-01-03 12:47 | HHI.DS ---
Discharge Summary Admission Date Dec 31, 2016 at 8:52 am Discharge Date: Jan 03, 2017 Admitting Diagnosis Cp r/o MO, ChF exacerbation (1) Congestive heart failure ICD Code: I50.9 - Congestive heart failure Status: Acute (2) CAD (coronary artery disease) ICD Code: I25.10 - CAD (coronary artery disease) Status: Chronic (3) Atrial flutter ICD Code: I48.92 - Unspecified atrial flutter Status: Acute Procedures None. Brief History - From Admission Mr. Hooker is a pleasant 66-year-old male with a history of CAD, ischemic cardiomyopathy, likely LV thrombus, atrial flutter who presents to the emergency department due to worsening lower chest wall pain radiating to his lower substernal area, headache as well as shortness of breath. The symptoms have been worsening over last 1 month. He recently went to the ER at [facility] on December 20, 2016 with shortness of breath. Per patient he underwent cardiac catheterization which did not show any acute CAD. He was discharged from [facility] on milrinone drip. He reports no improvement of his symptoms while on milrinone drip. He denies any cough, fever or chills. Denies any abdominal pain. No changes in bladder or bowel habits. He follows up with Dr. Alicia in [place]. CBC/BMP: 12/31/16 0550 12/31/16 0550 Significant Findings Laboratory Tests Test 12/31/16 13:50 01/03/17 05:54 Urine Occult Blood MOD (NEG) Urine Leukocyte Esterase SMALL (NEG) Urine RBC 30 /hpf (0-3) Prothrombin Time 39.2 SEC (9.8-11.6) Imaging Last Impressions Chest X-Ray 12/31/16 0504 Signed Impressions: Service Date/Time: Saturday, December 31, 2016 05:08 - CONCLUSION: 1. Left PICC line in superior vena cava. Tortuous aorta. No active disease. Cliff Kearney MD PE at Discharge GENERAL: AOX3, NAD. SKIN: Warm and dry. HEAD: Normocephalic. EYES: No scleral icterus. No injection or drainage. NECK: Supple, trachea midline. No JVD or lymphadenopathy. CARDIOVASCULAR: Regular rate and rhythm without murmurs, gallops, or rubs. RESPIRATORY: Breath sounds equal bilaterally. No accessory muscle use. GASTROINTESTINAL: Abdomen soft, non-tender, nondistended. MUSCULOSKELETAL: No cyanosis, or edema. BACK: Nontender without obvious deformity. No CVA tenderness. Pt update on day of discharge Patient is doing well. No chest pain, SOB, fever, chills. Family members at bedside. Hospital Course Mr. Hooker is a pleasant 66-year-old male with a history of CAD, ICM , atrial flutter, probable LV thrombus who presents to the emergency department due to lower chest wall pain right more than left radiating to his lower part of the substernal area. He also complains of headache. Given that his symptoms started about a month ago, his symptoms are worsening. He was recently admitted to [facility] on 12/20/2016 and was discharged on milrinone drip. Patient underwent cardiac catheterization without any intervention at [facility]. He follows up with Dr. Alicia (EP) in [place] and follows up with [facility] heart transplant unit. His transplant surgeon at [facility] is Dr. Cast. - Coronary artery disease with previous stent placement - Chronic systolic congestive heart failure - Severe ischemic cardiomyopathy - Patient's last echo on 09/25/2016 --> Technically difficult study. EF 20-25% , diffuse global hypokinesis. - Currently on Aspirin 81mg Qday, Metoprolol tartrate 12.5 mg Qday, Lisinopril 5mg Qday. - Will request records from [facility] including cath report, progress notes and echo report. - Cardiology consulted - stated patient has end stage heart failure and not a candidate for heart transplant. - Patient's HF is consistent with NYHA Class II symptoms. No further milrinone. - Discussed at length with transplant surgeon Dr. Cast from [facility] on 12/31/2016 who agreed with discontinuing Milrinone. - Reviewed echocardiogram done at [facility] - shows ejection fraction 5-10%. - Patient is advised to follow-up with heart failure program at [facility]. - Hx of Probable LV thrombus - Hx of Atrial flutter - Will continue Metoprolol 12.5mg Qday. - Continue Warfarin. INR 2.9 on 12/31/2016. - Headache - Insomnia - Per patient, only Percocet helps with headache. I informed him that too much opioids can cause headache as well. - Will continue Percocet for symptom control for now. - Ambien 10mg QHS for insomnia (home med). We had a long discussion prior to discharge today. In general, I advised patient to discuss with [facility] about his prognosis and future plans including LVAD support in future. Currently, patient is on KESHA inhibitor and beta kia. 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 Pt Condition on Discharge: Fair Discharge Disposition: Discharge Home Discharge Time: > 30 minutes Discharge Instructions DIET: Follow Instructions for: Heart Healthy Diet Activities you can perform: Regular-No Restrictions Follow up Referrals: Cardiology - 1 Week with [facility] New Medications: Lisinopril (Lisinopril) 10 Mg Tab 15 MG PO DAILY, #45 TAB 0 Refills Metoprolol Succinate ER 24 HR (Metoprolol Succinate ER 24 HR) 25 Mg Tab 25 MG PO DAILY for Heart, #30 TAB 0 Refills Oxycodone-Acetaminophen (Oxycodone-Acetaminophen) 5-325 mg Tab 1 TAB PO Q6H PRN for HEADACHE, PAIN 5-10, #40 TAB Pantoprazole (Pantoprazole) 40 Mg Tab 40 MG PO DAILY for Reflux, #30 TAB Continued Medications: Aspirin (Aspirin) 81 Mg Chew 81 MG CHEW DAILY, TAB 0 Refills Warfarin (Warfarin) 2.5 Mg Tab 2.5 MG PO EVERY OTHER DAY for Blood Clot Prevention, #30 TAB 0 Refills Warfarin (Warfarin) 5 Mg Tab 5 MG PO EVERY OTHER DAY for Blood Clot Prevention, TAB 0 Refills Zolpidem ER (Ambien CR) 12.5 Mg Tab 12.5 MG .ROUTE HS PRN for SLEEP, #1 TAB 0 Refills Discontinued Medications: Cimetidine (Tagamet Hb) 200 Mg Tab 200 MG .ROUTE BID PRN for HEARTBURN, TAB 0 Refills Lisinopril (Lisinopril) 2.5 Mg Tab 2.5 MG PO DAILY, #30 TAB 0 Refills Metoprolol Tartrate (Metoprolol Tartrate) 25 Mg Tab 25 MG PO DAILY, TAB 0 Refills Milrinone in Dextrose (Milrinone in Dextrose 20 mg/100Ml) 20 Mg/100 Ml (200 Mcg/ Ml) Inj 0.125 MCG DAILY Iris Damon DO Jan 03, 2017 12:47
== END 2017-01-03 14:20 | disposition home or self-care (01) | DRG 292 ==
LOC: NEPC 03:19 → NEDA 08:48 → OBSVTOIN 08:52 → HCIS 12:05
PROVIDERS: ADMIT Hospitalist; ATTEND Hospitalist
DX: I11.0 Hypertensive heart disease with heart failure (principal); I48.92 Unspecified atrial flutter; I24.0 Acute coronary thrombosis not resulting in myocardial infarction; I48.91 Unspecified atrial fibrillation; K51.90 Ulcerative colitis, unspecified, without complications; Z79.01 Long term (current) use of anticoagulants; I25.5 Ischemic cardiomyopathy; I50.22 Chronic systolic (congestive) heart failure; I25.10 Atherosclerotic heart disease of native coronary artery without angina pectoris; G47.00 Insomnia, unspecified; Z66 Do not resuscitate; R42 Dizziness and giddiness; K21.9 Gastro-esophageal reflux disease without esophagitis; Z95.5 Presence of coronary angioplasty implant and graft; Z95.810 Presence of automatic (implantable) cardiac defibrillator; Z79.82 Long term (current) use of aspirin
CPT/HCPCS: 71010; 80053; 81001; 82550; 83605; 83690; 83735; 83880; 84443; 84484; 85025; 85610; 85730; 93005; J0461

== ENCOUNTER 2017-02-28 04:46 | Emergency (ER) | payer MEDICARE ==
[~2017-02-28] VITALS: Ht 170.2 cm; Wt 65.0 kg
[~2017-02-28 04:46] MED LIST changes: +ASPI-516 CHEW; -ASPI81CH CHEW; -CIME200T23; -COUM5TAB PO; +LISI10TA3 PO; -LISI2.5T3 PO; -METO-426 PO; +METO1TAB42 PO; +OXYC1TAB63 PO; +PANT40TA3 PO; -SPIR25TA PO; +WARF-23 PO
[2017-02-28 04:48] VITALS: BP 88/60; PULSE 89; RESP 18; TEMP 98.3; O2SAT 99
[2017-02-28 05:04] VITALS: BP 109/70; PULSE 62; RESP 18; O2SAT 97
[2017-02-28] MEDS ORDERED: GABA300C5 PO (05:04)
[2017-02-28] MEDS ORDERED: ATOR40TA16 PO (05:04)
[2017-02-28 05:39] LABS: AUTOMATED NEUTROPHIL # 5.6 TH/MM3 (1.8-7.7); BASOPHIL # 0.2 TH/MM3 (0-0.2); BASOPHIL % 2.3 % (0.0-2.0); EOSINOPHIL # 0.7 TH/MM3 (0-0.4); EOSINOPHIL % 8.8 % (0.0-4.0); HEMO FLAGS DIFF FINAL; LYMPH % 13.1 % (9.0-44.0); LYMPHOCYTE # 1.1 TH/MM3 (1.0-4.8); MEAN CELL VOLUME 88.3 FL (80.0-100.0); MEAN CORPUSCULAR HEMOGLOBIN 30.3 PG (27.0-34.0); MEAN CORPUSCULAR HGB CONC 34.3 % (32.0-36.0); MONO % 8.8 % (0.0-8.0); PLATELET COUNT 200 TH/MM3 (150-450); RED BLOOD COUNT 4.65 MIL/MM3 (4.50-5.90); RED CELL DISTRIBUTION WIDTH 13.7 % (11.6-17.2); WHITE BLOOD COUNT 8.3 TH/MM3 (4.0-11.0)
--- NOTE | 2017-02-28 05:39 | RADRPT ---
EXAM DATE/TIME: 02/28/2017 05:19 [facility] COMPARISON: CHEST SINGLE AP, December 31, 2016, 5:08. INDICATIONS : Chest pain. MEDICAL HISTORY : Cardiovascular disease. SURGICAL HISTORY : Pacemaker. ENCOUNTER: Initial ACUITY: 1 day PAIN SCORE: 7/10 LOCATION: Bilateral chest FINDINGS: The cardiac silhouette is enlarged in transverse diameter. A defibrillator device is in place via a r ight sided approach. There are findings of congestive heart failure with interstitial and alveolar op acity bilaterally. Diffusion weighted imaging demonstrates no abnormality. CONCLUSION: 1. Cardiomegaly and findings of congestive heart failure. Bridger Coburn MD on February 28, 2017 at 5:37 Board Certified Radiologist. This report was verified electronically.
[2017-02-28 05:42] LABS: ANION GAP 7 MEQ/L (5-15); AST (GOT) 24 U/L (15-37); BICARBONATE 27.6 MEQ/L (21.0-32.0); BLOOD UREA NITROGEN 23 MG/DL (7-18); CHLORIDE 103 MEQ/L (98-107); GLOMERULAR FILTRATION RATE 73 ML/MIN (>89); POTASSIUM 4.3 MEQ/L (3.5-5.1); SODIUM (NA) 138 MEQ/L (136-145)
[2017-02-28 05:43] LABS: ALT (GPT) 28 U/L (12-78)
[2017-02-28 05:48] LABS: ALKALINE PHOSPHATASE 72 U/L (45-117); CREATINE KINASE 84 U/L (39-308); TOTAL BILIRUBIN ADULT 0.4 MG/DL (0.2-1.0)
--- NOTE | 2017-02-28 07:01 | RADRPT ---
EXAM DATE/TIME: 02/28/2017 06:36 [facility] COMPARISON: No previous studies available for comparison. INDICATIONS : Abdominal pain. ORAL CONTRAST: No oral contrast ingested. RADIATION DOSE: 6.64 CTDIvol (mGy) MEDICAL HISTORY : Myocardial infarction. Ulcerative colitis. SURGICAL HISTORY : Appendectomy. Cholecystectomy.Pacemaker.Hiatal hernia repair ENCOUNTER: Initial ACUITY: 1 day PAIN SCALE: 6/10 LOCATION: abdomen TECHNIQUE: Volumetric scanning of the abdomen and pelvis was performed. Using automated exposure control and ad justment of the mA and/or kV according to patient size, radiation dose was kept as low as reasonably achievable to obtain optimal diagnostic quality images. DICOM format image data is available electro nically for review and comparison. FINDINGS: There is subsegmental atelectasis in the both bases. The cardiac silhouette is enlarged in transvers e diameter. A small hiatal hernia is present. The liver and spleen are normal in size and no focal defects are id entified. There are multiple stones within the gallbladder without wall thickening or pericholecystic fluid the largest measuring 3 mm. The pancreas demonstrates normal contour without evidence of mass or ductal dilatation. The adrenal glands are unremarkable. There is a single simple cyst in the left kidney measuring 5 cm x 4 cm. There is a possible 15 mm solid mass in the right kidney. Malignancy i s not excluded. MRI is recommended for further evaluation if clinically indicated. Examination of the pelvis demonstrates no evidence of free fluid or pelvic mass. No abnormally enlarg ed inguinal or retroperitoneal lymph nodes are present. The bladder is unremarkable. The prostate gla nd is moderately enlarged impinging on the bladder base. CONCLUSION: 1. No evidence of acute abdominal or pelvic process. No masses are identified. 2. Possible 1.5 cm solid mass right kidney. MRI is recommended for further evaluation if clinically indicated. 3. Cholelithiasis 1. Bridger Coburn MD on February 28, 2017 at 6:52 Board Certified Radiologist. This report was verified electronically.
--- NOTE | 2017-02-28 07:02 | RADRPT ---
EXAM DATE/TIME: 02/28/2017 06:41 [facility] COMPARISON: No previous studies available for comparison. INDICATIONS : Headache. RADIATION DOSE: 56.35 CTDIvol (mGy) MEDICAL HISTORY : Myocardial infarction. Ulcerative colitis. SURGICAL HISTORY : Pacemaker. Appendectomy.Cholecystectomy.Hiatal hernia repair ENCOUNTER: Initial ACUITY: 1 day PAIN SCALE: 6/10 LOCATION: cranial TECHNIQUE: Multiple contiguous axial images were obtained of the head. Using automated exposure control and adj ustment of the mA and/or kV according to patient size, radiation dose was kept as low as reasonably a chievable to obtain optimal diagnostic quality images. DICOM format image data is available electro nically for review and comparison. FINDINGS: CEREBRUM: The ventricles are normal for age. No evidence of midline shift, mass lesion, hemorrhage or acute in farction. No extra-axial fluid collections are seen. POSTERIOR FOSSA: The cerebellum and brainstem are intact. The 4th ventricle is midline. The cerebellopontine angle i s unremarkable. EXTRACRANIAL: The visualized portion of the orbits is intact. SKULL: The calvaria is intact. No evidence of skull fracture. CONCLUSION: No acute disease. No evidence of acute infarct, hemorrhage, mass or edema. Lebron Crain MD on February 28, 2017 at 6:59 Board Certified Radiologist. This report was verified electronically.
--- NOTE | 2017-02-28 07:36 | PD ---
HPI Chief Complaint: Flank/Kidney Pain Time Seen by Provider: 05:04 Travel History International Travel<30 days: No Contact w/Intl Traveler<30days: No Traveled to known affect area: No History of Present Illness HPI Patient awoke from sleep feeling bilateral back pain headache sweating dizziness . Patient comes to the ER saying he has to 'catch a plane to [place] today but guesses he won't make it' . Patient has a history of having TIAs symptoms, chronic dizziness .. has seen neurologist and his TIA never have lasted to RIND or CVA deficit. Patient has bilateral flank and kidney area pain denies any dysuria ..patient has muscle aches diffuse. and headache , Lots of vague changing complaints at 4 AM . Initial EKG has Q waves in V2 V3 and the morphologies are exactly the same as prior EKGs. Labs sent and CTs order to rule out renal stones and Head CT at his wifes request. due to his recurrent HAs PFSH Past Medical History Hx Anticoagulant Therapy: Yes Asthma: No Blood Disorders: No Anxiety: No Depression: No Cancer: No Cardiac Catheterization: Yes (4 STENTS) Cardiovascular Problems: Yes ([place], DEFIBRILATOR, AND PACEMAKER ) High Cholesterol: No Chemotherapy: No Chest Pain: No Congestive Heart Failure: No COPD: No Diabetes: No Diminished Hearing: No Diverticulitis: Yes Endocrine: No Gastrointestinal Disorders: Yes (ULCERATIVE CHOLITIS, CHRONES ESOPHAGEAL REFLUX ) GERD: Yes Genitourinary: No Hiatal Hernia: Yes (REPAIRED 25 YRS AGO) Hypertension: Yes Immune Disorder: No Implanted Vascular Access Dvce: Yes Musculoskeletal: No Neurologic: No Psychiatric: No Reproductive: No Respiratory: Yes (FREQUENT SOB ON EXERTION) Myocardial Infarction: Yes Radiation Therapy: No Sleep Apnea: No Thyroid Disease: No Ulcer: Yes ?: Not Past Surgical History Abdominal Surgery: Yes (HERNIA REPAIR X3) AICD: Yes (2007 metronic defib placed on r; defib on l removed) Appendectomy: Yes Cardiac Surgery: Yes (PACEMAKER) Cholecystectomy: Yes Coronary Stent: Yes Ear Surgery: No Endocrine Surgery: No Eye Surgery: Yes (2007) Genitourinary Surgery: No Neurologic Surgery: Yes (BACK) Oral Surgery: Yes (TONSILS REMOVED) Pacemaker: Yes Thoracic Surgery: No Tonsillectomy: Yes (1966) Other Surgery: Yes (SINUS KIMBERLY; 10" bowel removed 1986; hernia 2007) Social History Alcohol Use: No Tobacco Use: No Substance Use: No Allergies-Medications (Allergen,Severity, Reaction): Coded Allergies: clindamycin (Unverified Allergy, Severe, RASH, FEVER, 12/31/16) infliximab (Unverified Allergy, Severe, FEVER, RASH, 12/31/16) infliximab-dyyb (Unverified Allergy, Severe, FEVER, RASH, 12/31/16) penicillin G (Unverified Allergy, Severe, RASH, 12/31/16) STATES HES NOT ALLERGIC ANY MORE amiodarone (Verified Allergy, Unknown, Hypotension, 12/31/16) "MY BODY DIDN'T REACT THE RIGHT WAY TO IT" Reported Meds & Prescriptions Reported Meds & Active Scripts Active Lisinopril 10 Mg Tab 15 Mg PO DAILY Metoprolol Succinate ER 24 HR (Metoprolol Succinate) 25 Mg Tab 25 Mg PO DAILY Pantoprazole (Pantoprazole Sodium) 40 Mg Tab 40 Mg PO DAILY Oxycodone-Acetaminophen 5-325 mg Tab 1 Tab PO Q6H PRN Reported Gabapentin 300 Mg Cap 300 Mg PO HS Atorvastatin (Atorvastatin Calcium) 40 Mg Tab 40 Mg PO HS Warfarin 5 Mg Tab 5 Mg PO EVERY OTHER DAY Ambien CR (Zolpidem Tartrate) 12.5 Mg Tab 12.5 Mg .ROUTE HS PRN Warfarin 2.5 Mg Tab 2.5 Mg PO EVERY OTHER DAY Aspirin 81 Mg Chew 81 Mg CHEW DAILY Physical Exam Narrative GENERAL: Patient appears mildly anxious however vitals are within normal limits he is alert and oriented 3 SKIN: Warm and dry. HEAD: Atraumatic. Normocephalic. EYES: Pupils equal and round. No scleral icterus. No injection or drainage. ENT: No nasal bleeding or discharge. Mucous membranes pink and moist. NECK: Trachea midline. No JVD. CARDIOVASCULAR: Regular rate and rhythm. RESPIRATORY: No accessory muscle use. Clear to auscultation. Breath sounds equal bilaterally. GASTROINTESTINAL: Abdomen soft, non-tender, nondistended. Hepatic and splenic margins not palpable. MUSCULOSKELETAL: Extremities without clubbing, cyanosis, or edema. No obvious deformities. Back: bilateral iliac crests to flank pain bilaterally NEUROLOGICAL: Awake and alert. No obvious cranial nerve deficits. Motor grossly within normal limits. Five out of 5 muscle strength in the arms and legs. Normal speech. PSYCHIATRIC: Appropriate mood and affect; insight and judgment normal. Data Data Last Documented VS Vital Signs Date Time Temp Pulse Resp B/P (MAP) Pulse Ox O2 Delivery O2 Flow Rate FiO2 02/28/17 08:42 02/28/17 05:04 62 18 97 Nasal Cannula 2.00 02/28/17 04:48 98.3 Orders Orders Complete Blood Count With Diff (02/28/17 05:05) Comprehensive Metabolic Panel (02/28/17 05:05) Ckmb (Isoenzyme) Profile (02/28/17 05:05) Troponin I (02/28/17 05:05) Magnesium (Mg) (02/28/17 05:05) Phosphorus (Po4) (02/28/17 05:05) Electrocardiogram (02/28/17 ) Chest, Pa & Lat (02/28/17 ) Ct Abd/Pel W/O Iv Contrast (02/28/17 ) Ct Brain W/O Iv Contrast(Rout) (02/28/17 ) Ed Discharge Order (02/28/17 07:58) Labs Laboratory Tests Test 02/28/17 05:14 White Blood Count 8.3 TH/MM3 Red Blood Count 4.65 MIL/MM3 Hemoglobin 14.1 GM/DL Hematocrit 41.0 % Mean Corpuscular Volume 88.3 FL Mean Corpuscular Hemoglobin 30.3 PG Mean Corpuscular Hemoglobin Concent 34.3 % Red Cell Distribution Width 13.7 % Platelet Count 200 TH/MM3 Mean Platelet Volume 8.9 FL Neutrophils (%) (Auto) 67.0 % Lymphocytes (%) (Auto) 13.1 % Monocytes (%) (Auto) 8.8 % Eosinophils (%) (Auto) 8.8 % Basophils (%) (Auto) 2.3 % Neutrophils # (Auto) 5.6 TH/MM3 Lymphocytes # (Auto) 1.1 TH/MM3 Monocytes # (Auto) 0.7 TH/MM3 Eosinophils # (Auto) 0.7 TH/MM3 Basophils # (Auto) 0.2 TH/MM3 CBC Comment DIFF FINAL Differential Comment Blood Urea Nitrogen 23 MG/DL Creatinine 1.01 MG/DL Random Glucose 92 MG/DL Total Protein 6.6 GM/DL Albumin 3.1 GM/DL Calcium Level 8.4 MG/DL Phosphorus Level 3.6 MG/DL Magnesium Level 2.0 MG/DL Alkaline Phosphatase 72 U/L Aspartate Amino Transf (AST/SGOT) 24 U/L Alanine Aminotransferase (ALT/SGPT) 28 U/L Total Bilirubin 0.4 MG/DL Sodium Level 138 MEQ/L Potassium Level 4.3 MEQ/L Chloride Level 103 MEQ/L Carbon Dioxide Level 27.6 MEQ/L Anion Gap 7 MEQ/L Estimat Glomerular Filtration Rate 73 ML/MIN Total Creatine Kinase 84 U/L Troponin I 0.04 NG/ML MDM Medical Decision Making Medical Screen Exam Complete: Yes Emergency Medical Condition: Yes Differential Diagnosis renal stones vs colitis, vs headache tension type vs CVA or TIA vs chronic dizziness NOS or anxiety attack. Anxiety highest on my DDx Narrative Course CT head and Abdo negative for acute pathology and labs normal EKG has V2-V3 qwaves with elevated s-t segment but it is exact same morhology as old recent EKG from dec 2016 , he is safe for discharge, He is signed out to the AM MD to Janette when ready Diagnosis Primary Impression: Head ache Additional Impressions: Anxiety Dizziness Disposition: 01 DISCHARGE HOME Condition: Good Martinez Singh MD Feb 28, 2017 07:36
--- NOTE | 2017-02-28 08:10 | PD ---
Physical Exam Narrative Patient was seen by ED physician and signed out to me. Data Data Last Documented VS Vital Signs Date Time Temp Pulse Resp B/P (MAP) Pulse Ox O2 Delivery O2 Flow Rate FiO2 02/28/17 05:04 62 18 109/70 (83) 97 Nasal Cannula 2.00 02/28/17 04:48 98.3 Orders Orders Complete Blood Count With Diff (02/28/17 05:05) Comprehensive Metabolic Panel (02/28/17 05:05) Ckmb (Isoenzyme) Profile (02/28/17 05:05) Troponin I (02/28/17 05:05) Magnesium (Mg) (02/28/17 05:05) Phosphorus (Po4) (02/28/17 05:05) Electrocardiogram (02/28/17 ) Chest, Pa & Lat (02/28/17 ) Ct Abd/Pel W/O Iv Contrast (02/28/17 ) Ct Brain W/O Iv Contrast(Rout) (02/28/17 ) Ed Discharge Order (02/28/17 07:58) Labs Laboratory Tests Test 02/28/17 05:14 White Blood Count 8.3 TH/MM3 Red Blood Count 4.65 MIL/MM3 Hemoglobin 14.1 GM/DL Hematocrit 41.0 % Mean Corpuscular Volume 88.3 FL Mean Corpuscular Hemoglobin 30.3 PG Mean Corpuscular Hemoglobin Concent 34.3 % Red Cell Distribution Width 13.7 % Platelet Count 200 TH/MM3 Mean Platelet Volume 8.9 FL Neutrophils (%) (Auto) 67.0 % Lymphocytes (%) (Auto) 13.1 % Monocytes (%) (Auto) 8.8 % Eosinophils (%) (Auto) 8.8 % Basophils (%) (Auto) 2.3 % Neutrophils # (Auto) 5.6 TH/MM3 Lymphocytes # (Auto) 1.1 TH/MM3 Monocytes # (Auto) 0.7 TH/MM3 Eosinophils # (Auto) 0.7 TH/MM3 Basophils # (Auto) 0.2 TH/MM3 CBC Comment DIFF FINAL Differential Comment Blood Urea Nitrogen 23 MG/DL Creatinine 1.01 MG/DL Random Glucose 92 MG/DL Total Protein 6.6 GM/DL Albumin 3.1 GM/DL Calcium Level 8.4 MG/DL Phosphorus Level 3.6 MG/DL Magnesium Level 2.0 MG/DL Alkaline Phosphatase 72 U/L Aspartate Amino Transf (AST/SGOT) 24 U/L Alanine Aminotransferase (ALT/SGPT) 28 U/L Total Bilirubin 0.4 MG/DL Sodium Level 138 MEQ/L Potassium Level 4.3 MEQ/L Chloride Level 103 MEQ/L Carbon Dioxide Level 27.6 MEQ/L Anion Gap 7 MEQ/L Estimat Glomerular Filtration Rate 73 ML/MIN Total Creatine Kinase 84 U/L Troponin I 0.04 NG/ML MDM Supervised Visit with NICOLETTE: No Differential Diagnosis 66-year-old male with main complains of hissing in the ears and dizziness. Patient has been seen by neurologist at [facility] for this problem. Patient has been taking Neurontin 900 mg daily for this. EKG unchanged from previous EKG. CT and blood test within normal limit. Diagnosis Primary Impression: Cephalgia Qualified Codes: R51 - Headache Additional Impression: Peripheral vertigo Qualified Codes: H81.393 - Other peripheral vertigo, bilateral Eron Qiu MD Feb 28, 2017 08:10
--- NOTE | 2017-02-28 12:46 | EKG ---
Date Performed: 02/28/2017 Time Performed: 04:54:04 PTAGE: 66 years EKG: Sinus rhythm with first degree block and frequent PVCs Anterior wall myocardial infarction of undetermined age wi th some ST elevation and loss of R force across the precordium. PREVIOUS TRACING : 12/31/2016 04.10 Compared to prior tracing no significant change DOCTOR: Jean-Pierre Portillo Interpretating Date/Time 02/28/2017 12:45:14
== END 2017-02-28 09:46 | disposition home or self-care (01) ==
LOC: NEPE 04:46
DX: G45.9 Transient cerebral ischemic attack, unspecified (principal); H81.393 Other peripheral vertigo, bilateral; I25.2 Old myocardial infarction; Z95.0 Presence of cardiac pacemaker; R07.9 Chest pain, unspecified
CPT/HCPCS: 70450; 71020; 74176; 80053; 82550; 83735; 84100; 84484; 85025; 93005; 99285